=== PATIENT | male | born 1950 | race Caucasian/White ===

== ENCOUNTER 2019-10-07 02:40 | Observation (INO) | payer MEDICARE, SELFPAY ==
[2019-10-07] VITALS (122 sets, daily range): BP systolic 106–177; BP diastolic 66–114; PULSE 66–107; RESP 7–28; TEMP 36.6–37.3; O2SAT 87–99; BMI 25.0
--- NOTE | 2019-10-07 02:51 | PC.NURSE ---
EKG done at 0251 and shown to ER doctor
--- NOTE | 2019-10-07 02:52 | XR_ITS ---
WS: [id number] PORTABLE CHEST HISTORY: Chest pain COMPARISON: None available. Hyperinflated lungs with mild emphysema. No mass or pneumonia. Normal vasculature. No pleural effusio n or pneumothorax. Cardiac size: Normal. Mediastinum/Aorta: Mild atherosclerosis aorta. No osseous abnormality seen. XR/XR chest 1V portable [id number] IMPRESSION: No acute cardiopulmonary disease.
--- NOTE | 2019-10-07 02:52 | ECG_ITS ---
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 Measurements Intervals [place] Rate: 77 P: 41 NC: 210 QRS: 38 QRSD: 104 T: 17 QT: 384 QTc: 435 Interpretive Statements SINUS RHYTHM WITH FIRST DEGREE AV BLOCK WITH OCCASIONAL VENTRICULAR PREMATURE COMPLEXES NONSPECIFIC T-WAVE ABNORMALITY No previous ECG available for comparison Electronically Signed On 10-08-2019 0:14:07 CDT by Angel Wiley M.D. [id number]
[2019-10-07 03:09] LABS: Basophils # 0.1 10^3/uL (0.0-0.1); Basophils % 0.5 %; Eosinophils % 0.3 %; Hematocrit 49.5 % (42.0-52.0); Hemoglobin 16.7 g/dL (11.7-16.6); Lymphocytes # 2.2 10^3/uL (0.8-4.8); Lymphocytes % 17.2 %; Mean Corpuscular HGB Conc 33.7 g/dL (30.0-36.0); Mean Corpuscular Hemoglobin 30.8 pg (28.0-34.0); Mean Corpuscular Volume 91.2 fL (80-94); Mean Platelet Volume 11.4 fL (7.4-10.4); Monocytes # 0.7 10^3/uL (0.2-0.9); Monocytes % 5.3 %; Neutrophils # 9.88 10^3/uL (1.8-7.7); Neutrophils % 76.5 %; Nucleated Red Blood Cells % 0 %; Platelet Count 172 10^3/cmm (130-400); Red Blood Count 5.43 10^6/uL (4.1-5.3); Red Cell Distribution Width 13.2 % (12.1-15.1); White Blood Count 12.9 10^3/uL (4.0-10.0)
--- NOTE | 2019-10-07 03:14 | ED_ITS ---
HPI - Chest Pain General: Chief Complaint: Chest Pain Stated Complaint: chest pain Time Seen by Provider: 10/07/19 02:52 History of Present Illness: HPI narrative: 68-year-old male with a history of coronary disease. He has 1 stent to his RCA placed 6 years ago. He reports onset of chest pressure, discomfort, immediately after sexual intercourse this morning. It did not go away on its own, so he came to the emergency department. It is essentially resolved on my exam. He noted some mild shortness of breath. No cough, no fever. He had some nausea that is resolved as well. MD complaint: chest pain and chest discomfort Pertinent past history: coronary artery disease Onset (ago): hour(s) Timing of current episode: constant Prior episodes: No Onset: during exertion Pain location: substernal Pain radiation: none Severity: moderate Quality: tightness and heaviness Relieving factors: nothing Exacerbating factors: nothing Associated symptoms: Reports dyspnea and nausea; Deny abdominal pain, fever(s), palpitations or vomiting Review of Systems Const: Denies: fever(s) Eyes: Denies: change in vision or blurry vision ENMT: Denies: swelling of lips/tongue or sinus pain Card: Reports: chest pain and irregular heart rhythm; Denies: palpitations, edema or swelling of feet/ankles Resp: Reports: dyspnea GI: Reports: nausea; Denies: abdominal pain or vomiting : Denies: difficulty urinating, dysuria, urinary frequency, urinary urgency or hematuria Musc: Denies: neck pain or back pain Skin/Breast: Denies: rash or erythema Neuro: Denies: headache(s), dizziness or vertigo Psych: Denies: anxiety Physical Exam Const: GENERAL APPEARANCE: well developed ORIENTATION/CONSCIOUSNESS: Yes oriented to person, Yes oriented to place and Yes oriented to time HENMT: COMMON NORMALS: normocephalic, external ears normal and Normal external nose present HEAD & SCALP: normocephalic FACE & SINUS: normal facial exam NOSE: Normal external nose present and No nasal discharge present EXTERNAL EAR: Yes external ears normal MOUTH: tongue normal Eye: COMMON NORMALS: Equal, round and reactive pupils present, EOMs intact bilaterally and conjunctivae normal EYELID: eyelids normal CONJUNCTIVA: Yes conjunctivae normal PUPIL: Yes Equal, round and reactive pupils present Neck/C-Spine: GENERAL: No tracheal deviation Chest: COMMONS NORMALS: normal inspection of the chest CHEST: No tenderness Resp: COMMON NORMALS: clear to auscultation bilaterally EFFORT & INSPECTION: No tachypneic, No respiratory distress, No retractions, No uses accessory muscles and No tracheal deviation AUSCULTATION: clear to auscultation bilaterally, no rhonchi, no wheezes and lung sounds not diminished Cardio: COMMON NORMALS: regular rate RATE: regular rate RHYTHM: abnormal rhythm irregularly irregular HEART SOUNDS: no murmurs PERIPHERAL PULSES: radial pulses present GI: INSPECTION: No abdominal distension AUSCULTATION: No Hyperactive bowel sounds present and No Hypoactive bowel sounds present PALPATION: No Guarding due to palpation present (GI) and No Rigid due to palpation PERCUSSION: no dullness to percussion and no tympanic to percussion Neuro: SENSORIUM/ORIENTATION: Yes oriented to person, Yes oriented to place and Yes oriented to time Psych: COMMON NORMALS: mental status grossly normal Skin: COMMON NORMALS: no rashes or lesions noted GENERAL SKIN EXAM: no rashes or lesions noted Course Consultations: Consultation #1: brittaney Time: 04:14 Vital Signs: Vital signs: Vital Signs Temperature 97.8 F 10/07/19 02:47 Pulse Rate 87 10/07/19 03:25 Respiratory Rate 13 10/07/19 03:25 Blood Pressure 125/82 10/07/19 03:55 Pulse Oximetry 99 10/07/19 03:30 MDM - Chest Pain MDM Narrative: Medical decision making narrative: EKG reveals a sinus rhythm with frequent PVCs. He has some flattening of the T waves in inferior leads. Otherwise no acute ST changes. rates in the 60s. Hemoglobin 16.7. White count 12.9. His potassium is mildly low. His first troponin is 51, which is significantly elevated given a creatinine of only 1.1. With his history, slightly abnormal EKG, and elevated troponin, he will be observed. He is still pain-free. Lab Data: Labs: Lab Results 10/07/19 10/07/19 10/07/19 Range/Units 02:57 02:57 02:57 WBC 12.9 H (4.0-10.0) 10^3/ uL RBC 5.43 H (4.1-5.3) 10^6/u L Hgb 16.7 H (11.7-16.6) g/dL Hct 49.5 (42.0-52.0) % MCV 91.2 (80-94) fL MCH 30.8 (28.0-34.0) pg MCHC 33.7 (30.0-36.0) g/dL RDW 13.2 (12.1-15.1) % Plt Count 172 (130-400) 10^3/c mm MPV 11.4 H (7.4-10.4) fL Neut % (Auto) 76.5 % Lymph % (Auto) 17.2 % Montgomery % (Auto) 5.3 % Eos % (Auto) 0.3 % Baso % (Auto) 0.5 % Neut # (Auto) 9.88 H (1.8-7.7) 10^3/u L Lymph # (Auto) 2.2 (0.8-4.8) 10^3/u L Montgomery # (Auto) 0.7 (0.2-0.9) 10^3/u L Eos # (Auto) 0.0 (0.0-0.8) 10^3/u L Baso # (Auto) 0.1 (0.0-0.1) 10^3/u L Nucleated RBC % (a uto) 0 % Nucleated RBCs # 0.0 /100WBC Sodium 137 (136-145) mmol/L Potassium 3.3 L (3.5-5.1) mmol/L Chloride 103 (98-107) mmol/L Carbon Dioxide 22 (22-29) mmol/L Anion Gap 15.3 (5-19) BUN 13 (8-23) mg/dL Creatinine 1.1 (0.7-1.2) mg/dL GFR Calculation 66.4 L (90-130) mL/min Glucose 162 H (65-115) mg/dL Calculated Osmolal ity 284 L (285-295) mOsm/k g Calcium 10.0 (8.5-10.5) mg/dL Total Bilirubin 1.0 (0.15-1.2) mg/dL AST 22 (0-40) U/L ALT 20 (0-41) U/L Alkaline Phosphata se 131 H (40-130) IU/L Creatine Kinase 81 (39-308) U/L Troponin T Baselin e 51 H (0-15) ng/L NT-Pro-B Natriuret Pep 1136 H (0-125) pg/mL Total Protein 7.8 (6.6-8.7) g/dL Albumin 4.7 (3.5-5.2) g/dL Globulin 3.1 (1.3-4.6) g/dL Coding Level of Care Code ED Hooker Up for Chg Fwd Exam Comprehensive
[2019-10-07 03:30] LABS: Troponin(5th) Baseline 51 ng/L (0-15)
[2019-10-07 03:39] LABS: Alanine Aminotransferase 20 U/L (0-41); Albumin Level 4.7 g/dL (3.5-5.2); Alkaline Phosphatase 131 IU/L (40-130); Anion Gap 15.3 (5-19); Aspartate Amino Transferase 22 U/L (0-40); Blood Urea Nitrogen 13 mg/dL (8-23); Carbon Dioxide 22 mmol/L (22-29); Chloride 103 mmol/L (98-107); Creatine Phosphokinase 81 U/L (39-308); Globulin 3.1 g/dL (1.3-4.6); Glomerular Filtration Rate 66.4 mL/min (90-130); Glucose 162 mg/dL (65-115); NT Pro B Type Natriuretic Pept 1136 pg/mL (0-125); Osmolality Calculated 284 mOsm/kg (285-295); Potassium 3.3 mmol/L (3.5-5.1); Sodium 137 mmol/L (136-145); Total Protein 7.8 g/dL (6.6-8.7)
--- NOTE | 2019-10-07 04:07 | P.HP_ITS ---
Providers/Chief Complaint Primary Care Provider: Myriam Cabrera MD Chief Complaint: chest pain History of Present Illness Jean Carlos Chavez is a 68 year old male who carries history of established coronary disease with stent placement 6 years ago in [place], [place] came in with chief complaint of chest pain. Patient is stating that his chest pain started after sexual intercourse today, it lasted about an hour until he arrived in the ER and resolved spontaneously, he did not experience shortness of breath, orthopnea, PND, fever, diaphoresis, lightheadedness or radiation of pain towards his back. He is stating that this chest pain is not similar to the one when he had stent placed, he would describes this chest discomfort as achy without pressure sensation. He did not take any performance-enhancing medications, he did use marijuana this morning. Is very active for his age, does not take anything other than aspirin and metoprolol. He does not check his blood pressure at home. No recent fever, nausea, vomiting. Diagnosis in the ER revealed normal hemodynamics, blood pressure at the time of my evaluation was 160/94mmhg, he was chest pain-free, EKG showing multiple PVCs with flat T waves otherwise no ischemic or infarctive changes, troponin 50, polycythemia, leukocytosis, hypokalemia, BNP 1136, Review of Systems Const: Reports: chills, body aches and fatigue; Denies: fever(s) Eyes: Denies: change in vision ENMT: Denies: throat pain Card: Reports: chest pain; Denies: palpitations, irregular heart rhythm, swelling of feet/ankles, lightheadedness, syncope, pre-syncope, dyspnea on exertion or orthopnea Resp: Denies: dyspnea GI: Denies: abdominal pain, nausea, diarrhea or constipation : Denies: flank pain Musc: Denies: neck pain Skin/Breast: Denies: rash Neuro: Denies: headache(s) Psych: Denies: anxiety Endo: Denies: polyuria Damon/Lymph: Denies: easy bruising All/Imm: Denies: urticaria Medications/Allergies Allergies Allergy/AdvReac Type Severity Reaction Status Date / Time hydrocodone Allergy ADR-Confusi Verified 10/07/19 02:51 on PFSH Acute PFSH: Medical History (Updated 10/07/19 @ 04:32 by Sailaja Beasley MD) Coronary artery disease Marijuana abuse Unstable angina Surgical History (Updated 10/07/19 @ 04:28 by Sailaja Beasley MD) H/O right coronary artery stent placement Family History (Updated 10/07/19 @ 04:28 by Sailaja Beasley MD) Other CAD (coronary artery disease) Social History (Updated 10/07/19 @ 04:29 by Sailaja Beasley MD) Smoking and tobacco status: never smoked Alcohol intake: never Substance/Drug Use: current Substance/Drug use type: Marijuana Household members: spouse Housing: House Marital status: Current occupational status: retired Vitals/I&O/Wt Last Vital Signs Temp 97.8 F 10/07/19 02:47 Pulse 87 10/07/19 03:25 Resp 13 10/07/19 03:25 BP 125/82 10/07/19 03:55 Pulse Ox 99 10/07/19 03:30 Weight last 48 hrs Weight 86.183 kg Physical Exam Narrative: EXAM NARRATIVE: Very healthy elderly male Well-built male Chest pain-free S1, S2 no tachycardia or heart failure signs clinically Abdomen soft nontender bowel sounds present Lungs are clear to auscultation Appropriate mood and affect GCS 15 awake alert orientedx3 Lower extremity no edema gangrene or ulcer No active respiratory distress Data : 10/07/19 02:57 10/07/19 02:57 A&P Assessment and plan (1) Unstable angina: Status: Acute (2) PVCs (premature ventricular contractions): Status: Acute (3) Hypertensive urgency: Status: Acute Additional A&P Information Unstable angina Chest pain after sexual intercourse, substernal chest discomfort, troponin 51, EKG showing multiple PVCs with flat T waves I would monitor him overnight in CSU, serial troponins and EKG, Echo in the morning to rule out wall motion abnormality considering his established coronary disease Will obtain drug screen Currently chest pain-free, I would not initiate ACS protocol at this point, he will need cardiac stress test down the road to rule out coronary ischemia Hypertensive urgency I would add lisinopril 10 mg daily He has not been taking any antihypertensives at home Hypokalemia: 3.3, this most likely is the cause of premature ventricular contraction, he is not hypoxic, Normal intervals on EKG Potassium repleted Check mag level Check TSH Hypertension with hypokalemia will obtain renin, aldosterone level Marijuana abuse Patient did use marijuana this morning He is endorsing to using marijuana occasionally Full code DVT prophylaxis Lovenox Cardiac diet Attestations Medical Necessity Statement*: Anticipating discharge in less than 48 hours currently need overnight monitoring for PVCs, hypokalemia and unstable angina Time Spent in Patient Care: (>than 50% of time spent in counselling and/or direct pt care on unit) . 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
[2019-10-07] MEDS: potassium chloride ER 10 mEq Tablet 20 MEQ PO (04:24)
[2019-10-07] MEDS: aspirin 325 mg Tablet PO (04:25)
--- NOTE | 2019-10-07 04:52 | ECG_ITS ---
[facility] Test Date: 2019-10-07 Pat Name: Jean Carlos Chavez Department: Room: Gender: Male Document Design Specialist: : 1950 Requested By: Marcos Grewal Order Number: [id number] Suraj MD: Angel Wiley M.D. Measurements Intervals [place] Rate: 93 P: 49 DE: 221 QRS: 44 QRSD: 116 T: 35 QT: 362 QTc: 452 Interpretive Statements SINUS RHYTHM WITH FIRST DEGREE AV BLOCK WITH FREQUENT VENTRICULAR PREMATURE COMPLEXES POSSIBLE LEFT ATRIAL ENLARGEMENT [-0.1mV P WAVE IN V1/V2] MODERATE INTRAVENTRICULAR CONDUCTION DELAY [110+ ms QRS DURATION] NONSPECIFIC ST & T-WAVE ABNORMALITY No previous ECG available for comparison Electronically Signed On 10-08-2019 0:27:05 CDT by Angel Wiley M.D. [id number]
--- NOTE | 2019-10-07 05:52 | USCV_ITS ---
Jean Carlos Chavez Age: 68 Gender: M : 1950 Exam Date: 10/07/2019 09:14 Ordering Phys: Sailaja Beasley MD Technologist: Simón Guy [place] [facility] [place]: [place]AB ANG BP: 134 / 75 HR: 85 Rhythm: Sinus Technical Quality: Fair MEASUREMENTS (Male / Female) Normal Values 2D ECHO LV Diastolic Diameter PLAX 6.0 cm 4.2 - 5.9 / 3.9 - 5.3 cm LV Systolic Diameter PLAX 4.7 cm IVS Diastolic Thickness 1.4 cm 0.6 - 1.0 / 0.6 - 0.9 cm IVS Systolic Thickness 1.0 cm LVPW Diastolic Thickness 1.1 cm 0.6 - 1.0 / 0.6 - 0.9 cm LVPW Systolic Thickness 1.6 cm LVOT Diameter 2.3 cm LV Ejection Fraction 2D Teich 44.0 % LV Ejection Fraction MOD 2C 52.9 % LV Ejection Fraction 2C AL 54.3 % LA Diameter 3.8 cm LA Width 3.9 cm LA Height 5.6 cm RA Width 4.7 cm RA Height 4.9 cm Aorta at Sinotubular Diameter 0.9 cm M-MODE LV Diastolic Diameter MM 5.1 cm 4.2 - 5.9 / 3.9 - 5.3 cm LV Systolic Diameter MM 3.8 cm LV Ejection Fraction MM Teich 52.4 % IVS Diastolic Thickness MM 0.9 cm 0.6 - 1.0 / 0.6 - 0.9 cm IVS Systolic Thickness MM 1.3 cm LVPW Diastolic Thickness MM 1.0 cm 0.6 - 1.0 / 0.6 - 0.9 cm LVPW Systolic Thickness MM 1.6 cm RV Diastolic Diameter MM 1.9 cm Aortic Annulus Diameter 4.0 cm LA Ao Ratio MM 0.9 MV E Point Septal Separation 2.0 cm DOPPLER AV Peak Velocity 80.0 cm/s LVOT Peak Velocity 69.0 cm/s AV Area Cont Eq vti 3.5 cm squared AV Area Cont Eq pk 3.4 cm squared MV Area PHT 5.0 cm squared Mitral E to A Ratio 0.7 MV E' Velocity 10.0 cm/s Mitral E to MV E' Ratio 6.4 Mitral E to LV E' Lateral Ratio 5.4 Mitral E to LV E' Septal Ratio 7.9 TR Peak Velocity 110.0 cm/s TR Peak Gradient 4.9 mmHg Right Atrial Pressure 3.0 mmHg Pulmonary Artery Systolic Pressu 7.8 mmHg PV Peak Velocity 93.0 cm/s FINDINGS Left Ventricle Mildly dilated LV cavity. Severe hypokinesia of the basal and mid inferolateral wall segment. Mild hypokinesia of the basal and mid septal segments. LV ejection fraction around 50%.Grade I/IV diastolic dysfunction (abnormal relaxation filling pattern), normal to mildly elevated filling pressures. Right Ventricle The right ventricle is normal in size and function. Right Atrium The right atrium is normal in size. Left Atrium Mildly increased left atrial size. Mitral Valve Thickened mitral valve. Mild mitral valve regurgitation. Aortic Valve No gross abnormalities noted . Tricuspid Valve Trace to mild tricuspid valve regurgitation. Pulmonic Valve Pulmonic valve not well visualized. Pericardium Normal pericardium without effusion. Aorta Normal aortic annulus size. CONCLUSIONS Mildly dilated LV cavity. Severe hypokinesia of the basal and mid inferolateral wall segment. Mild hypokinesia of the basal and mid septal segments. LV ejection fraction around 50%. Grade I/IV diastolic dysfunction (abnormal relaxation filling pattern), normal to mildly elevated filling pressures. Thickened mitral valve. Mild mitral valve regurgitation. Mildly increased left atrial size. Trace to mild tricuspid valve regurgitation. Normal pulmonary artery pressures There is no pericardial effusion. There are no intracardiac masses. No previous study is available for comparison. Dr Angel Wiley MD [facility] (Electronically Signed) Final Date: 07 October 2019 10:27 S
[2019-10-07] MEDS: FUROsemide 20 mg Tablet PO (06:09)
[2019-10-07] MEDS: potassium chloride ER 10 mEq Tablet 40 MEQ PO (06:09)
[2019-10-07] MEDS: lisinopril 10 mg Tablet PO (06:10)
[2019-10-07 06:16] LABS: Troponin 5 2HR 166.3 ng/L (0-15); Troponin 5 2HR Delta 115.3 ABS# (0-10)
[2019-10-07 06:18] LABS: D Dimer 3.02 ug/mIFEU (0-0.59)
[2019-10-07 06:27] LABS: Thyroid Stimulating Hormone 2.66 uIU/mL (0.27-4.20)
[2019-10-07] MEDS: metoprolol tartrate 25 mg Tablet 12.5 MG PO ×2 (08:12→20:26)
[2019-10-07] MEDS: enoxaparin 40 mg/0.4 mL Syringe SUBCUT (08:13)
--- NOTE | 2019-10-07 08:30 | PM.PN ---
Subjective Subjective: Interval history: Patient denies being in pain this morning. Reports that his pain was dull achy radiating to his both upper extremities and rated at its maximum intensity 3 out of 10. Denies any associated nausea, shortness of breath or diaphoresis. His troponin elevation meets the criteria for non-ST elevation ID. Dr. Wiley was consulted to evaluate patient for coronary angiography. Vitals/I&O/Wt Last Vital Signs Temp 99.2 F 10/07/19 07:31 Pulse 81 10/07/19 07:31 Resp 22 H 10/07/19 07:31 BP 157/101 10/07/19 07:31 Pulse Ox 96 10/07/19 07:31 Weight last 48 hrs Weight 90.764 kg Weight 86.183 kg Physical Exam Const: COMMON NORMALS: no acute distress and patient oriented x3 Resp: COMMON NORMALS: normal respiratory effort and clear to auscultation bilaterally AUSCULTATION: clear to auscultation bilaterally Cardio: COMMON NORMALS: regular rate, regular rhythm and S2 normal heart sound present RATE: regular rate RHYTHM: regular rhythm HEART SOUNDS: S2 normal heart sound present OTHER: No lower extremity edema GI: COMMON NORMALS: Normal to inspection, nondistended, normoactive bowel sounds present, Soft to palpation and non-tender PALPATION: Yes Soft to palpation Neuro: COMMON NORMALS: patient oriented x3 and no focal motor deficits Data : 10/07/19 02:57 10/07/19 02:57 A&P Assessment and plan (1) PVCs (premature ventricular contractions): Status: Acute (2) Hypertensive urgency: Status: Acute (3) Non-ST elevation ID (NSTEMI): Type I. Status: Acute Additional A&P Information Unstable angina Chest pain after sexual intercourse, substernal chest discomfort, troponin 51, EKG showing multiple PVCs with flat T waves I would monitor him overnight in CSU, serial troponins and EKG, Echo in the morning to rule out wall motion abnormality considering his established coronary disease Will obtain drug screen Currently chest pain-free, I would not initiate ACS protocol at this point, he will need cardiac stress test down the road to rule out coronary ischemia Hypertensive urgency I would add lisinopril 10 mg daily He has not been taking any antihypertensives at home Hypokalemia: 3.3, this most likely is the cause of premature ventricular contraction, he is not hypoxic, Normal intervals on EKG Potassium repleted Check mag level Check TSH Hypertension with hypokalemia will obtain renin, aldosterone level Marijuana abuse Patient did use marijuana this morning He is endorsing to using marijuana occasionally Full code DVT prophylaxis Lovenox Cardiac diet PLAN: I had extensive discussion with patient to stop smoking marijuana which he does daily and he voiced understanding. Awaiting cardiology evaluation. Patient will need coronary angiography for further evaluation. Leukocytosis felt to be stress related. Will obtain UA to rule out UTI. Will start patient on heparin drip and nitroglycerin ointment 1 inch every 6 hours. Attestations Medical Necessity Statement*: Patient was non-ST elevation ID requires hospitalization for monitoring, treatment and evaluation. Time Spent in Patient Care: 16 - 35 minutes Coding Level of Care Code Acute Public Relations Player for Taylor Rocha Diagnoses PVCs (premature ventricular contractions) I49.3 Hypertensive urgency I16.0 Non-ST elevation ID (NSTEMI) I21.4
[2019-10-07 08:35] LABS: Amphetamines Screen Urine Negative (Negative); Barbiturates Screen Urine Negative (Negative); Benzodiazepines Screen Urine Negative (Negative); Cocaine Screen Urine Negative (Negative); Opiate Screen Urine Negative (Negative); PCP Screen Urine Negative (Negative); THC Screen Urine Positive (Negative)
[2019-10-07 08:38] LABS: Magnesium 1.8 mg/dL (1.7-2.3)
[2019-10-07] MEDS: atorvastatin 40 mg Tablet 20 MG PO (08:54)
[2019-10-07] MEDS: heparin drip 25,000 UNIT/500 ML PREMIX 25 UNIT IV (09:27)
[2019-10-07] MEDS: nitroglycerin 1 gm/inch oint Pkt 1 INCH TOPICAL ×3 (09:34→21:21)
--- NOTE | 2019-10-07 09:36 | PM.CONSULT ---
Providers/Reason For Consult Consulting Physican/Specialty*: SAKSHI Wiley MD/cardiology Reason for Consult*: Patient with a history of coronary artery disease, presenting with unstable angina Attending Physician: Dusty Manuel MD Primary Care Provider: Myriam Cabrera MD History of Present Illness History of Present Illness Jean Carlos Chavez is a 68 year old male, is admitted to hospital through the emergency room, where he presented with complaints of prolonged episode of chest pain. This patient has a history of coronary disease and had PCI of the right coronary artery? Approximately 6 years ago, in [place]. This patient was living in [place] at that time. He had 2 or 3 exercise stress test since then, the most recent one being 2 years ago. According to the patient, these tests were reportedly normal. Details are not available. Last night, he started having chest pain after having sex. The pain was mild to moderate intensity, radiating to both shoulders and also to both upper arms. He took a baby aspirin at home. Since there was no improvement of the pain, he decided to come to the hospital. By the time he reached the hospital, most of the symptoms were gone. The pain middle lasted for an hour or so. Currently at the time of my examination, patient is pain-free. He was placed on a nitro paste in the emergency room but because of the severe headache, it was discontinued. He denies any fever, chills or cough. No abdominal pain or dysuria. No unusual headache or blurring of vision. No other specific complaints. He has no known history for high blood pressure, diabetes or dyslipidemia. He has a history of? Arrhythmia. He was taking aspirin and beta-kyra. He is not on any statin . No significant family history for atherosclerotic heart disease. Review of Systems Narrative: CONSTITUTIONAL: No fever or chills. EYES: No blurring of vision or other visual disturbances lately. ENT: No hoarseness of voice, auditory disturbances or sore throat. CARDIOVASCULAR: As mentioned above. RESPIRATORY: No significant cough. GASTROINTESTINAL: No hematemesis or melena. GENITOURINARY: No dysuria or hematuria. INTEGUMENTARY: No skin rashes or history of skin cancer. NEURO: No transient ischemic attacks or amaurosis. PSYCHIATRIC: No history of psychosis or major depression. HEMATOLOGIC: No bleeding disorders or significant anemia. ENDOCRINE: No history of polyuria or polydipsia. MUSCULOSKELETAL: No recent joint pain or swelling. ALLERGY/IMMUNOLOGY: As mentioned above. Meds/Allergies Home Medications and Allergies Home Medications Medication Instructions Recorded Confirmed Last Taken Type aspirin [Aspirin Low Dose] 81 mg PO DAILY 10/07/19 10/07/19 10/06/19 08:00 History metoprolol tartrate 25 mg PO BID 10/07/19 10/07/19 10/06/19 08:00 History Allergies Allergy/AdvReac Type Severity Reaction Status Date / Time hydrocodone Allergy ADR-Confusi Verified 10/07/19 02:51 on Current Medications Current Medications Generic Name Dose Route Start Last Admin Trade Name Freq PRN Reason Stop Dose Admin Atorvastatin Calcium 20 mg 10/07/19 09:00 10/07/19 08:54 Lipitor PO 20 mg DAILY JOI Administration Heparin Sodium/Sodium Chloride 25,000 unit in 500 mls @ 21.783 mls/hr 10/07/19 08:45 10/07/19 09:27 Heparin Drip IV 13.77 unit/kg/hr .[id number] JOI 25 mls/hr Administration 12 UNIT/KG/HR Lisinopril 10 mg 10/07/19 05:52 10/07/19 09:18 Prinivil PO Not Given DAILY JOI Metoprolol Tartrate 12.5 mg 10/07/19 09:00 10/07/19 08:12 Lopressor PO 12.5 mg BID JOI Administration Nitroglycerin 1 inch 10/07/19 08:45 10/07/19 09:34 Nitro-Bid TOPICAL 1 inch Q6H JOI Administration PFSH Acute PFSH: Medical History (Updated 10/07/19 @ 12:50 by Angel Wiley MD) Atherosclerotic heart disease of [place] coronary artery with unstable angina pectoris Coronary artery disease Marijuana abuse Unstable angina Surgical History H/O right coronary artery stent placement Family History Other CAD (coronary artery disease) Social History Smoking and tobacco status: never smoked Alcohol intake: never Substance/Drug Use: current Substance/Drug use type: Marijuana Household members: spouse Housing: House Marital status: Current occupational status: retired Vitals/I&O/Wt Last Vital Signs Temp 99.2 F 10/07/19 07:31 Pulse 81 10/07/19 07:31 Resp 22 H 10/07/19 07:31 BP 157/101 10/07/19 07:31 Pulse Ox 96 10/07/19 07:31 Weight last 48 hrs Weight 200 lb 1.6 oz Weight 190 lb Physical Exam Narrative: EXAM NARRATIVE: GENERAL: The patient is alert and oriented times three. Not in any acute distress. HEENT: No significant pallor, icterus or lymphadenopathy.Oral cavity: There are no mucous membrane lesions. NECK: Trachea appears to be central. No masses noted. No JVD or thyromegaly appreciated. RESPIRATORY: Chest is symmetrical. No intercostals muscle retraction or any accessory muscle activation. There is no chest wall tenderness. Breath sounds are heard bilaterally. No rales or rhonchi heard. No evidence of any consolidation. BREASTS: Deferred. HEART: The heart sounds are normal. No S3 or S4. No significant murmurs. No pericardial rub ABDOMEN: No vessel pulsations or distention. No tenderness. No organomegaly appreciated. Bowel sounds are normally heard. : Deferred. RECTAL: Deferred. LYMPHATIC: No lymphadenopathy noted in the neck or groin. EXTREMITIES: No edema or cyanosis. No clubbing. The dorsalis pedis pulses are palpable and good volume and amplitude. Posterior pulses somewhat weak MUSCULOSKELETAL: No acute joint deformities or swelling SKIN: There are no significant rashes or ecchymosis NEUROPSYCHIATRIC: The patient is alert and oriented x3. Appears to be in a good mood. No tremors or rigidity noted. Data Labs: Other Labs: Laboratory Last Values WBC 12.9 10^3/uL (4.0 -10.0) H 10/07/19 02:57 RBC 5.43 10^6/uL (4.1 -5.3) H 10/07/19 02:57 Hgb 16.7 g/dL (11.7-1 6.6) H 10/07/19 02:57 Hct 49.5 % (42.0-52.0 ) 10/07/19 02:57 MCV 91.2 fL (80-94) 10/07/19 02:57 MCH 30.8 pg (28.0-34. 0) 10/07/19 02:57 MCHC 33.7 g/dL (30.0-3 6.0) 10/07/19 02:57 RDW 13.2 % (12.1-15.1 ) 10/07/19 02:57 Plt Count 172 10^3/cmm (130 -400) 10/07/19 02:57 MPV 11.4 fL (7.4-10.4 ) H 10/07/19 02:57 Neut % (Auto) 76.5 % 10/07/19 02:57 Lymph % (Auto) 17.2 % 10/07/19 02:57 [place] % (Auto) 5.3 % 10/07/19 02:57 Eos % (Auto) 0.3 % 10/07/19 02:57 Baso % (Auto) 0.5 % 10/07/19 02:57 Neut # (Auto) 9.88 10^3/uL (1.8 -7.7) H 10/07/19 02:57 Lymph # (Auto) 2.2 10^3/uL (0.8- 4.8) 10/07/19 02:57 [place] # (Auto) 0.7 10^3/uL (0.2- 0.9) 10/07/19 02:57 Eos # (Auto) 0.0 10^3/uL (0.0- 0.8) 10/07/19 02:57 Baso # (Auto) 0.1 10^3/uL (0.0- 0.1) 10/07/19 02:57 Nucleated RBC % (a uto) 0 % 10/07/19 02:57 Nucleated RBCs # 0.0 /100WBC 10/07/19 02:57 D-Dimer 3.02 ug/mIFEU (0- 0.59) H 10/07/19 02:57 Sodium 137 mmol/L (136-1 45) 10/07/19 02:57 Potassium 3.3 mmol/L (3.5-5 .1) L 10/07/19 02:57 Chloride 103 mmol/L (98-10 7) 10/07/19 02:57 Carbon Dioxide 22 mmol/L (22-29) 10/07/19 02:57 Anion Gap 15.3 (5-19) 10/07/19 02:57 BUN 13 mg/dL (8-23) 10/07/19 02:57 Creatinine 1.1 mg/dL (0.7-1. 2) 10/07/19 02:57 GFR Calculation 66.4 mL/min (90-1 30) L 10/07/19 02:57 Glucose 162 mg/dL (65-115 ) H 10/07/19 02:57 Calculated Osmolal ity 284 mOsm/kg (285- 295) L 10/07/19 02:57 Calcium 10.0 mg/dL (8.5-1 0.5) 10/07/19 02:57 Magnesium 1.8 mg/dL (1.7-2. 3) 10/07/19 05:42 Total Bilirubin 1.0 mg/dL (0.15-1 .2) 10/07/19 02:57 AST 22 U/L (0-40) 10/07/19 02:57 ALT 20 U/L (0-41) 10/07/19 02:57 Alkaline Phosphata se 131 IU/L (40-130) H 10/07/19 02:57 Creatine Kinase 81 U/L (39-308) 10/07/19 02:57 Troponin T Baselin e 51 ng/L (0-15) H 10/07/19 02:57 Troponin T 120 Min [place] 166.3 ng/L (0-15) H 10/07/19 05:42 Delta Troponin T 115.3 ABS# (0-10) H* 10/07/19 05:42 NT-Pro-B Natriuret Pep 1136 pg/mL (0-125 ) H 10/07/19 02:57 Total Protein 7.8 g/dL (6.6-8.7 ) 10/07/19 02:57 Albumin 4.7 g/dL (3.5-5.2 ) 10/07/19 02:57 Globulin 3.1 g/dL (1.3-4.6 ) 10/07/19 02:57 TSH 2.66 uIU/mL (0.27 -4.20) 10/07/19 05:42 Urine Opiates Scre en Negative ng/mL (N egative) 10/07/19 07:30 Ur Barbiturates Sc reen Negative ng/mL (N egative) 10/07/19 07:30 Ur Phencyclidine S crn Negative ng/mL (N egative) 10/07/19 07:30 Ur Amphetamines Sc reen Negative ng/mL (N egative) 10/07/19 07:30 U Benzodiazepines Scrn Negative ng/mL (N egative) 10/07/19 07:30 Urine Cocaine Scre en Negative ng/mL (N egative) 10/07/19 07:30 U Marijuana (THC) Screen Positive ng/mL (N egative) H 10/07/19 07:30 Imaging^: CXR: My impression: Normal cardiac silhouette with no lung infiltrates. No acute pathology noted. Echo: My impression: Severe hypokinesia of the basal and mid inferolateral wall segment. Mild hypokinesia of the basal and mid septal segments. LV ejection fraction around 50%. Grade I/IV diastolic dysfunction (abnormal relaxation filling pattern), normal to mildly elevated filling pressures. Thickened mitral valve. Mild mitral valve regurgitation. Mildly increased left atrial size. Trace to mild tricuspid valve regurgitation. Normal pulmonary artery pressures There is no pericardial effusion. There are no intracardiac masses. No previous study is available for comparison. EKG^: EKG 1: My Interpretation: The EKG revealed normal sinus rhythm with some nonspecific T wave changes. First-degree AV block. Possible left atrial enlargement. Frequent PVCs. A&P Assessment and plan (1) Atherosclerotic heart disease of [place] coronary artery with unstable angina pectoris: Patient is clinical features are consistent with unstable angina. Possibility of restenosis of the intervened lesion of the right coronary arteries/progression of disease in the other vessels are considerations. Hemodynamically seems to be stable. He will be started on subcu Lovenox, beta-kyra, aspirin, statin and Plavix. Based on his clinical progress, further mild decisions will be made. Status: Acute Qualifiers: [place] vs. transplanted heart: [place] heart Qualified Code(s): I25.110 - Atherosclerotic heart disease of [place] coronary artery with unstable angina pectoris (2) Non-ST elevation [place] (NSTEMI): In view of the patient's multiple wall motion normalities by echocardiogram, he may benefit from an early cardiac catheterization to further evaluate his coronary status and decide on further management. Status: Acute (3) PVCs (premature ventricular contractions): Patient may be treated with a low-dose of beta-kyra. The dose may be gradually increased. Status: Acute (4) Hypokalemia: The needs to be supplemented. Status: Acute (5) Neutrophilic leukocytosis: This could be an acute phase reaction. Status: Acute Additional A&P Information I may start the patient on Plavix 300 mg p.o. now followed by 75 mg p.o. daily. Metoprolol 25 mg p.o. twice daily. Continue on the other current medications. Repeat the BMP, CBC and a thyroid profile. After reviewing the above and also based on the patient clinical progress, further recommendations will be made. Thank you for the opportunity to evaluate this patient and make these recommendations Addendum Repeat troponin T was found to be around 700. Discussed with the patient about further management options. For further evaluation of his cardiac status, a cardiac catheterization would be appropriate. The risk of bleeding, hematoma, vascular injury, myocardial infarction, CVA, renal failure and other concomitant complications were explained in detail. Patient understood this well and consented to proceed. Patient also was told that we do not have a surgical backup at this time and that he if he prefers, can do the angiogram tomorrow. Patient understands the implication and is wanting to go ahead with the procedure. Currently he is pain-free with a stable hemodynamics. Coding Level of Care Code Acute Bottom Stop Attacher for Taylor Fwkeenan History Comprehensive Exam Comprehensive Medical Decision Making High Complexity Diagnoses Atherosclerotic heart disease of [place] coronary artery with unstable angina pectoris I25.110 [place] vs. transplanted heart: [place] heart Non-ST elevation [place] (NSTEMI) I21.4 PVCs (premature ventricular contractions) I49.3 Hypokalemia E87.6 Neutrophilic leukocytosis D72.9 Time Spent (min) 65
--- NOTE | 2019-10-07 12:47 | ECG_ITS ---
[facility] Test Date: 2019-10-07 Pat Name: Jean Carlos Chavez Department: Room: 103 Gender: Male Batch Attendant: : 1950 Requested By: Angel Wiley Order Number: [id number] Suraj MD: Angel Wiley M.D. Measurements Intervals Wiley Rate: 78 P: 45 IN: 204 QRS: 23 QRSD: 98 T: -19 QT: 403 QTc: 461 Interpretive Statements SINUS RHYTHM WITH OCCASIONAL VENTRICULAR PREMATURE COMPLEXES POSSIBLE INFERIOR MYOCARDIAL INFARCTION [30 ms Q WAVE IN II/aVF], OF INDETERMINATE AGE Compared to ECG 10/07/2019 04:48:26 Myocardial infarct finding now present First degree AV block no longer present T-wave abnormality no longer present Electronically Signed On 10-08-2019 0:18:34 CDT by Angel Wiley M.D. [email or web address]
[2019-10-07] MEDS: clopidogrel 300 mg Tablet PO (13:10)
[2019-10-07 13:56] LABS: Basophils % 0.1 %; Eosinophils % 0.1 %; Hematocrit 49.3 % (42.0-52.0); Hemoglobin 16.2 g/dL (11.7-16.6); Lymphocytes # 2.1 10^3/uL (0.8-4.8); Mean Corpuscular HGB Conc 32.9 g/dL (30.0-36.0); Mean Corpuscular Hemoglobin 30.8 pg (28.0-34.0); Mean Corpuscular Volume 93.7 fL (80-94); Mean Platelet Volume 11.6 fL (7.4-10.4); Monocytes # 0.8 10^3/uL (0.2-0.9); Monocytes % 5.4 %; Neutrophils # 12.24 10^3/uL (1.8-7.7); Neutrophils % 80.1 %; Nucleated Red Blood Cells % 0 %; Platelet Count 182 10^3/cmm (130-400); Red Blood Count 5.26 10^6/uL (4.1-5.3); Red Cell Distribution Width 13.2 % (12.1-15.1); White Blood Count 15.3 10^3/uL (4.0-10.0)
[2019-10-07] MEDS: diphenhydrAMINE 50 mg Capsule PO (14:24)
[2019-10-07] MEDS: sodium chloride 0.9% 1,000 ML 30 ML IV (14:25)
[2019-10-07 14:29] LABS: Anion Gap 15.5 (5-19); Blood Urea Nitrogen 11 mg/dL (8-23); Calcium 9.7 mg/dL (8.5-10.5); Carbon Dioxide 22 mmol/L (22-29); Chloride 103 mmol/L (98-107); Chol HDL Ratio 4.58 mg/dL (1.0-5.00); Cholesterol 165 mg/dL (0-200); Glomerular Filtration Rate 66.4 mL/min (90-130); Glucose 127 mg/dL (65-115); HDL Cholesterol 36 mg/dL (60-100); LDL Cholesterol Calculated 112 mg/dL (50-129); LDL HDL Ratio 3.11 RATIO (0.00-3.22); Osmolality Calculated 282 mOsm/kg (285-295); Potassium 3.5 mmol/L (3.5-5.1); Sodium 137 mmol/L (136-145); Triglycerides 83 mg/dL (0-150)
[2019-10-07 14:40] LABS: Troponin T (5th) Once 788 ng/L (0-15)
--- NOTE | 2019-10-07 15:44 | XACV_ITS ---
Exam Room: [facility] Ht: 185 cm Wt: 91 kg BSA: 2.17 m2 Gender: Male : 1950 Any Known Allergies: Hydrocodone Exam Priority: Routine Procedure(s): Procedure Description: Diagnostic procedure Procedure Description: PCI procedure Procedure Description: Left ventriculography Procedure Description: Drug Eluting Coronary Stent Procedure Description: PTCA Procedure Description: Coronary Angiography Diagnostic Cath Status: Urgent Diagnostic Findings Distal Right Coronary Artery: Severe 100% stenosis, DONNY: 0 flow. Coronary angiography shows right dominance. The left main is a medium caliber vessel with an ostial narrowing from 20%. The left anterior descending artery is a medium caliber vessel which appears to wrap around the LV apex. The proximal artery was found to have mild diffuse intimal regularities. Right after the first septal audio visual manager, there was significant narrowing of around 40%. The distal artery was found to have no significant stenotic lesions. The first diagonal branch was found to have 40 to 50% diffuse narrowing in the proximal segment. The artery gives of multiple branches proximally. The left circumflex artery is a medium caliber vessel which was found to have around 50% tubular narrowing in the midsegment. The proximal segment of the artery was found to have mild diffuse intimal irregularities. The right coronary artery is medium caliber dominant vessel which was found to have mild diffuse intimal regularities proximally with some tortuosity. The distal segment of the artery was found to be stented, just before the bifurcation. Soon after the stented segment, there is subtotal occlusion of the artery at the bifurcation. The PLV and PDA branches were found to have mild diffuse intimal irregularities. PCI Status: Urgent PCI Indication: NSTE - ACS Interventional Findings Distal Right Coronary Artery: 100% stenosis treated with AB MINI TREK 2.00X20 RX BALLOON and MDT R JUSTIN 2.5X12 FOX. 0% residual stenosis, DONNY: 3 flow. Successful PCI to distal RCA into PLV. 2 wires were used [address] the other in PDA distal lesion was dilated with AB trek 2.0 x 12 mm balloon followed by deployment of JUSTIN INTEGRITY 2.5 x 12 mm stent posted at high LJ to ensure proper approximation. Excellent angiographic result with DONNY-3 flow was achieved. . Conclusions There is severe coronary artery disease with one vessel disease. Mild left ventricular systolic dysfunction. Ejection fraction of 45%. 68-year-old white male with history of coronary disease, status post PCI of the right coronary artery, presented with symptoms of unstable angina and non-ST elevation myocardial infarction. His echocardiogram revealed multiple wall motion normalities with an ejection fraction around 50%. His troponin T was in the 700 range. In view of his clinical presentation and the abnormal EGD findings, in order to further evaluate his coronary status, a cardiac catheterization was recommended. Patient underwent left heart catheterization with a left and right coronary angiogram and LV angiogram today. The findings are as follows. Subtotal occlusion of the distal right coronary artery, at this bifurcation, beyond the stented segment. Mild to moderate diffuse disease in the other vessels. LVEDP of 9 mmHg. LV ejection fraction around 45-50%. Based on the angiographic findings, it was thought to be appropriate to consider PCI of the distal RCA lesion. I discussed and reviewed the cardiac catheterization data with Dr. Carrera who concurred with this plan. Dr. Carrera took over further management of this patient at this point. Distal Right Coronary Artery was treated with Balloon and Drug Eluting Stent. Recommendations 1-Return to inpatient for close monitoring and routine cath care 2-Risk factor modification for secondary prevention 3-Statin and aspirin 81 mg life--long, if tolerated 4-Patient was pre-loaded with 300 mg of Plavix, continue Plavix 75mg p.o. daily for at least one year. We will assess at the end of one year again to continue if further or not 5-Continue optimal medical management 6-Follow up with Dr. Wiley in four weeks and your primary care in 10 days . Diagnostic RX Recommendation: PCI w/o planned CABG Ejection Fraction: 45.0 % LV EDP: 9 mmHg Left Ventriculography Findings: The LV gram was performed in the PIMENTEL projection. The LV cavity was found to be mildly dilated. There was moderate hypokinesia of the basal and mid inferior wall segment. Mild hypokinesia of the anteroapical region also was noted. the LV gram was of suboptimal quality. The ejection fraction was around 45-50%. There was no filling defect. No significant mitral valve prolapse or mitral regurgitation. Pressures Phase:Rest AO : 156 mmHg / 87 mmHg ( 97 mmHg ) @ 11:06:00 AM 128 mmHg / 71 mmHg ( 95 mmHg ) @ 11:15:00 AM 134 mmHg / 75 mmHg ( 99 mmHg ) @ 11:15:00 AM LV : 121 mmHg / -18 mmHg / @ 11:14:00 AM 136 mmHg / -17 mmHg / @ 11:15:00 AM 131 mmHg / -15 mmHg / @ 11:15:00 AM Valves Phase:DefaultPhase AV : 3.0 mmHg @ 5:04:47 PM AV Mean Gradient: 19.0 mmHg @ 5:04:47 PM Clinical Evaluation EBL: 5mL-10mL Procedural Details Procedure Consent Obtained. Pre-Procedure Time Out. Identified patient by full name and date of as verbalized by the patient/guarantor. Does the consent match the physician's order: Yes. Accurate & Complete Informed Consent: Yes. Inpatient/Outpatient History & Physical on Chart: Yes. If H&P is completed, is and addenduem needed: No; If yes, is the addendum complete: N/A. Visualize and Verify Site with Patient/Guarantor: N/A. Relevant Radiology Images available: Yes. Pre-op teaching completed and patient verbalized understanding. The risks, benefits, and alternatives of sedation and/or procedure were discussed by physician. The patient agrees to continue. Procedure started. Correct patient, site and procedure confirmed by cath team. Current diagnosis: Chest Pain. PERRLA. Strong, equal hand certified shorthand reporter bilaterally. Lungs clear x 5 lobes. IV Site on Arrival: 20 gauge in the left anticubital. IV Fluids: 0.9% NaCl at KVO. 0 mL infused prior to medical laboratory technologist. Pre Procedural Pulses: bilateral dorsalis pedis was 2+. Pre Procedural Pulses: bilateral posterior tibial was 2+. Pre Procedural Pulses: bilateral radial was 3+. Oxygen started at 2liters/min via nasal canula. bilateral groins was prepped with chloroprep then draped in the usual sterile fashion. right radial was prepped with chloroprep then draped in the usual sterile fashion. Physician notified. Baseline sample Acquired. HR: 76 BPM. Equipment: 6F - Femoral. Cardiac Cath Pack. ACIST Manifold Kit Model BT 2000. Heparinized Saline (2 units/mL), 1000 mL bag. Kit, Micropuncture. Physician arrived. Physician scrubbed in. Immediate Pre-Procedure Time Out. Correct Patient: Yes; Correct Procedure: Yes; Correct Site: Yes; Correct Patient Position: Yes; Correct Supplies: Yes; Dried Flammable Prep: Yes; Blood Products Available: No;. Lidocaine 1% infiltrated to the right groin. Arterial access obtained with micropuncture set. A 5 tamazight JL4 catheter in over wire. ACT drawn. Results 124 seconds. Therapeutic limits - pre-heparin administration 90-150 seconds and monitoring heparin during a vascular procedure >250 seconds. Multiple views taken of left coronary artery. Catheter out. A 5 tamazight JR4 catheter in over wire. Multiple views taken of right coronary artery. A 5 tamazight Angled Pig catheter in over wire. EDP Sample taken: LV 121/-19,7; HR: 82 BPM; SpO2: 95%. LV gram performed in PIMENTEL @ 10 mL/second for a total of 30 mL. EDP Sample taken: LV 136/-18,10; HR: 79 BPM; SpO2: 95%. Pullback taken: LV 131/-16,8; AO 128/71(95); Mean: 19mmHg, Peak to Peak: 3mmHg, SEP: 7sec/min; HR: 80 BPM; SpO2: 96%. Dr. Carrera notified. Sheath flushed peridoically to maintain patency. Dr. Carrera and Dr. Nolan reviewed films. Dr. Carrera scrubbed in to perform intervention. 5FR sheath exchanged for a 6FR sheath. 6 tamazight AL 0.75 guide catheter was inserted over the wire. [place] guidewire was advanced through the guide catheter to lesion in the distal RCA. 2nd cougar wire inserted to the RCA. Inflation number : 1 A AB MINI TREK 2.00X20 RX BALLOON was prepped and advanced across the Dist RCA , then inflated to 12 LJ for 0:09 seconds. Inflation number: 2 The AB MINI TREK 2.00X20 RX BALLOON was reinflated across the Dist RCA, to 12 LJ for 0:13 seconds. Inflation number: 3 The AB MINI TREK 2.00X20 RX BALLOON was reinflated across the Dist RCA, to 14 LJ for 0:11 seconds. Balloon out. 2.5x12mm stent inserted but removed intact. Inflation number: 4 The AB MINI TREK 2.00X20 RX BALLOON was reinflated across the Dist RCA, to 14 LJ for 0:07 seconds. Inflation Number : 5 A COLLIN R JUSTIN 2.5X12 FOX -Lot Number#[id number] was prepped and advanced across the Dist RCA. The stent was deployed at 16 LJ for 0:15 seconds. Stent expiration date: 12/30/2019. Stent balloon and wire out. 1st cougar wire out. Results checked. 2nd cougar wire out. Guide catheter out. ACT drawn. Results 238 seconds. Therapeutic limits - pre-heparin administration 90-150 seconds and monitoring heparin during a vascular procedure >250 seconds. Sheath(s) sutured into position with 2-0 silk and sterile 4x4's and Op-site applied over the site. No oozing or signs and symptoms of hematoma noted. Arterial sheath flushed and connected to tranducer and pressure bag with heparinized saline. A Suture was successful obtaining hemostatsis at the Right Femoral artery insertion site. Post Procedure: Pulses reassessed and unchanged. PERRLA. Strong, equal hand certified shorthand reporter bilaterally. No VTE prophylaxis required. Contrast type used: Omnipaque 300 mgI/mL, 500 mL bottle. PCI Indication: NSTE. Post-op diagnosis: CAD. Complications: None. Estimated blood loss: 5mL-10mL. Patient transferred by bed to 1st floor. Medication's Wasted: Lidocaine 1% = 6 mL. Medication's Wasted: Heparin = 1500 units. Total IV fluids: 215 mL. Vital chart was stopped. Site: Right Femoral artery Sheath Size: 5 Fr Hemostasis Method: Suture Hemostasis Success: Successful Procedure Medications Start: 3:58 PM Stop: 3:58 PM Medication: Versed Amount: 1 mg Route: I.V. Start: 3:58 PM Stop: 3:58 PM Medication: Fentanyl Amount: 50 mcg Route: I.V. Start: 4:08 PM Stop: 4:08 PM Medication: Heparin Amount: 1500 units Route: I.V. Start: 4:14 PM Stop: 4:14 PM Medication: 0.9% Saline Amount: 200 ml Route: I.V. bolus Start: 4:26 PM Stop: 4:26 PM Medication: Versed Amount: 1 mg Route: I.V. Start: 4:26 PM Stop: 4:26 PM Medication: Fentanyl Amount: 50 mcg Route: I.V. Start: 4:28 PM Stop: 4:28 PM Medication: Heparin Amount: 6000 units Route: I.V. Start: 4:34 PM Stop: 4:34 PM Medication: Versed Amount: 2 mg Route: I.V. Start: 4:38 PM Stop: 4:38 PM Medication: Fentanyl Amount: 50 mcg Route: I.V. Start: 4:42 PM Stop: 4:42 PM Medication: Fentanyl Amount: 50 mcg Route: I.V. Start: 4:43 PM Stop: 4:43 PM Medication: Nitrogylcerin Amount: 200 mcg Route: I.C. I, the attending physician, have reviewed and verified all procedure medications. Yes, all medications given per verbal order History/Risk Factors Hypertension: No Dyslipidemia: No Peripheral Arterial Disease (PAD): No Myocardial Infarction (OR): Yes Obesity: No Renal Disease: No Prior Interventions PCI: Yes CABG: No Valve Surgery: No Report Signatures Interventional Workflow - Finalized by: Sailaja Carrera MD on 10/20/2019 2:03:45 PM Diagnostic Workflow - Finalized by:Dr Angel Wiley MD [facility] on 10/07/2019 6:00:17 PM
--- NOTE | 2019-10-07 15:47 | P.HPUD_ITS ---
Surgery/Procedure H&P Update DATE OF PROCEDURE: October 07, 2019 DATE H&P PERFORMED: 10/07/19 PREOP DIAGNOSIS: Non-ST relation myocardial infarction/unstable angina PLANNED PROCEDURE: Left heart catheterization with a left and rt coronary a ngiogram and possible PCI PATIENT REASSESSED PRIOR TO SEDATION, WITH NO CHANGE NOTED: Yes PHYSICAL EXAM: alert, oriented x 3, clear to auscultation bilaterally and regular rate & rhythm AIRWAY EVAL/ANESTHESIA PLAN: normal airway, ASA III, Monitored Anesthesia, Local Anesthesia, Risks, benefits & alternatives of sedation and/or procedure discussed and Patient agrees to continue as planned
--- NOTE | 2019-10-07 16:00 | PC.NURSE ---
Patient transferred to geophysical laboratory director.
[2019-10-07 19:47] LABS: Partial Thromboplastin Time > 250.0 SECONDS (23.9-36.7)
[2019-10-07] MEDS: ondansetron 2 mg/ML SDV 2 mL 4 MG IVP (20:14)
--- NOTE | 2019-10-07 20:22 | PC.NURSE ---
Spoke with Dr. Wiley. Ordered to keep fluids running at 75 ml/hr.
[2019-10-07] MEDS: sodium chloride 0.9% 1,000 ML 75 ML IV (20:28)
--- NOTE | 2019-10-07 21:31 | PC.NURSE ---
BJ, ICU nurse states that patient's Heparin drip was shut off before patient went to field laboratory operator.
[2019-10-07 22:49] LABS: Partial Thromboplastin Time 40.7 SECONDS (23.9-36.7)
[2019-10-07] MEDS: fentaNYL 50 mcg/mL INJ 2mL IVP (23:03)
--- NOTE | 2019-10-07 23:35 | PC.NURSE ---
Sheath removed from right groin at 2312. Manual pressure held for 20 minutes. Patient tolerated well. No bleeding or hematoma noted. VSS. Dressing placed. Will monitor.
[2019-10-08] VITALS (43 sets, daily range): BP systolic 106–137; BP diastolic 69–99; PULSE 58–93; RESP 5–20; TEMP 36.6–37.2; O2SAT 89–99
--- NOTE | 2019-10-08 00:54 | PC.NURSE ---
2213 dressing removed and sheath pulled after femoral pulse found and palpated. Pressure applied for 20 minutes with hemostasis obtained site soft and warm with pulses palpable and present. Patient voicing no pain and no bruising or complications noted at this time'
[2019-10-08] MEDS: ALPRAZolam 0.25 mg Tablet PO (02:30)
[2019-10-08] MEDS: nitroglycerin 1 gm/inch oint Pkt 1 INCH TOPICAL (03:01)
[2019-10-08] MEDS: temazepam 15 mg Capsule PO (03:02)
[2019-10-08 04:22] LABS: Basophils % 0.3 %; Eosinophils % 0.1 %; Hematocrit 45.4 % (42.0-52.0); Hemoglobin 15.2 g/dL (11.7-16.6); Lymphocytes # 2.4 10^3/uL (0.8-4.8); Lymphocytes % 18.8 %; Mean Corpuscular HGB Conc 33.5 g/dL (30.0-36.0); Mean Corpuscular Hemoglobin 30.6 pg (28.0-34.0); Mean Corpuscular Volume 91.3 fL (80-94); Mean Platelet Volume 11.7 fL (7.4-10.4); Monocytes % 7.6 %; Neutrophils # 9.35 10^3/uL (1.8-7.7); Nucleated Red Blood Cells % 0 %; Platelet Count 166 10^3/cmm (130-400); Red Blood Count 4.97 10^6/uL (4.1-5.3); Red Cell Distribution Width 13.6 % (12.1-15.1); White Blood Count 12.8 10^3/uL (4.0-10.0)
[2019-10-08 04:41] LABS: Alanine Aminotransferase 33 U/L (0-41); Albumin Level 3.8 g/dL (3.5-5.2); Alkaline Phosphatase 112 IU/L (40-130); Anion Gap 14.6 (5-19); Aspartate Amino Transferase 153 U/L (0-40); Blood Urea Nitrogen 9 mg/dL (8-23); Calcium 8.8 mg/dL (8.5-10.5); Carbon Dioxide 20 mmol/L (22-29); Chloride 107 mmol/L (98-107); Globulin 2.7 g/dL (1.3-4.6); Glomerular Filtration Rate 83.7 mL/min (90-130); Glucose 124 mg/dL (65-115); Osmolality Calculated 283 mOsm/kg (285-295); Potassium 3.6 mmol/L (3.5-5.1); Sodium 138 mmol/L (136-145); Total Protein 6.5 g/dL (6.6-8.7)
[2019-10-08] MEDS: aspirin 81 mg EC Tablet PO (09:06)
[2019-10-08] MEDS: clopidogrel 75 mg Tablet PO (09:06)
[2019-10-08] MEDS: atorvastatin 40 mg Tablet 20 MG PO (09:06)
[2019-10-08] MEDS: metoprolol tartrate 25 mg Tablet 12.5 MG PO (09:06)
[2019-10-08] MEDS: lisinopril 10 mg Tablet PO (09:06)
--- NOTE | 2019-10-08 09:26 | PC.NURSE ---
patient continues to unplug monitor after education on telemetry monitoring patient has been reconnected several times this shift by staff.
--- NOTE | 2019-10-08 09:43 | PM.PN ---
Subjective Subjective: Interval history: Patient is feeling okay. No chest pain or shortness of breath. Vitals are stable. No fever. No other specific complaints. Medications: Reviewed: Yes Medication Review Details: Current Medications Acetaminophen (Tylenol) 650 mg PO Q6H PRN PRN Reason: MILD PAIN Al Hydrox/Mg Hydrox/Simethicone (Maalox) 30 ml PO Q15M PRN PRN Reason: INDIGESTION Alprazolam (Xanax) 0.25 mg PO TID PRN PRN Reason: ANXIETY Last Admin: 10/08/19 02:30 Dose: 0.25 mg Documented by: Aspirin (Aspirin Ec) 81 mg PO DAILY [facility] Last Admin: 10/08/19 09:06 Dose: 81 mg Documented by: Atorvastatin Calcium (Lipitor) 20 mg PO DAILY [facility] Last Admin: 10/08/19 09:06 Dose: 20 mg Documented by: Atropine Sulfate (Atropine) 0.5 mg IVP PRN PRN PRN Reason: Symptomatic bradycardia Clopidogrel Bisulfate (Plavix) 75 mg PO DAILY [facility] Last Admin: 10/08/19 09:06 Dose: 75 mg Documented by: Fentanyl (Sublimaze) 50 mcg IVP PRN PRN PRN Reason: PAIN Last Admin: 10/07/19 23:03 Dose: 50 mcg Documented by: Heparin Sodium/Sodium Chloride (Heparin Drip) 25,000 unit in 500 mls @ 21.783 mls/hr IV .[id number] [facility] Last Infusion: 10/07/19 19:14 Dose: 0 unit/kg/hr, 0 mls/hr Documented by: Sodium Chloride (Sodium Chloride 0.9%) 1,000 mls @ 50 mls/hr IV .Q20H ONE Stop: 10/08/19 11:48 Last Admin: 10/07/19 17:28 Dose: Not Given Documented by: Sodium Chloride (Sodium Chloride 0.9%) 1,000 mls @ 75 mls/hr IV .[id number] [facility] Last Admin: 10/07/19 20:28 Dose: 75 mls/hr Documented by: Lisinopril (Prinivil) 10 mg PO DAILY [facility] Last Admin: 10/08/19 09:06 Dose: 10 mg Documented by: Magnesium Hydroxide (Milk Of Magnesia) 30 ml PO DAILY PRN PRN Reason: CONSTIPATION Metoprolol Tartrate (Lopressor) 12.5 mg PO BID [facility] Last Admin: 10/08/19 09:06 Dose: 12.5 mg Documented by: Naloxone HCl (Narcan) 0.1 mg IVP Q2M PRN PRN Reason: RESPIRATORY RATE < 8/MIN Nitroglycerin (Nitrostat) 0.4 mg SUBLINGUAL Q5M PRN PRN Reason: CHEST PAIN Nitroglycerin (Nitro-Bid) 1 inch TOPICAL Q6H JOI Last Admin: 10/08/19 09:07 Dose: Not Given Documented by: Ondansetron HCl (Zofran) 4 mg IVP Q6H PRN PRN Reason: NAUSEA AND VOMITING Last Admin: 10/07/19 20:14 Dose: 4 mg Documented by: Temazepam (Restoril) 15 mg PO BEDTIME PRN PRN Reason: INSOMNIA Last Admin: 10/08/19 03:02 Dose: 15 mg Documented by: Vitals/I&O/Wt Last Vital Signs Temp 99 F 10/08/19 07:37 Pulse 64 10/08/19 07:37 Resp 20 H 10/08/19 07:37 BP 122/83 10/08/19 07:37 Pulse Ox 94 10/08/19 07:37 10/07/19 10/08/19 10/08/19 22:59 06:59 14:59 Intake Total 724.583 / 724.583 200 / 924.583 Output Total 725 / 1275 450 / 1725 Balance -0.417 / -550.417 -250 / -800.417 Weight last 48 hrs Weight 200 lb 1.6 oz Weight 190 lb Physical Exam Narrative: EXAM NARRATIVE: GENERAL: The patient is alert and oriented times three. Not in any acute distress. HEENT: No significant pallor, icterus or lymphadenopathy.Oral cavity: There are no mucous membrane lesions. NECK: Trachea appears to be central. No masses noted. No JVD or thyromegaly appreciated. RESPIRATORY: Chest is symmetrical. No intercostals muscle retraction or any accessory muscle activation. There is no chest wall tenderness. Breath sounds are heard bilaterally. No rales or rhonchi heard. No evidence of any consolidation. BREASTS: Deferred. HEART: The heart sounds are normal. No S3 or S4. No significant murmurs. No pericardial rub ABDOMEN: No vessel pulsations or distention. No tenderness. No organomegaly appreciated. Bowel sounds are normally heard. : Deferred. RECTAL: Deferred. LYMPHATIC: No lymphadenopathy noted in the neck or groin. EXTREMITIES: The right groin has no hematoma or bleeding. Good distal pulses. MUSCULOSKELETAL: No acute joint deformities or swelling SKIN: There are no significant rashes or ecchymosis NEUROPSYCHIATRIC: The patient is alert and oriented x3. Appears to be in a good mood. No tremors or rigidity noted. Const: COMMON NORMALS: alert Resp: COMMON NORMALS: clear to auscultation bilaterally AUSCULTATION: clear to auscultation bilaterally Neuro: SENSORIUM/ORIENTATION: Yes alert Data : 10/08/19 03:28 10/08/19 03:28 A&P Assessment and plan (1) Atherosclerotic heart disease of [place] coronary artery with unstable angina pectoris: Patient status post PCI of the distal RCA/high OM branch. Currently seems to be stable. No recurrence of chest pain. Status: Acute Qualifiers: [place] vs. transplanted heart: [place] heart Qualified Code(s): I25.110 - Atherosclerotic heart disease of [place] coronary artery with unstable angina pectoris (2) Non-ST elevation DC (NSTEMI): As mentioned above. The Lovenox is discontinued. Continue the Plavix, aspirin, statin and other current medications. Status: Acute (3) PVCs (premature ventricular contractions): Patient apparently has a history of ventricular arrhythmia. Currently seems to have isolated PVCs on the monitor. May continue on the current medications. Status: Acute (4) Hypokalemia: The needs to be supplemented. The repeat potassium this morning is within normal limits. Status: Acute (5) Neutrophilic leukocytosis: Etiology? Status: Acute Additional A&P Information The patient seems to be doing okay at this time. If he continues to remain stable, may be discharged home from a cardiac standpoint. Please make an appointment to be seen at [facility] by the nurse practitioner on of this week. Appointment with me in the office in 1 month He may be kept on the current dose of Plavix, aspirin and beta-kyra. I would increase the dose of the Lipitor to 40 mg p.o. daily Attestations Medical Necessity Statement*: Possible discharge home today Coding Level of Care Code Acute Heel Lining Paster for Taylor Rocha Diagnoses Atherosclerotic heart disease of [place] coronary artery with unstable angina pectoris I25.110 [place] vs. transplanted heart: [place] heart Non-ST elevation DC (NSTEMI) I21.4 PVCs (premature ventricular contractions) I49.3 Hypokalemia E87.6 Neutrophilic leukocytosis D72.9
--- NOTE | 2019-10-08 11:04 | PC.RESP ---
PATIENT DOES NOT HAVE A QUALIFYING HX OF LUNG DISEASE AND DOES NOT QUALIFY FOR PULMONARY REHAB AT THIS TIME.
--- NOTE | 2019-10-08 11:26 | PM.DCS ---
Discharge Providers Date of Admission: 10/07/19 04:33 Date of Discharge: October 08, 2019 Attending Provider at Admission: Sailaja Beasley MD Attending Provider at Discharge: Duane Garcia MD Consults: Cardiology: Dr. Wiley Primary Care Provider: Myriam Cabrera MD Diagnoses at Discharge Discharge Diagnosis (1) Atherosclerotic heart disease of [place] coronary artery with unstable angina pectoris: Status: Acute Qualifiers: [place] vs. transplanted heart: [place] heart Qualified Code(s): I25.110 - Atherosclerotic heart disease of [place] coronary artery with unstable angina pectoris (2) Non-ST elevation LA (NSTEMI): Status: Acute (3) PVCs (premature ventricular contractions): Status: Acute (4) Hypokalemia: Status: Acute (5) Neutrophilic leukocytosis: Status: Acute Reason for Visit Reason for Visit: chest pain Hospital Course Discharge Summary: Jean Carlos Chavez is a 68 year old male who carries history of established coronary disease with stent placement 6 years ago in [place], [place] came in with chief complaint of chest pain. Patient is stating that his chest pain started after sexual intercourse today, it lasted about an hour until he arrived in the ER and resolved spontaneously, he did not experience shortness of breath, orthopnea, PND, fever, diaphoresis, lightheadedness or radiation of pain towards his back. He is stating that this chest pain is not similar to the one when he had stent placed, he would describes this chest discomfort as achy without pressure sensation. He did not take any performance-enhancing medications, he did use marijuana this morning. Diagnosis in the ER revealed normal hemodynamics, blood pressure at the time of my evaluation was 160/94mmhg, he was chest pain-free, EKG showing multiple PVCs with flat T waves otherwise no ischemic or infarctive changes, troponin 50, polycythemia, leukocytosis, hypokalemia, BNP 1136. Patient was seen by cardiology and he underwent cardiac angiogram and PCI of distal RCA/high OM branch on October 07, 2019. He tolerated the procedure well and his hospitalization was unremarkable. Patient remained chest pain-free. He is been discharged on aspirin, Plavix, statin, low-dose beta-kyra and lisinopril with advised to follow-up with cardiology in 4 to 7 days with blood pressure chart for further optimization of medications. Physical Exam Narrative: EXAM NARRATIVE: Very healthy elderly male Well-built male Chest pain-free S1, S2 no tachycardia or heart failure signs clinically Abdomen soft nontender bowel sounds present Lungs are clear to auscultation Appropriate mood and affect GCS 15 awake alert orientedx3 Lower extremity no edema gangrene or ulcer No active respiratory distress Discharge Data Data Completed and Pending: Completed Studies During Hospitalization Category Date Time Status XR chest 1V russ ble [id number] Stat Exams 10/07/19 02:52 Completed CV echo complete* [id number] Routine Ultrasound 10/07/19 05:52 Completed Pending at discharge Category Date Time Status 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 Routin e Exams 10/07/19 15:44 Taken Aldosterone Routi ne Lab 10/07/19 05:42 Received RENIN [Plasma Antonio in Activity LC/MS/ MS] Routine Lab 10/07/19 05:42 Received Labs from last 24 hours 10/08/19 10/08/19 10/07/19 03:28 03:28 22:26 WBC 12.8 H RBC 4.97 Hgb 15.2 Hct 45.4 MCV 91.3 MCH 30.6 MCHC 33.5 RDW 13.6 Plt Count 166 MPV 11.7 H Neut % (Auto) 73.0 Lymph % (Auto) 18.8 [place] % (Auto) 7.6 Eos % (Auto) 0.1 Baso % (Auto) 0.3 Neut # (Auto) 9.35 H Lymph # (Auto) 2.4 [place] # (Auto) 1.0 H Eos # (Auto) 0.0 Baso # (Auto) 0.0 Nucleated RBC % (a uto) 0 Nucleated RBCs # 0.0 APTT 40.7 H Sodium 138 Potassium 3.6 Chloride 107 Carbon Dioxide 20 L Anion Gap 14.6 BUN 9 Creatinine 0.9 GFR Calculation 83.7 L Glucose 124 H Calculated Osmolal ity 283 L Calcium 8.8 Total Bilirubin 2.0 H AST 153 H ALT 33 Alkaline Phosphata se 112 Troponin T Gen 5 n g/L Troponin T Hi Sens 6Hr Troponin T Hi Sens 6Hr Delta Total Protein 6.5 L Albumin 3.8 Globulin 2.7 Triglycerides Cholesterol LDL Cholesterol, C alc HDL Cholesterol LDL/HDL Ratio Cholesterol/HDL Ra giovanni 10/07/19 10/07/19 10/07/19 21:03 18:53 17:35 WBC RBC Hgb Hct MCV MCH MCHC RDW Plt Count MPV Neut % (Auto) Lymph % (Auto) [place] % (Auto) Eos % (Auto) Baso % (Auto) Neut # (Auto) Lymph # (Auto) [place] # (Auto) Eos # (Auto) Baso # (Auto) Nucleated RBC % (a uto) Nucleated RBCs # APTT 61.0 H D 200.0 H* > 250.0 H* Sodium Potassium Chloride Carbon Dioxide Anion Gap BUN Creatinine GFR Calculation Glucose Calculated Osmolal ity Calcium Total Bilirubin AST ALT Alkaline Phosphata se Troponin T Gen 5 n g/L Troponin T Hi Sens 6Hr Troponin T Hi Sens 6Hr Delta Total Protein Albumin Globulin Triglycerides Cholesterol LDL Cholesterol, C alc HDL Cholesterol LDL/HDL Ratio Cholesterol/HDL Ra giovanni 10/07/19 10/07/19 10/07/19 14:39 13:35 13:35 WBC RBC Hgb Hct MCV MCH MCHC RDW Plt Count MPV Neut % (Auto) Lymph % (Auto) [place] % (Auto) Eos % (Auto) Baso % (Auto) Neut # (Auto) Lymph # (Auto) [place] # (Auto) Eos # (Auto) Baso # (Auto) Nucleated RBC % (a uto) Nucleated RBCs # APTT Sodium 137 Potassium 3.5 Chloride 103 Carbon Dioxide 22 Anion Gap 15.5 BUN 11 Creatinine 1.1 GFR Calculation 66.4 L Glucose 127 H Calculated Osmolal ity 282 L Calcium 9.7 Total Bilirubin AST ALT Alkaline Phosphata se Troponin T Gen 5 n g/L 788 H* Troponin T Hi Sens 6Hr Cancelled Troponin T Hi Sens 6Hr Delta Cancelled Total Protein Albumin Globulin Triglycerides 83 Cholesterol 165 LDL Cholesterol, C alc 112 HDL Cholesterol 36 L LDL/HDL Ratio 3.11 Cholesterol/HDL Ra giovanni 4.58 10/07/19 13:35 WBC 15.3 H RBC 5.26 Hgb 16.2 Hct 49.3 MCV 93.7 MCH 30.8 MCHC 32.9 RDW 13.2 Plt Count 182 MPV 11.6 H Neut % (Auto) 80.1 Lymph % (Auto) 14.0 [place] % (Auto) 5.4 Eos % (Auto) 0.1 Baso % (Auto) 0.1 Neut # (Auto) 12.24 H Lymph # (Auto) 2.1 [place] # (Auto) 0.8 Eos # (Auto) 0.0 Baso # (Auto) 0.0 Nucleated RBC % (a uto) 0 Nucleated RBCs # 0.0 APTT Sodium Potassium Chloride Carbon Dioxide Anion Gap BUN Creatinine GFR Calculation Glucose Calculated Osmolal ity Calcium Total Bilirubin AST ALT Alkaline Phosphata se Troponin T Gen 5 n g/L Troponin T Hi Sens 6Hr Troponin T Hi Sens 6Hr Delta Total Protein Albumin Globulin Triglycerides Cholesterol LDL Cholesterol, C alc HDL Cholesterol LDL/HDL Ratio Cholesterol/HDL Ra giovanni Vitals: Last Vital Signs Temp 99 F 10/08/19 07:37 Pulse 64 10/08/19 07:37 Resp 20 H 10/08/19 07:37 BP 122/83 10/08/19 07:37 Pulse Ox 94 10/08/19 07:37 Discharge Plan Discharge Patient Disposition: Home Condition: Stable Prescriptions: New atorvastatin 40 mg Tablet 40 mg PO DAILY Qty: 30 RF: 0 clopidogrel 75 mg Tablet 75 mg PO DAILY Qty: 30 RF: 0 lisinopril 10 mg Tablet 10 mg PO DAILY Qty: 30 RF: 0 nitroglycerin 0.4 mg Tablet, Sublingual 0.4 mg sublingual Q5M PRN (Reason: Chest Pain) Qty: 30 RF: 0 Continued metoprolol tartrate 50 mg Tablet 25 mg PO BID RF: 0 Aspirin Low Dose 81 mg Tablet,Delayed Release (Dr/Ec) 81 mg PO DAILY RF: 0 Discharge Orders: Discharge Order (Routine); Ordered 10/08/19 Ordered By: Duane Garcia Referrals: Angel Wiley MD [Physician] - 1 month (You have a cardiology follow up with Dr. Wiley at [facility] on November 14 at 9:45am ) Yandy Renner DO [Physician] - 4-7 days (You have an Appointment with Dr. Zarate at [facility] on October 11 at 1:45pm.) Ligia Dodd FNP [Nurse Practitioner] - 4-7 days (You have a post procedure followup ) Discharge Diet: Cardiac Discharge Activity: Resume usual activity Patient Instructions: Lisinopril (By mouth), Nitroglycerin, Rapid Release (By mouth), Atorvastatin (By mouth), Clopidogrel (By mouth), Angina (DC), Left Heart Catheterization (DC), Chest Pain Stoplight, Post Angiogram Home Care Instructions Activity Restrictions/Additional Instructions: Please check your blood pressure every day and maintain a blood pressure diary which you can follow-up with cardiology follow-up for further adjustment of your medications. Please follow-up with your primary care provider and cardiology on the set appointments. Discharge Date/Time: 10/08/19 12:45 Discharge Attestations Time Spent in Discharge Care*: greater than 30 min Specific Discharge Activities: Specific discharge activities: educating patient, educating and/or supporting family/caregiver, discussing with pcp/other providers, discussing with case management specialist/social workers/dc planners, documenting/other paperwork and evaluating patient/reviewing data Status at Discharge: Cognitive status at discharge: cognitively intact, Behavioral status at discharge: cooperative, Functional status at discharge: independent ambulation Overall status at discharge: patient is back to baseline Quality Metrics Clinical Quality Measures During this hospital stay, did patient experience: AMI Clinical Trial Participant: No Contraindication to aspirin (AMI): Aspirin given Contraindication to statin: Statin prescribed Contraindication to PCI: PCI performed Contraindication to Fibrinolytics: Fibrinolytics given Coding Level of Care Code Acute Making Line Worker for Taylor Fwd Diagnoses Atherosclerotic heart disease of [place] coronary artery with unstable angina pectoris I25.110 [place] vs. transplanted heart: [place] heart Non-ST elevation LA (NSTEMI) I21.4 PVCs (premature ventricular contractions) I49.3 Hypokalemia E87.6 Neutrophilic leukocytosis D72.9
[2019-10-11 14:16] LABS: Plasma Renin Activity LC/MS/MS 2.32 ng/mL/h (0.25-5.82)
== END 2019-10-08 12:45 | disposition home or self-care (01) ==
LOC: ER 04:34 → CSU 05:41
PROVIDERS: Internal Medicine; Internal Medicine Cardiovascular Disease; Admitting Provider Internal Medicine; Emergency Provider Emergency Medicine; PCP Hospitalist; Visit Provider Student in an Organized Health Care Education/Training Program
DX: I21.4 Non-ST elevation (NSTEMI) myocardial infarction (principal); I25.110 Atherosclerotic heart disease of native coronary artery with unstable angina pectoris; I49.3 Ventricular premature depolarization; I16.0 Hypertensive urgency; E87.6 Hypokalemia; D72.9 Disorder of white blood cells, unspecified; F12.10 Cannabis abuse, uncomplicated; Z79.82 Long term (current) use of aspirin; Z88.5 Allergy status to narcotic agent; Z95.5 Presence of coronary angioplasty implant and graft
CPT/HCPCS: 12345; 36415; 71045; 80048; 80053; 80061; 80306; 82088; 82550; 83735; 83880; 84244; 84443; 84484; 85025; 85347; 85378; 85730; 93005; 93306; 93452; 96365; 96366; 96372; 96375; 99284; 99285; C1725; C1769; C1874; C1887; C1894; C9600; G0378; J1644; J1650; J2250; J2405; J3010; J3490; J7030; Q0163; Q9967

== ENCOUNTER → 2019-11-01 10:41 | Outpatient (BNVA) | payer MEDICARE, SELFPAY | PROVIDERS: PCP Hospitalist; Visit Provider Internal Medicine Cardiovascular Disease | DX: Z79.01 Long term (current) use of anticoagulants (principal); E87.6 Hypokalemia; R06.02 Shortness of breath; E78.5 Hyperlipidemia, unspecified | CPT/HCPCS: 80048; 85025 ==

== ENCOUNTER → 2020-04-30 14:06 | Outpatient (BNVA) | payer MEDICARE, SELFPAY | PROVIDERS: PCP Hospitalist; Visit Provider Specialist | DX: K11.8 Other diseases of salivary glands (principal) | CPT/HCPCS: 99202; 99203 ==

== ENCOUNTER → 2020-07-23 16:15 | Outpatient (BNVA) | payer MEDICARE, SELFPAY | PROVIDERS: PCP Hospitalist; Visit Provider Internal Medicine | DX: E78.5 Hyperlipidemia, unspecified (principal); I25.110 Atherosclerotic heart disease of native coronary artery with unstable angina pectoris | CPT/HCPCS: 80061 ==

== ENCOUNTER → 2021-07-29 13:40 | Outpatient (BNVA) | payer MEDICARE, SELFPAY | PROVIDERS: PCP Hospitalist; Visit Provider Internal Medicine | DX: I25.110 Atherosclerotic heart disease of native coronary artery with unstable angina pectoris (principal); I49.3 Ventricular premature depolarization; I10 Essential (primary) hypertension; E78.5 Hyperlipidemia, unspecified; Z87.891 Personal history of nicotine dependence | CPT/HCPCS: 99214 ==

== ENCOUNTER → 2022-02-11 13:33 | Outpatient (BNVA) | payer MEDICARE, SELFPAY | PROVIDERS: PCP Hospitalist; Visit Provider Internal Medicine Cardiovascular Disease | DX: I25.110 Atherosclerotic heart disease of native coronary artery with unstable angina pectoris (principal); E78.5 Hyperlipidemia, unspecified; I10 Essential (primary) hypertension; I25.2 Old myocardial infarction; Z87.891 Personal history of nicotine dependence | CPT/HCPCS: 99213 ==

== ENCOUNTER → 2022-03-16 12:00 | Outpatient (BNVA) | payer MEDICARE, SELFPAY | PROVIDERS: PCP Family Medicine Adult Medicine; Visit Provider Family Medicine Adult Medicine | DX: I10 Essential (primary) hypertension (principal); E78.5 Hyperlipidemia, unspecified; I25.110 Atherosclerotic heart disease of native coronary artery with unstable angina pectoris | CPT/HCPCS: 80053; 80061; 83036; 84443; 85025 ==

== ENCOUNTER → 2022-04-26 15:12 | Outpatient (BNVA) | payer MEDICARE, SELFPAY | PROVIDERS: PCP Family Medicine Adult Medicine; Visit Provider Nurse Practitioner Family | DX: I25.10 Atherosclerotic heart disease of native coronary artery without angina pectoris (principal); I10 Essential (primary) hypertension; I49.3 Ventricular premature depolarization; Z87.891 Personal history of nicotine dependence; Z79.82 Long term (current) use of aspirin | CPT/HCPCS: 93005; 99214 ==

== ENCOUNTER → 2022-07-02 10:38 | Outpatient (BNVA) | payer MEDICARE, SELFPAY | PROVIDERS: PCP Family Medicine Adult Medicine; Visit Provider Internal Medicine | DX: I25.110 Atherosclerotic heart disease of native coronary artery with unstable angina pectoris (principal); I49.3 Ventricular premature depolarization; I10 Essential (primary) hypertension; E78.5 Hyperlipidemia, unspecified; I47.29 Other ventricular tachycardia; Z87.891 Personal history of nicotine dependence | CPT/HCPCS: 99214 ==

== ENCOUNTER 2022-07-22 08:06 | Outpatient (CLI) | payer MEDICARE, SELFPAY ==
--- NOTE | 2022-07-22 | ECG_ITS ---
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 Interpretive Statements NAME OF STUDY: EXERCISE SESTAMIBI STRESS TEST INDICATION: [New onset SVT, ] EXERCISE DATA: The patient was exercised by Jean Carlos protocol. Baseline heart rate was 97 beats per minute. Baseline blood pressure was 146/98 millimeters of mercury. Target heart rate was 126 beats per minute. Maximum heart rate achieved was 134, which was 106% of the target heart rate. Maximum blood pressure was 180/95 millimeters of mercury. Total exercise time was 6 minutes. Maximum METs achieved was 7. The reason for ending the test was maximal effort achieved. The patient complained of shortness of breath during the stress test, which then resolved at the end of the test. ELECTROCARDIOGRAM: BASELINE: Showed sinus rhythm, normal axis, no significant ST-T changes at the baseline noted. [] EXERCISE: At the peak exercise level, [] No significant ST-T changes suggestive of ischemia noted. [] RECOVERY: During the recovery period, heart rate dropped appropriately. No significant ST-T changes in the recovery suggestive of ischemia noted. [] CONCLUSION: 1. Exercise capacity is fair. 2. Heart rate response was appropriate 3. Blood pressure response was appropriate 4. Symptoms not suggestive of ischemia. 5. Electrocardiogram portion of the stress test was not suggestive of ischemia. 6. Nuclear scan will be documented separately. Electronically Signed On 07-30-2022 15:49:18 CDT by Galileo Son M.D. [email or web address]
[2022-07-22 08:12] VITALS: BMI 22.5
--- NOTE | 2022-07-22 08:26 | NMCV_ITS ---
NM tequila perf SPECT r/s* [id number] Jean Carlos Chavez Age: 71 Gender: M : 1950 Exam Date: 07/22/2022 08:26 Ordering Phys: Galileo Son M.D ([email or web address]) Technologist: BARB Golden Exam Location: [facility] Indications: ATHEROSCLEROTIC HEART DISEASE STRESS TEST Please see separate stress test report in [facility] for full findings IMAGE PROTOCOL Rest/Stress 1 Exercise Day Radiopharmaceutical Dose (mCi) Administration Site Administered by Rest: Tc-99m 10.2 IV BARB Louie Sestamibi Stress:Tc-99m 32.8 IV BARB Louie Sestamibi Rest: 22-Jul-2022 60 Discovery 630 Stress: 22-Jul-2022 30 Discovery 630 0.4mg Lexiscan. Images obtained in supine and prone position. SPECT RESULTS Technical Quality: Excellent Raw Data Analysis: Normal Image Corrections: No attenuation or motion correction applied Summed Stress Score: 21 Summed Rest Score: 15 Summed Difference Score: 6 PERFUSION FINDINGS Large in size, mostly fixed perfusion defect is noted in apical, apical inferior, inferior and inferolateral snyder. This is consistent with large sized areas of infarct in the RCA and left circumflex artery territory with minimal tom-infarct ischemia. Small in size, mostly reversible perfusion defect in the apical wall. This is consistent with small area of ischemia in LAD territory. FUNCTIONAL RESULTS (calculated via Gated SPECT) Stress Image LV EF (%): 42 Stress EDV (mL):228 TID: 0.98 Stress ESV (mL):132 FUNCTIONAL FINDINGS: LV systolic function is mild to moderately reduced with EF of 42%. Mild to moderate global hypokinesis seen. IMPRESSIONS 1. Abnormal myocardial perfusion imaging with large areas of prior infarct seen in RCA and left circumflex artery territories with minimal tom-infarct ischemia. 2. Small sized area of ischemia in LAD territory. 3. LV systolic function is mild to moderately reduced with EF of 42%. Galileo Son MD (Electronically Signed) Final Date: 22 July 2022 13:04 S
[2022-07-22 10:04] VITALS: BP 149/96; PULSE 92
== END 2022-07-22 08:07 | disposition home or self-care (01) ==
PROVIDERS: PCP Family Medicine Adult Medicine; Visit Provider Internal Medicine
DX: I47.1 Supraventricular tachycardia (principal); I25.10 Atherosclerotic heart disease of native coronary artery without angina pectoris; I99.8 Other disorder of circulatory system
CPT/HCPCS: 36415; 78452; 93017; A9500

== ENCOUNTER → 2022-07-26 14:03 | Outpatient (BNVA) | payer MEDICARE, SELFPAY | PROVIDERS: PCP Family Medicine Adult Medicine; Visit Provider Nurse Practitioner Family | DX: I25.10 Atherosclerotic heart disease of native coronary artery without angina pectoris (principal); I10 Essential (primary) hypertension; I47.29 Other ventricular tachycardia; Z87.891 Personal history of nicotine dependence | CPT/HCPCS: 99214 ==

== ENCOUNTER 2022-08-05 13:45 | Outpatient (CLI) | payer MEDICARE, SELFPAY ==
[2022-08-05 14:54] LABS: Basophils % 0.4 %; Eosinophils # 0.1 10^3/uL (0.0-0.8); Eosinophils % 0.8 %; Hematocrit 43.3 % (42.0-52.0); Hemoglobin 14.4 g/dL (11.7-16.6); Lymphocytes # 2.5 10^3/uL (0.8-4.8); Lymphocytes % 29.4 %; Mean Corpuscular HGB Conc 33.3 g/dL (30.0-36.0); Mean Corpuscular Hemoglobin 31.2 pg (28.0-34.0); Mean Corpuscular Volume 93.9 fl (80-94); Mean Platelet Volume 11.4 fL (7.4-10.4); Monocytes # 0.6 10^3/uL (0.2-0.9); Monocytes % 6.8 %; Neutrophils # 5.25 10^3/uL (1.8-7.7); Neutrophils % 62.4 %; Nucleated Red Blood Cells % 0 %; Platelet Count 156 10^3/cmm (130-400); Red Blood Count 4.61 10^6/uL (4.1-5.3); White Blood Count 8.4 10^3/uL (4.0-10.0)
[2022-08-05 15:12] LABS: INR 1.08 (0.83-1.21); Prothrombin Time (Patient) 14.4 Seconds (12.0-15.1)
[2022-08-05 15:18] LABS: Anion Gap 13.6 (5-19); Blood Urea Nitrogen 18 mg/dL (8-23); Carbon Dioxide 24 mmol/L (22-29); Chloride 105 mmol/L (98-107); Glucose 107 mg/dL (65-115); Osmolality Calculated 288 mOsm/kg (285-295); Potassium 4.6 mmol/L (3.5-5.1); Sodium 138 mmol/L (136-145)
== END 2022-08-05 13:46 | disposition home or self-care (01) ==
PROVIDERS: PCP Family Medicine Adult Medicine; Visit Provider Nurse Practitioner Family
DX: I25.10 Atherosclerotic heart disease of native coronary artery without angina pectoris (principal)
CPT/HCPCS: 36415; 80048; 85025; 85610

== ENCOUNTER 2022-08-09 05:52 | Outpatient (CLI) | payer MEDICARE, SELFPAY ==
[2022-08-06 08:19] VITALS: BMI 22.5
[2022-08-09] VITALS (14 sets, daily range): BP systolic 128–149; BP diastolic 80–99; PULSE 60–104; RESP 13–16; TEMP 36.6–36.9; O2SAT 93–99
--- NOTE | 2022-08-09 06:00 | XACV_ITS ---
Exam Room: 2 Ht: 185 cm Wt: 78 kg BSA: 2.00 m2 Gender: Male : 1950 Any Known Allergies: Other Exam Priority: Routine Procedure(s): Procedure Description: Diagnostic procedure Procedure Description: PCI procedure Procedure Description: Left Heart Catheterization Procedure Description: Drug Eluting Coronary Stent Procedure Description: PTCA Procedure Description: Miscellaneous Procedure Description: ACT Procedure Description: Coronary Angiography Procedure Description: Pressure Wire Diagnostic Cath Status: Elective Diagnostic Findings * INDICATION: Dyspnea on exertion/abnormal stress test. * Circumflex has mild luminal irregularities. * Right Coronary Artery has distal vessel prior stent with 20 to 30% in-stent restenosis.. * Left Main has no disease. * Proximal Left Anterior Descending: obstructive 60% stenosis, DONNY: 3 flow. * Coronary angiography shows right dominance. PCI Status: Elective PCI Indication: Other Interventional Findings * Procedure detail: We engaged left main artery with XB 3.5 guide catheter. IV heparin was administered to maintain anticoagulation. Normalization, IFR wire was advanced into distal vessel. iFR value of 0.8 was obtained. iFR pullback was performed that showed significant gradient across proximal LAD stent. We decided to perform PCI of proximal LAD given significant ischemic value of IFR. Run-through wire was used to cross the stenosis. We predilated the stenosis with 3.0 x 15 mm semicompliant balloon. This was followed by placement of 3.5 x 18 mm resolute [place] drug-eluting stent. At this time final angiogram was performed that showed excellent stent expansion, no residual stenosis and DONNY-3 flow. Guidewire and guide catheter were removed.. * Proximal Left Anterior Descendin% stenosis treated with a AB TREK 3.00X15 RX BALLOON, and MDT R JUSTIN 3.5X18 FOX. 0% residual stenosis, DONNY: 3 flow. Conclusions 1. Severe proximal LAD stenosis (confirmed with iFR value of 0.80) s/p successful revascularization with 1 stent. 2. Proximal Left Anterior Descending was treated with a Balloon, and Drug Eluting Stent. Recommendations * Dual antiplatelet therapy with aspirin and plavix for atleast 1 year. * High intensity statin therapy. * Outpatient cardiology follow up in 2-4 weeks. Interventional RX Recommendation: PCI w/o planned CABG Diagnostic RX Recommendation: PCI w/o planned CABG Anticoagulation: Heparin Pressures Phase:Rest AO : 134 / 55 ( 87 ) @ 8:56:00 AM 129 / 58 ( 89 ) @ 9:10:00 AM Clinical Evaluation EBL: 5mL-10mL Procedural Details Procedure Consent Obtained. Admit Source: Out Patient. Pre-Procedure Time Out. Identified patient by full name and date of as verbalized by the patient/guarantor. Does the consent match the physician's order: Yes. Accurate & Complete Informed Consent: Yes. Inpatient/Outpatient History & Physical on Chart: Yes. If H&P is completed, is and addenduem needed: No; If yes, is the addendum complete: N/A. Visualize and Verify Site with Patient/Guarantor: N/A. Relevant Radiology Images available: Yes. The risks, benefits, and alternatives of sedation and/or procedure were discussed by physician. The patient agrees to continue. Procedure started. [facility] Clinical Fraility Score: 3: Managing Well. Environmental Protection Specialist Indications: Worsening Angina. Chest Pain Symptom Assessment: Atypical. Correct patient, site and procedure confirmed by cath team. Current diagnosis: Chest Pain, Dyspnea on Exertion, Abnormal stress test. PERRLA. Strong, equal hand security operations center analyst bilaterally. Lungs clear x 5 lobes. IV Site on Arrival: 20 gauge in the left anticubital. IV Fluids: 0.9% NaCl at 75ml/hr. 0 mL infused prior to prestressed concrete laborer. Pre Procedural Pulses: bilateral posterior tibial was 1+. Pre Procedural Pulses: bilateral dorsalis pedis was 2+. Pre Procedural Pulses: bilateral radial was 3+. Oxygen started at 2liters/min via nasal canula. right radial was prepped with chloroprep then draped in the usual sterile fashion. right groin was prepped with chloroprep then draped in the usual sterile fashion. Physician notified. Baseline sample Acquired. HR: 90 BPM. Physician arrived. Physician scrubbed in. Immediate Pre-Procedure Time Out. Correct Patient: Yes; Correct Procedure: Yes; Correct Site: Yes; Correct Patient Position: Yes; Correct Supplies: Yes; Dried Flammable Prep: Yes; Blood Products Available: No;. Lidocaine 1% infiltrated to the right radial. Arterial access obtained. A 5 lebanese TIG catheter in over wire. Wire out. Hand injection through catheter. Glidewire advanced through catheter. Wire out. Hand injection through catheter. Glidewire in through catheter. Wire out. Multiple views taken of right coronary artery. Catheter redirected to the LCA. Multiple views taken of left coronary artery. Catheter removed over the exchange wire. 6 lebanese CLS 3.5 guide catheter was inserted over the wire. iFR pressure guidewire advanced through guide catheter to lesion in proximal LAD. iFR wire advanced across lesion, seated in distal LAD. iFR proximal LAD 0.80 mmHg. iFR pullback result of proximal LAD 0.84 mmHg. Runthrough guidewire was advanced through the guide catheter to lesion in the prox LAD. Guidewire advanced across lesion. iFR guidewire out. Balloon inserted to lesion in the prox LAD. Inflation number : 1 A AB TREK 3.00X15 RX BALLOON was prepped and advanced across the Prox LAD , then inflated to 12 LJ for 0:14 seconds. Balloon out. Results checked. Stent inserted to lesion in the prox LAD. Inflation Number : 2 A COLLIN [place] JUSTIN 3.5X18 FOX -Lot Number# [id number] EXP 12-05-2023 was prepped and advanced across the Prox LAD. The stent was deployed at 12 LJ for 0:21 seconds. Stent balloon out over wire. Results checked. Wire out. ACT drawn. Results out of range-high results seconds. Therapeutic limits - pre-heparin administration 90-150 seconds and monitoring heparin during a vascular procedure >250 seconds. Results checked. Guide catheter out over exchange wire. A TR Band was successful obtaining hemostatsis at the Right Radial artery insertion site. Post Procedure: Pulses reassessed and unchanged. PERRLA. Strong, equal hand security operations center analyst bilaterally. No VTE prophylaxis required. Medication's Wasted: Lidocaine 1% = 1 mL. Medication's Wasted: Nitro = 49.8 mg. Medication's Wasted: Other = Versed 1 mg. Medication's Wasted: Other = Fentanyl 25 mcg. Medication's Wasted: Heparin = 4000 unit. Total IV fluids: 50 mL. Post-op diagnosis: Severe proximal LAD stenosis. S/p PCI placement of 1 stent. Complications: None. Estimated blood loss: 5mL-10mL. Responsiveness - Normal response to verbal stimuli; alert and oriented, PERRLA. Airway - Unaffected, no intervention required; spontaneous ventilation. Circulation: W/N/L, pulses unchanged. Nausea/Vomiting: N/A. Procedure completed. Patient transferred by wheelchair to CPRU. Vital chart was stopped. Access Site Site: Right Radial artery Sheath Size: 6 Fr Hemostasis Method: TR Band Hemostasis Success: Successful Procedure Medications Start: 7:46 AM Stop: 7:46 AM Medication: Versed Amount: 1 mg Route: I.V. Start: 7:46 AM Stop: 7:46 AM Medication: Fentanyl Amount: 50 mcg Route: I.V. Start: 7:50 AM Stop: 7:50 AM Medication: Nitrogylcerin Amount: 200 mcg Route: I.A. Start: 7:51 AM Stop: 7:51 AM Medication: Versed Amount: 1 mg Route: I.V. Start: 7:55 AM Stop: 7:55 AM Medication: Heparin Amount: 5000 units Route: I.V. Start: 8:02 AM Stop: 8:02 AM Medication: Heparin Amount: 1000 units Route: I.V. Start: 8:05 AM Stop: 8:05 AM Medication: Versed Amount: 1 mg Route: I.V. Start: 8:05 AM Stop: 8:05 AM Medication: Fentanyl Amount: 25 mcg Route: I.V. Start: 8:13 AM Stop: 8:13 AM Medication: Heparin Amount: 1000 units Route: I.V. Start: 8:22 AM Stop: 8:22 AM Medication: Plavix Amount: 600 mg Route: P.O. I, the attending physician, have reviewed and verified all procedure medications. Yes, all medications given per verbal order History/Risk Factors Hypertension: Yes Dyslipidemia: Yes Peripheral Arterial Disease (PAD): No Myocardial Infarction (NM): Yes Obesity: No Renal Disease: No Tobacco Use: Former Prior Interventions PCI: Yes CABG: No Valve Surgery: No Date of PCI: 10/07/2019 Report Signatures Finalized by Galileo Son MD on 08/13/2022 02:51 PM
[2022-08-09] MEDS: diphenhydrAMINE 50 mg Capsule PO (06:37)
[2022-08-09] MEDS: aspirin 325 mg Tablet PO (06:37)
--- NOTE | 2022-08-09 07:46 | P.HPUD_ITS ---
Surgery/Procedure H&P Update DATE OF PROCEDURE: August 09, 2022 DATE H&P PERFORMED: 07/26/22 H&P UPDATE INFORMATION: I have reviewed H&P completed within last 30 days, I have examined patient prior to procedure and No changes to prior documentation PREOP DIAGNOSIS: Dyspnea on exertion/abnormal stress test PRIMARY INDICATION FOR PROCEDURE: Dyspnea on exertion/abnormal stress test PLANNED PROCEDURE: Operation Date: 08/09/22 07:00 Proposed Procedures p [facility] [address], I47.29, I25.10, U21.4(Left) - Galileo Son M.D Possible percataneous coronary intervention PATIENT REASSESSED PRIOR TO SEDATION, WITH NO CHANGE NOTED: Yes PHYSICAL EXAM: alert, oriented x 3, clear to auscultation bilaterally and regular rate & rhythm AIRWAY EVAL/ANESTHESIA PLAN: normal airway, ASA III, Local Anesthesia, Risks, benefits & alternatives of sedation and/or procedure discussed and Patient agrees to continue as planned ADDITIONAL INFORMATION: Moderate sedation
--- NOTE | 2022-08-09 08:40 | SUR.PHASEI ---
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 Status post cardiac catheterization via the right radial approach. TR band in place; site is hemostatic. Vitals are stable. Assessments per flowsheet. Call light in reach. Informed to call for needs.
[2022-08-09] MEDS: sodium chloride 0.9% 1,000 ML 100 ML IV (12:08)
[2022-08-09] MEDS: pneumococcal (23 valent) SDV 0.5 mL IM (16:04)
--- NOTE | 2022-08-09 16:47 | PC.NURSE ---
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 2ml's of air is removed at 1028. 2ml's of air is removed at 1100. 2ml's of air is removed at 1130. 2ml's of air is removed at 1200. 2ml's of air is removed at 1241. 2ml's of air is removed at 1300. 2ml's of air is removed at 1330. TR-band is removed at 1428. A 2x2 and tegaderm dressing is applied.
[2022-08-09] MEDS: metoprolol tartrate 50 mg Tablet 25 MG PO (17:47)
[2022-08-10] VITALS: BP 140/86; PULSE 73; RESP 17; TEMP 37.2; O2SAT 98
[2022-08-10 03:50] VITALS: BP 133/82; PULSE 66; RESP 22; TEMP 36.8; O2SAT 95
[2022-08-10 06:00] VITALS: PULSE 78
[2022-08-10 06:18] LABS: Basophils % 0.5 %; Eosinophils # 0.1 10^3/uL (0.0-0.8); Eosinophils % 1.6 %; Hematocrit 45.5 % (42.0-52.0); Hemoglobin 15.1 g/dL (11.7-16.6); Lymphocytes # 1.8 10^3/uL (0.8-4.8); Lymphocytes % 20.3 %; Mean Corpuscular HGB Conc 33.2 g/dL (30.0-36.0); Mean Corpuscular Hemoglobin 30.5 pg (28.0-34.0); Mean Corpuscular Volume 91.9 fl (80-94); Monocytes # 0.6 10^3/uL (0.2-0.9); Monocytes % 7.3 %; Neutrophils # 6.03 10^3/uL (1.8-7.7); Neutrophils % 70.1 %; Nucleated Red Blood Cells % 0 %; Platelet Count 148 10^3/cmm (130-400); Red Blood Count 4.95 10^6/uL (4.1-5.3); White Blood Count 8.6 10^3/uL (4.0-10.0)
[2022-08-10 06:39] LABS: Anion Gap 13.1 (5-19); Blood Urea Nitrogen 16 mg/dL (8-23); Calcium 9.2 mg/dL (8.5-10.5); Carbon Dioxide 24 mmol/L (22-29); Chloride 105 mmol/L (98-107); Glucose 104 mg/dL (65-115); Osmolality Calculated 287 mOsm/kg (285-295); Potassium 4.1 mmol/L (3.5-5.1); Sodium 138 mmol/L (136-145)
[2022-08-10 07:39] VITALS: BP 150/77; PULSE 74; RESP 18; TEMP 37.2; O2SAT 98
[2022-08-10] MEDS: aspirin 81 mg EC Tablet PO (08:08)
[2022-08-10] MEDS: clopidogrel 75 mg Tablet PO (08:09)
[2022-08-10] MEDS: metoprolol tartrate 50 mg Tablet 25 MG PO (08:09)
--- NOTE | 2022-08-10 09:09 | P.DS_ITS ---
Discharge Providers Date of Admission: 08/09/2022 Date of Discharge: August 10, 2022 Attending Provider at Admission: Galileo Son MD Attending Provider at Discharge: Galileo Son M.D Primary Care Provider: Nabeel Zarate MD Reason for Visit Reason for Visit: I47.29, I25.10, U21.4 Brief History: 71 Year old man who has been having worsening dyspnea on exertion, frequent P VC/NSVT episodes and had abnormal stress test here for coronary angiogram. Hospital Course Hospital Course He had severe proximal LAD stenosis confirmed with iFR value of 0.8. He underwent successful revascularization with 1 stent. He was observed overnight and did not have any symptoms. He was discharged home in a stable condition. Physical Exam Narrative: GENERAL: Patient i s alert, awake and oriented x3. [] N CATE: No jugular ve in distension. [] HEENT: No cyanosis . No icterus. No p allor. [] HEART: R egular S1 and S2. No murmur, rub or gallop. [] LUNGS: Clear to auscultat e bilaterally. [] CENTRAL NERVOUS SY STEM: Grossly nonf ocal. [] EXTREMITI ES: Lower extremit ies with no edema bilaterally Discharge Data Studies Completed and Pending Pending at discharge Category Date Time Status DOCUMENT IMAGING MANAGER request for service Routine Exams 08/09/22 06:00 Taken Laboratory Results WBC 8.6 10^3/uL (4.0-10.0) 08/10/22 06:04 RBC 4.95 10^6/uL (4.1-5.3) 08/10/22 06:04 Hgb 15.1 g/dL (11.7-16.6) 08/10/22 06:04 Hct 45.5 % (42.0-52.0) 08/10/22 06:04 MCV 91.9 fl (80-94) 08/10/22 06:04 MCH 30.5 pg (28.0-34.0) 08/10/22 06:04 MCHC 33.2 g/dL (30.0-36.0) 08/10/22 06:04 RDW 13.0 % (12.1-15.1) 08/10/22 06:04 Plt Count 148 10^3/cmm (130-400) 08/10/22 06:04 MPV 11.0 fL (7.4-10.4) H 08/10/22 06:04 Neut % (Auto) 70.1 % 08/10/22 06:04 Lymph % (Auto) 20.3 % 08/10/22 06:04 [place] % (Auto) 7.3 % 08/10/22 06:04 Eos % (Auto) 1.6 % 08/10/22 06:04 Baso % (Auto) 0.5 % 08/10/22 06:04 Neut # (Auto) 6.03 10^3/uL (1.8-7.7) 08/10/22 06:04 Lymph # (Auto) 1.8 10^3/uL (0.8-4.8) 08/10/22 06:04 [place] # (Auto) 0.6 10^3/uL (0.2-0.9) 08/10/22 06:04 Eos # (Auto) 0.1 10^3/uL (0.0-0.8) 08/10/22 06:04 Baso # (Auto) 0.0 10^3/uL (0.0-0.1) 08/10/22 06:04 Nucleated RBC % (auto) 0 % 08/10/22 06:04 Nucleated RBCs # 0.0 /100WBC 08/10/22 06:04 Sodium 138 mmol/L (136-145) 08/10/22 06:04 Potassium 4.1 mmol/L (3.5-5.1) 08/10/22 06:04 Chloride 105 mmol/L (98-107) 08/10/22 06:04 Carbon Dioxide 24 mmol/L (22-29) 08/10/22 06:04 Anion Gap 13.1 (5-19) 08/10/22 06:04 BUN 16 mg/dL (8-23) 08/10/22 06:04 Creatinine 1.1 mg/dL (0.7-1.2) 08/10/22 06:04 GFR Calculation Not Reportable 08/10/22 06:04 Glucose 104 mg/dL (65-115) 08/10/22 06:04 Calculated Osmolality 287 mOsm/kg (285-295) 08/10/22 06:04 Calcium 9.2 mg/dL (8.5-10.5) 08/10/22 06:04 Vitals Last Vital Signs Temp 98.9 F 08/10/22 07:39 Pulse 74 08/10/22 07:39 Resp 18 08/10/22 07:39 BP 150/77 08/10/22 07:39 Pulse Ox 98 08/10/22 07:39 O2 Del Method Room Air 08/10/22 07:39 Discharge Plan Discharge Patient Disposition: Home Prescriptions: New clopidogrel 75 mg Tablet 75 mg PO DAILY Qty: 90 3RF Continued docusate sodium 250 mg capsule 250 mg PO BID Qty: 60 3RF lisinopril 10 mg tablet See Rx Instructions .ROUTE .COMPLEX Qty: 90 3RF Dose Instruction: TAKE 1 TABLET BY MOUTH EVERY DAY Rx Instructions: TAKE 1 TABLET BY MOUTH EVERY DAY nitroglycerin 0.4 mg tablet, sublingual 0.4 mg sublingual Q5M PRN (Reason: Chest Pain) Qty: 30 0RF magnesium oxide 400 mg (241.3 mg magnesium) tablet 400 mg PO BID PRN (Reason: constipation) Qty: 60 5RF metoprolol tartrate 50 mg tablet 25 mg PO BID Qty: 90 3RF aspirin [Karli Low Dose Aspirin] 81 mg Tablet,Delayed Release (Dr/Ec) 81 mg PO DAILY Discharge Orders: Discharge Order (Routine); Ordered 08/10/22 Ordered By: Galileo Son Referrals: Ligia Dodd FNP [Nurse Practitioner] - 08/19/22 1:30 pm (Please follow-up with Ligia Dodd on August 19 at 1:30P.M. If you have any questions or need to reschedule. Please call ) Diet: Cardiac Activity: Increase activity as tolerated Patient Instructions: Clopidogrel (By mouth) (Plavix), Coronary Angioplasty (DC), DASH Eating Plan (DC), Post Angiogram Home Care Instructions, Post Heart Attack Stoplight Discharge Date/Time: 08/10/22 10:39 Discharge Attestations Time Spent in Discharge Care*: less than 30 min Status at Discharge: Cognitive status at discharge: cognitively intact , Behavioral status at discharge: cooperative , Quality Metrics Clinical Quality Measures [ No reported AMI, CVA or VTE this stay] Coding Level of Care Code Acute Code for Chg Fwd Diagnoses
[2022-08-10 10:30] VITALS: BP 150/77; PULSE 74; RESP 18; TEMP 37.2; O2SAT 98
--- NOTE | 2022-08-10 10:41 | PC.NURSE ---
Patient is discharged, all questions were answered, and new medications were sent to pharmacy. He is wheeled out in a wheelchair and his drove him home.
== END 2022-08-10 10:39 | disposition home or self-care (01) ==
LOC: CCL 06:02 → CSU 09:47
PROVIDERS: PCP Family Medicine Adult Medicine; Visit Provider Internal Medicine
DX: R94.39 Abnormal result of other cardiovascular function study (principal); I25.10 Atherosclerotic heart disease of native coronary artery without angina pectoris; R06.00 Dyspnea, unspecified; I47.29 Other ventricular tachycardia; Z79.82 Long term (current) use of aspirin; I10 Essential (primary) hypertension; E78.5 Hyperlipidemia, unspecified; Z87.891 Personal history of nicotine dependence; Z23 Encounter for immunization
CPT/HCPCS: 36415; 80048; 85025; 85347; 90471; 90732; 93454; 93571; 96361; 96365; 96376; 99152; 99153; C1725; C1769; C1874; C1887; C1894; C9600; J1644; J2250; J3010; J3490; J7030; Q0163; Q9967

== ENCOUNTER → 2022-08-24 13:57 | Outpatient (BNVA) | payer MEDICARE, SELFPAY | PROVIDERS: PCP Family Medicine Adult Medicine; Visit Provider Nurse Practitioner Family | DX: I25.10 Atherosclerotic heart disease of native coronary artery without angina pectoris (principal); Z87.891 Personal history of nicotine dependence; I10 Essential (primary) hypertension; Z79.82 Long term (current) use of aspirin | CPT/HCPCS: 36415; 80048; 99214 ==

== ENCOUNTER → 2022-09-28 12:41 | Outpatient (BNVA) | payer MEDICARE, SELFPAY | PROVIDERS: PCP Family Medicine Adult Medicine; Referring Provider Family Medicine Adult Medicine; Visit Provider Dermatology | DX: L57.0 Actinic keratosis (principal); L82.0 Inflamed seborrheic keratosis; L72.0 Epidermal cyst; L81.4 Other melanin hyperpigmentation; L98.8 Other specified disorders of the skin and subcutaneous tissue; L82.1 Other seborrheic keratosis | CPT/HCPCS: 17000; 17003; 17110; 99203 ==

== ENCOUNTER → 2022-10-01 10:55 | Outpatient (BNVA) | payer MEDICARE, SELFPAY | PROVIDERS: PCP Family Medicine Adult Medicine; Visit Provider Internal Medicine | DX: I25.110 Atherosclerotic heart disease of native coronary artery with unstable angina pectoris (principal); I47.29 Other ventricular tachycardia; I49.3 Ventricular premature depolarization; I10 Essential (primary) hypertension; E78.5 Hyperlipidemia, unspecified; Z87.891 Personal history of nicotine dependence | CPT/HCPCS: 99214 ==

== ENCOUNTER 2022-10-15 14:23 | Outpatient (CLI) | payer MEDICARE, SELFPAY ==
--- NOTE | 2022-10-15 14:30 | USCV_ITS ---
Jean Carlos Chavez Age: 71 Gender: M : 1950 Exam Date: 10/15/2022 14:56 Ordering Phys: Galileo Son M.D ([email or web address]) Technologist: Marybeth Onofre Exam Location: [facility] [place] Indication: SOB. CARDIAC HISTORY OF [place] BP: 120 / 60 HR: 85 Rhythm: Other Technical Quality: Adequate MEASUREMENTS (Male / Female) Normal Values 2D ECHO LV Diastolic Diameter PLAX 5.4 cm 4.2 - 5.9 / 3.9 - 5.3 cm LV Systolic Diameter PLAX 5.1 cm LV Chamber Size 4.8 cm IVS Diastolic Thickness 1.3 cm 0.6 - 1.0 / 0.6 - 0.9 cm IVS Systolic Thickness 1.3 cm LVPW Diastolic Thickness 1.3 cm 0.6 - 1.0 / 0.6 - 0.9 cm LVPW Systolic Thickness 1.6 cm RV Chamber Size 4.4 cm LVOT Diameter 2.0 cm LV Ejection Fraction 2D Teich 19.3 % LV Ejection Fraction MOD 2C 18.1 % LV Ejection Fraction 2C AL 20.9 % LA Diameter 4.6 cm LA Width 3.8 cm LA Height 4.8 cm RA Width 4.3 cm RA Height 4.5 cm Aorta at Sinotubular Diameter 3.2 cm IVC Diameter 1.8 cm M-MODE Aortic Annulus Diameter 4.3 cm LA Ao Ratio MM 1.1 MV E Point Septal Separation 1.6 cm DOPPLER AV Peak Velocity 112.0 cm/s LVOT Peak Velocity 89.0 cm/s AV Area Cont Eq vti 2.1 cm squared AV Area Cont Eq pk 2.6 cm squared MV Area PHT 3.1 cm squared Mitral E to A Ratio 0.8 MV E' Velocity 44.5 cm/s Mitral E to MV E' Ratio 9.7 Mitral E to LV E' Lateral Ratio 11.4 Mitral E to LV E' Septal Ratio 8.4 TR Peak Velocity 168.5 cm/s TR Peak Gradient 11.4 mmHg TR Mean Velocity 59.1 cm/s TR Mean Gradient 1.6 mmHg TR Velocity Time Integral 22.2 cm TV Peak E Velocity 59.0 cm/s FINDINGS Left Ventricle Left ventricle is dilated. LV systolic function is severely reduced with EF of 30-35%. Moderate global hypokinesis. Severe hypokinesis of inferior and inferolateral snyder. Right Ventricle Normal in size and function Right Atrium Normal in size Left Atrium Dilated Mitral Valve Structurally normal mitral valve. Moderate mitral regurgitation Aortic Valve Structurally normal aortic valve.No significant stenosis or regurgitation. Tricuspid Valve Trace tricuspid regurgitation. Insufficient TR jet to calculate RVSP. Pulmonic Valve Not well visualized Pericardium Normal Aorta Normal in size IVC Appears to be normal CONCLUSIONS LV systolic function severely reduced with EF of 30 to 35%. Above-mentioned regional wall motion normalities Left atrial dilation Moderate mitral regurgitation Trace tricuspid regurgitation Compared to prior echocardiogram from 2019, LV systolic function has decreased Galileo Son MD (Electronically Signed) Final Date: 29 October 2022 15:41 S
== END 2022-10-15 14:24 | disposition home or self-care (01) ==
PROVIDERS: PCP Family Medicine Adult Medicine; Visit Provider Internal Medicine
DX: R06.02 Shortness of breath (principal); I25.2 Old myocardial infarction; I34.0 Nonrheumatic mitral (valve) insufficiency
CPT/HCPCS: 93306

== ENCOUNTER → 2022-11-17 15:03 | Outpatient (BNVA) | payer MEDICARE, SELFPAY | PROVIDERS: PCP Family Medicine Adult Medicine; Visit Provider Dermatology | DX: L72.0 Epidermal cyst (principal); L21.8 Other seborrheic dermatitis | CPT/HCPCS: 99214 ==

== ENCOUNTER → 2022-12-01 08:51 | Outpatient (BNVA) | payer MEDICARE, SELFPAY | PROVIDERS: PCP Family Medicine Adult Medicine; Visit Provider Dermatology | DX: D48.5 Neoplasm of uncertain behavior of skin (principal) | CPT/HCPCS: 11404; 12032 ==

== ENCOUNTER 2023-03-11 17:02 | Emergency (ER) | payer MEDICARE, SELFPAY ==
[2023-03-11 17:06] VITALS: BP 163/95; PULSE 95; RESP 16; O2SAT 100
--- NOTE | 2023-03-11 17:16 | ECG_ITS ---
[facility] Test Date: 2023-03-11 Pat Name: Jean Carlos Chavez Department: Room: Gender: Male Verification Manager: : 1950 Requested By: Carson Hawkins Order Number: [id number] Suraj MD: Galileo Son M.D. Measurements Intervals [place] Rate: 110 P: 50 [place]: 160 QRS: 51 QRSD: 92 T: 92 QT: 319 QTc: 432 Interpretive Statements SINUS TACHYCARDIA WITH FREQUENT VENTRICULAR PREMATURE COMPLEXES WITH OCCASIONAL SUPRAVENTRICULAR PREMATURE COMPLEXES NONSPECIFIC ST & T-WAVE ABNORMALITY Compared to ECG 10/07/2019 13:14:14 T-wave abnormality now present Sinus rhythm no longer present Myocardial infarct finding no longer present Electronically Signed On 03-12-2023 23:13:40 HEALTH CLAIMS EXAMINER by Galileo Son M.D. [id number] f
--- NOTE | 2023-03-11 17:28 | XRR_ITS ---
PROCEDURE INFORMATION: Exam: XR Chest Exam date and time: 03/11/2023 5:36 PM Age: 72 years old Clinical indication: Other: Palpitations TECHNIQUE: Imaging protocol: Radiologic exam of the chest. Views: 1 view. COMPARISON: CR XR chest 1V portable [id number] 10/07/2019 3:24 AM FINDINGS: Lungs: No focal consolidation. Pleural spaces: No evidence of pneumothorax. No evidence of pleural effusion. Heart/Mediastinum: Cardiomediastinal silhouette is within normal limits. Bones/joints: No evidence of acute osseous abnormality. XR/XR chest 1V portable [id number] IMPRESSION: 1. No acute cardiopulmonary abnormality.
[2023-03-11 17:56] LABS: Basophils % 0.4 %; Eosinophils # 0.1 10^3/uL (0.0-0.8); Eosinophils % 0.5 %; Hematocrit 42.3 % (37-53); Lymphocytes # 1.8 10^3/uL (0.8-4.8); Lymphocytes % 18.1 %; Mean Corpuscular HGB Conc 34.5 g/dL (30-55); Mean Corpuscular Hemoglobin 31.9 pg (27-33); Mean Corpuscular Volume 92.4 fl (82-101); Mean Platelet Volume 11.1 fL (7.4-10.4); Monocytes # 0.8 10^3/uL (0.2-0.9); Monocytes % 8.3 %; Neutrophils # 7.33 10^3/uL (1.8-7.7); Neutrophils % 72.4 %; Nucleated Red Blood Cells % 0 %; Platelet Count 146 10^3/cmm (157-399); Red Blood Count 4.58 10^6/uL (3.85-5.65); Red Cell Distribution Width 13.2 % (12.1-15.1); White Blood Count 10.12 10^3/uL (3.29-11.43)
[2023-03-11 18:08] VITALS: BP 145/87; PULSE 106; RESP 18; O2SAT 98
--- NOTE | 2023-03-11 18:09 | ED_ITS ---
HPI - Arrhythmia/Palpitations 2 General: Chief Complaint: Arrhythmia/Palpitations Stated Complaint: elevated heart rate Time Seen by Provider: 03/11/23 17:27 History of Present Illness: Patient presents to the ER today with palpitations and shortness of breath. Patient said he was out shoveling when he noticed his heart was racing and he started getting short of breath. Patient sat down and then this went away but it came back a couple more times. Then patient presents to the ER for further workup. Patient does have a cardiac history as he has had heart attacks in the past and has [address] Webster and Ligia Dodd, patient states he had an echo and a cardiac stress test within the last year. Echo showed EF of 30 to 35% with severely reduced left ventricular systolic function. Patient had Holter monitor on April 2022 that showed no for A-fib but multiple episodes of nonsustained V. tach. Maximum heart rate was 138 beats a minute. Review of Systems 2 General: Reports: 10 or more systems reviewed and unremarkable except in HPI and below PFSH ED 2 PFSH: Medical History Atherosclerosis of coronary artery Chronic constipation Dyslipidemia Benign essential HTN Hypokalemia Atherosclerotic heart disease of [place] coronary artery with unstable angina pectoris Marijuana abuse Coronary artery disease Surgical History H/O right coronary artery stent placement Family History Father CAD (coronary artery disease) Other Adopted Denies family history of Diabetes Clotting disorder Dementia Suicide Anesthesia complication Bleeding disorder Lung disease Stroke Social History Smoking and tobacco/nicotine status: former use of tobacco/nicotine Alcohol intake: current Alcohol intake frequency: holidays/special occasions only Alcohol type: beer Substance/Drug Use: former Household members: spouse Housing: House Marital status: Current occupational status: retired Physical Exam 2 Const: COMMON NORMALS: no acute distress, average body habitus, patient oriented x3, no limitations, healthy appearing, alert and well nourished HENMT: COMMON NORMALS: normocephalic, atraumatic, hearing grossly normal bilaterally, external ears normal, Normal external nose present, moist oral mucous membranes and oropharynx normal HEAD & SCALP: normocephalic and atraumatic NOSE: Normal external nose present EXTERNAL EAR: Yes external ears normal Neck/C-Spine: COMMON NORMALS: no JVD Chest: COMMONS NORMALS: normal inspection of the chest and normal palpation of entire chest wall Resp: COMMON NORMALS: normal respiratory effort, No retractions, No use of accessory muscles and clear to auscultation bilaterally AUSCULTATION: clear to auscultation bilaterally Cardio: COMMON NORMALS: no JVD, regular rate, regular rhythm, S1 normal heart sound present, S2 normal heart sound present, No gallops present (Cardio), No clicks present (Cardio), No murmurs present (Cardio) and No rub (Cardio) R ATE: regular rate RHYTHM: regular rhythm HEART SOUNDS: S1 normal heart sound present and S2 normal heart sound present GI: COMMON NORMALS: Normal to inspection, nondistended, normoactive bowel sounds present, Soft to palpation, non-tender, No hepatosplenomegaly present and no masses PALPATION: Yes Soft to palpation and Yes No hepatosplenomegaly present Neuro: COMMON NORMALS: patient oriented x3 SENSORIUM/ORIENTATION: Yes alert Course 2 Vital Signs: Vital signs: Vital Signs Pulse Rate 94 03/11/23 21:19 Respiratory Rate 19 H 03/11/23 21:19 Blood Pressure 145/87 03/11/23 18:08 Pulse Oximetry 95 03/11/23 21:19 Oxygen Delivery Me thod Room Air 03/11/23 18:08 MDM - Arrhythmia/Palpitations Medical Decision Making Patient had physical exam as well as lab work included CBC CMP serial troponins TSH urinalysis and chest x-ray. All of which were essentially benign. Appears to be his patient is having palpitations patient is already seeing Dr. Webster cardiology suggest patient follow back up with PCP and/or prior authorization technician for further testing as needed. Differential Diagnosis Likely palpitations; Unlikely anxiety, sinus tachycardia, artial fibrillation, artial flutter, ventricular premature beats, supraventricular tachycardia, ventricular tachycardia or WPW Medical Records I reviewed the patient's medical records. Lab Data I reviewed the patient's lab results. 03/11/23 17:33 03/11/23 17:33 Radiology Impressions Chest X-Ray 03/11/23 17:28 IMPRESSION: 1. No acute cardiopulmonary abnormality. Laboratory Results WBC 10.12 10^3/uL (3.29-11.43) 03/11/23 17:33 RBC 4.58 10^6/uL (3.85-5.65) 03/11/23 17:33 Hgb 14.60 g/dL (11.27-16.99) 03/11/23 17:33 Hct 42.3 % (37-53) 03/11/23 17:33 MCV 92.4 fl (82-101) 03/11/23 17:33 MCH 31.9 pg (27-33) 03/11/23 17:33 MCHC 34.5 g/dL (30-55) 03/11/23 17:33 RDW 13.2 % (12.1-15.1) 03/11/23 17:33 Plt Count 146 10^3/cmm (157-399) L 03/11/23 17:33 MPV 11.1 fL (7.4-10.4) H 03/11/23 17:33 Neut % (Auto) 72.4 % 03/11/23 17:33 Lymph % (Auto) 18.1 % 03/11/23 17:33 [place] % (Auto) 8.3 % 03/11/23 17:33 Eos % (Auto) 0.5 % 03/11/23 17:33 Baso % (Auto) 0.4 % 03/11/23 17:33 Neut # (Auto) 7.33 10^3/uL (1.8-7.7) 03/11/23 17:33 Lymph # (Auto) 1.8 10^3/uL (0.8-4.8) 03/11/23 17:33 [place] # (Auto) 0.8 10^3/uL (0.2-0.9) 03/11/23 17:33 Eos # (Auto) 0.1 10^3/uL (0.0-0.8) 03/11/23 17:33 Baso # (Auto) 0.0 10^3/uL (0.0-0.1) 03/11/23 17:33 Nucleated RBC % (auto) 0 % 03/11/23 17:33 Nucleated RBCs # 0.0 /100WBC 03/11/23 17:33 PT 14.10 SECONDS (12.1-14.9) 03/11/23 17:33 INR 1.06 (0.8-1.2) 03/11/23 17:33 Sodium 138 mmol/L (136-145) 03/11/23 17:33 Potassium 3.9 mmol/L (3.5-5.1) 03/11/23 17:33 Chloride 103 mmol/L (98-107) 03/11/23 17:33 Carbon Dioxide 21 mmol/L (22-29) L 03/11/23 17:33 Anion Gap 17.9 (5-19) 03/11/23 17:33 BUN 23 mg/dL (8-23) 03/11/23 17:33 Creatinine 1.4 mg/dL (0.7-1.2) H 03/11/23 17:33 GFR Calculation Not Reportable 03/11/23 17:33 Glucose 111 mg/dL (65-115) 03/11/23 17:33 Calculated Osmolality 290 mOsm/kg (285-295) 03/11/23 17:33 Calcium 9.4 mg/dL (8.5-10.5) 03/11/23 17:33 Magnesium 1.9 mg/dL (1.7-2.3) 03/11/23 17:33 Total Bilirubin 1.1 mg/dL (0.15-1.2) 03/11/23 17:33 AST 16 U/L (0-40) 03/11/23 17:33 ALT 10 U/L (0-41) 03/11/23 17:33 Alkaline Phosphatase 138 U/L (40-130) H 03/11/23 17:33 Troponin T Baseline 33 ng/L (0-15) H 03/11/23 17:33 Troponin T 120 Minute 40.69 ng/L (0-15) H 03/11/23 19:46 Delta Troponin T 7.69 ABS# (0-10) 03/11/23 19:46 Total Protein 6.7 g/dL (6.6-8.7) 03/11/23 17:33 Albumin 4.2 g/dL (3.5-5.2) 03/11/23 17:33 Globulin 2.5 g/dL (1.3-4.6) 03/11/23 17:33 Urine Color Yellow (Yellow) 03/11/23 17:35 Urine Appearance Clear (CLEAR) 03/11/23 17:35 Urine pH 5 (5-7) 03/11/23 17:35 Ur Specific [place] 1.010 (1.005-1.030) 03/11/23 17:35 Urine Protein Neg (Negative) 03/11/23 17:35 Urine Glucose (UA) Norm (Normal) 03/11/23 17:35 Urine Ketones Negative (Negative) 03/11/23 17:35 Urine Blood 3+ (Negative) H 03/11/23 17:35 Urine Nitrate Negative (Negative) 03/11/23 17:35 Urine Bilirubin Neg (Negative) 03/11/23 17:35 Urine Urobilinogen Norm mg/dL (Negative) 03/11/23 17:35 Ur Leukocyte Esterase Negative (Negative) 03/11/23 17:35 Urine RBC 15-25 /hpf (0-2) H 03/11/23 17:35 Urine WBC 0-4 /hpf (0-5) H 03/11/23 17:35 Ur Squamous Epith Cells 0-4 /hpf (0-5) H 03/11/23 17:35 Amorphous Sediment Trace /hpf 03/11/23 17:35 Urine Bacteria Trace /hpf (NONE) 03/11/23 17:35 Urine Yeast 1+ /hpf H 03/11/23 17:35 All radiology interpretation(s) finalized by discharge EKG Data EKG 1: I personally reviewed and interpreted this EKG as follows: EKG interpretation date: 03/11/23 EKG interpretation time: 17:16 Prior EKG tracings: not available for review Interpretation: EKG showed ventricular rate 110 beats minute, [place] interval 160, QRS duration 82, QTc 384, sinus tachycardia with occasional PVCs, nonspecific ST-T wave abnormalities Other EKG comments: Chest X-Ray 03/11/23 17:28 IMPRESSION: 1. No acute cardiopulmonary abnormality. EKG 2: I personally reviewed and interpreted this EKG as follows: EKG interpretation date: 03/11/23 EKG interpretation time: 21:05 Prior EKG tracings: available for review Interpretation: Ventricular rate 75 beats minute, [place] interval 200, QRS duration 86, QTc 395, sinus rhythm with occasional PVC, nonspecific ST abnormality Other EKG comments: Chest X-Ray 03/11/23 17:28 IMPRESSION: 1. No acute cardiopulmonary abnormality. Discharge Plan Discharge Patient Disposition: Home Clinical Impression: Palpitations Condition: Stable Prescriptions: No Action nitroglycerin 0.4 mg tablet, sublingual 0.4 mg sublingual Q5M PRN (Reason: Chest Pain) Qty: 30 0RF magnesium oxide 400 mg (241.3 mg magnesium) tablet 400 mg PO BID PRN (Reason: constipation) Qty: 60 5RF metoprolol tartrate 50 mg tablet 25 mg PO BID Qty: 90 3RF clopidogrel 75 mg tablet 75 mg PO DAILY Qty: 90 3RF docusate sodium 250 mg capsule 250 mg PO BID Qty: 60 3RF lisinopril 10 mg tablet See Rx Instructions .ROUTE .COMPLEX Qty: 90 3RF Dose Instruction: TAKE 1 TABLET BY MOUTH EVERY DAY Rx Instructions: TAKE 1 TABLET BY MOUTH EVERY DAY aspirin [Karli Low Dose Aspirin] 81 mg Tablet,Delayed Release (Dr/Ec) 81 mg PO DAILY Discharge Orders: Discharge ED (Routine); Ordered 03/11/23 Ordered By: Carson Hawkins Referrals: Nabeel Zarate MD [Primary Care Provider] - 1 week Patient Instructions: Heart Palpitations Activity Restrictions/Additional Instructions: Evaluation in ER did not reveal any acute causes of your palpitations. These may require further evaluation and treatment. Please follow-up with your primary care physician or your prior authorization technician for further workup. If these worsen please return to the ER. Coding Level of Care Code ED Customer Care Voice Consultant for Taylor Rocha
[2023-03-11 18:14] LABS: INR 1.06 (0.8-1.2)
[2023-03-11 18:20] LABS: Troponin(5th) Baseline 33 ng/L (0-15)
[2023-03-11 18:21] LABS: Alanine Aminotransferase 10 U/L (0-41); Albumin Level 4.2 g/dL (3.5-5.2); Alkaline Phosphatase 138 U/L (40-130); Anion Gap 17.9 (5-19); Aspartate Amino Transferase 16 U/L (0-40); Blood Urea Nitrogen 23 mg/dL (8-23); Calcium 9.4 mg/dL (8.5-10.5); Carbon Dioxide 21 mmol/L (22-29); Chloride 103 mmol/L (98-107); Globulin 2.5 g/dL (1.3-4.6); Glucose 111 mg/dL (65-115); Magnesium 1.9 mg/dL (1.7-2.3); Osmolality Calculated 290 mOsm/kg (285-295); Potassium 3.9 mmol/L (3.5-5.1); Sodium 138 mmol/L (136-145); Total Bilirubin 1.1 mg/dL (0.15-1.2); Total Protein 6.7 g/dL (6.6-8.7)
[2023-03-11 18:22] LABS: Add Urine Microscopic? YES; Bilirubin Urine Neg (Negative); Blood Urine 3+ (Negative); Glucose Urine UA Norm (Normal); Ketones Urine Negative (Negative); Leukocyte Esterase Urine Negative (Negative); Nitrate Urine Negative (Negative); Protein Urine Neg (Negative); Urine Appearance Clear (CLEAR); Urine Color Yellow (Yellow); Urobilinogen Urine Norm (Negative); pH Urine 5 (5-7)
[2023-03-11 18:23] LABS: Add Urine Culture? Yes; Amorphous Sediment Urine TRACE /hpf; Bacteria Urine TRACE /hpf; RBC Urine 15-25 /hpf (0-2); Squamous Epithelial Cell Urine 0-4 /hpf (0-5); WBC Urine 0-4 /hpf (0-5)
[2023-03-11 20:22] LABS: Troponin 5 2HR 40.69 ng/L (0-15); Troponin 5 2HR Delta 7.69 ABS# (0-10)
[2023-03-11 21:19] VITALS: PULSE 94; RESP 19; O2SAT 95
--- NOTE | 2023-03-11 23:28 | ECG_ITS ---
[facility] Test Date: 2023-03-11 Pat Name: Jean Carlos Chavez Department: Room: Gender: Male Social Media Intern: : 1950 Requested By: Carson Hawkins Order Number: [id number] Ruelas MD: Galileo Son M.D. Measurements Intervals [place] Rate: 75 P: 42 [place]: 200 QRS: 49 QRSD: 86 T: 46 QT: 366 QTc: 411 Interpretive Statements SINUS RHYTHM WITH OCCASIONAL VENTRICULAR PREMATURE COMPLEXES POSSIBLE LEFT ATRIAL ENLARGEMENT [-0.1mV P-WAVE IN V1/V2] NONSPECIFIC T-WAVE ABNORMALITY Compared to ECG 03/11/2023 17:16:28 Sinus tachycardia no longer present T-wave abnormality still present Electronically Signed On 03-12-2023 23:23:14 PHOTO LAB MANAGER by Galileo Son M.D. [id number]
== END 2023-03-11 21:16 | disposition home or self-care (01) ==
PROVIDERS: Emergency Provider Emergency Medicine; PCP Family Medicine Adult Medicine
DX: R00.2 Palpitations (principal); Z79.02 Long term (current) use of antithrombotics/antiplatelets; Z79.82 Long term (current) use of aspirin; Z87.891 Personal history of nicotine dependence; E78.5 Hyperlipidemia, unspecified; I10 Essential (primary) hypertension; I25.10 Atherosclerotic heart disease of native coronary artery without angina pectoris
CPT/HCPCS: 71045; 80053; 81001; 83735; 84484; 85025; 85610; 87086; 93005; 99285

== ENCOUNTER → 2023-03-22 13:09 | Outpatient (BNVA) | payer MEDICARE, SELFPAY | PROVIDERS: PCP Family Medicine Adult Medicine; Visit Provider Internal Medicine | DX: I25.110 Atherosclerotic heart disease of native coronary artery with unstable angina pectoris (principal); I49.3 Ventricular premature depolarization; I10 Essential (primary) hypertension; E78.5 Hyperlipidemia, unspecified; I47.29 Other ventricular tachycardia; Z87.891 Personal history of nicotine dependence | CPT/HCPCS: 99214 ==

== ENCOUNTER 2023-03-31 13:22 | Outpatient (CLI) | payer MEDICARE, SELFPAY ==
--- NOTE | 2023-03-31 13:45 | USCV_ITS ---
Jean Carlos Chavez Age: 72 Gender: M : 1950 Exam Date: 03/31/2023 13:42 Ordering Phys: Galileo Son M.D ([email or web address]) Technologist: Marybeth Onofre Exam Location: [facility] [place] Indication: recheck ef BP: / HR: 80 Rhythm: Sinus Technical Quality: Adequate MEASUREMENTS (Male / Female) Normal Values 2D ECHO LV Diastolic Diameter PLAX 6.0 cm 4.2 - 5.9 / 3.9 - 5.3 cm IVS Diastolic Thickness 1.7 cm 0.6 - 1.0 / 0.6 - 0.9 cm IVS Systolic Thickness 1.7 cm LVPW Diastolic Thickness 1.2 cm 0.6 - 1.0 / 0.6 - 0.9 cm LVPW Systolic Thickness 1.3 cm LVOT Diameter 2.0 cm LV Ejection Fraction 2D Teich 35.8 % LV Ejection Fraction MOD 2C 8.5 % LV Ejection Fraction 2C AL 0.0 % LA Diameter 4.3 cm FINDINGS Left Ventricle Right Ventricle Right Atrium Left Atrium Mitral Valve Aortic Valve Tricuspid Valve Pulmonic Valve Pericardium Aorta IVC CONCLUSIONS Limited echocardiogram performed to assess LV systolic function. LV systolic function is moderately reduced with EF of 35 to 40%. Moderate global hypokinesis seen. Compared to prior echocardiogram from 10/2022, LV systolic has improved slightly Galileo Son MD (Electronically Signed) Final Date: 02 April 2023 13:36 S
== END 2023-03-31 13:23 | disposition home or self-care (01) ==
LOC: RAD 13:23
PROVIDERS: PCP Family Medicine Adult Medicine; Visit Provider Internal Medicine
DX: R07.9 Chest pain, unspecified (principal); R06.02 Shortness of breath
CPT/HCPCS: 93308

== ENCOUNTER 2023-04-19 09:56 | Outpatient (CLI) | payer MEDICARE, SELFPAY ==
--- NOTE | 2023-04-19 10:23 | NMCV_ITS ---
NM card bld pool r or s*[id number] Jean Carlos Chavez Age: 72 Gender: M : 1950 Exam Date: 04/19/2023 10:23 Ordering Phys: Galileo Son M.D ([email or web address]) Technologist: BARB Golden Exam Location: [facility] Indications: LEFT VENTRICULAR FAILURE Camera Used: PacerPro Imaging Protocol: three view gated blood pool study Technical Image Quality: Good Dose: Admin Site: Administered By: [email or web address] Tagged RBCs: 24.6 IV - Right BARB Golden Antecubital PYP: EJECTION FRACTION: Automatic LV EF: 31 Rest RV EF: Manual LV EF: FINDINGS LV systolic function is severely reduced with EF of 31% CONCLUSIONS LV systolic function is severely reduced with EF of 31%. Galileo Son MD (Electronically Signed) Final Date: 19 April 2023 11:42 S
== END 2023-04-19 09:57 | disposition home or self-care (01) ==
LOC: RAD 09:57
PROVIDERS: PCP Family Medicine Adult Medicine; Visit Provider Internal Medicine
DX: I50.20 Unspecified systolic (congestive) heart failure (principal)
CPT/HCPCS: 78472; A9560

== ENCOUNTER → 2023-05-09 10:18 | Outpatient (BNVA) | payer MEDICARE, SELFPAY | PROVIDERS: PCP Family Medicine Adult Medicine; Visit Provider Thoracic Surgery (Cardiothoracic Vascular Surgery) | DX: I11.0 Hypertensive heart disease with heart failure (principal); I50.20 Unspecified systolic (congestive) heart failure; Z87.891 Personal history of nicotine dependence | CPT/HCPCS: 99203 ==

== ENCOUNTER 2023-05-13 13:29 | Outpatient (CLI) | payer MEDICARE, SELFPAY ==
--- NOTE | 2023-05-13 13:45 | USCV_ITS ---
ChavezJean Carlos hall Age: 72 Gender: M : 1950 Exam Date: 05/13/2023 13:56 Ordering Phys: Luiz Melchor MD (Andy) ([email or web address] [place]) Technologist: Haim Haney [place] [facility] [place]ication: sob BP: 116 / 70 HR: 56 Rhythm: Other Technical Quality: Adequate MEASUREMENTS (Male / Female) Normal Values 2D ECHO LVOT Diameter 2.4 cm LV Ejection Fraction MOD 2C 40.9 % LV Ejection Fraction 2C AL 41.1 % LA Diameter 5.1 cm RA Systolic Volume 4C AL 56.9 ml RA Systolic Volume 4C MOD 57.7 ml Aorta at Sinotubular Diameter 3.0 cm M-MODE LA Ao Ratio MM 1.2 AV Cusp Separation MM 2.4 cm DOPPLER AV Peak Velocity 93.7 cm/s LVOT Peak Velocity 65.0 cm/s AV Area Cont Eq vti 3.5 cm squared AV Area Cont Eq pk 3.1 cm squared MV Peak Velocity 74.0 cm/s MV Area PHT 3.1 cm squared Mitral E to A Ratio 0.8 TV Peak Velocity 205.5 cm/s TR Peak Velocity 231.0 cm/s TR Peak Gradient 21.3 mmHg TR Mean Velocity 193.0 cm/s TR Mean Gradient 15.7 mmHg TR Velocity Time Integral 73.9 cm PV Peak Velocity 67.0 cm/s RV Ejection Time 0.3 s FINDINGS Left Ventricle Left ventricle is dilated. LV systolic function is severely reduced with EF of 30%. Severe global hypokinesis seen. Grade 1 diastolic dysfunction. Right Ventricle Normal in size and function Right Atrium Normal in size Left Atrium Dilated Mitral Valve Structurally normal mitral valve. Moderate mitral regurgitation. Aortic Valve Structurally normal aortic valve. No significant stenosis or regurgitation. Tricuspid Valve Trace tricuspid regurgitation. Insufficient TR jet to evaluate RVSP. Pulmonic Valve Mild pulmonic regurgitation. Pericardium Normal Aorta Normal in size IVC Not well visualized CONCLUSIONS Left ventricle is dilated. LV systolic function severely reduced with EF of 30%. Grade 1 diastolic dysfunction. Left atrial dilation Moderate mitral regurgitation. Trace tricuspid regurgitation Mild pulmonic regurgitation Compared to prior echocardiogram from 03/2023, LV systolic function is reduced and EF is 30% now. Galileo Son MD (Electronically Signed) Final Date: 21 May 2023 20:51 S
== END 2023-05-13 13:30 | disposition home or self-care (01) ==
LOC: RAD 13:29
PROVIDERS: PCP Family Medicine Adult Medicine; Visit Provider Thoracic Surgery (Cardiothoracic Vascular Surgery)
DX: I34.0 Nonrheumatic mitral (valve) insufficiency (principal); I37.1 Nonrheumatic pulmonary valve insufficiency
CPT/HCPCS: 93306

== ENCOUNTER → 2023-05-23 11:59 | Outpatient (BNVA) | payer MEDICARE, SELFPAY | PROVIDERS: PCP Family Medicine Adult Medicine; Visit Provider Internal Medicine | DX: I25.110 Atherosclerotic heart disease of native coronary artery with unstable angina pectoris (principal); I49.3 Ventricular premature depolarization; I10 Essential (primary) hypertension; E78.5 Hyperlipidemia, unspecified; I47.29 Other ventricular tachycardia; Z87.891 Personal history of nicotine dependence | CPT/HCPCS: 99214 ==

== ENCOUNTER 2023-06-23 14:36 | Emergency (ER) | payer MEDICARE, SELFPAY ==
[2023-06-23] VITALS (10 sets, daily range): BP systolic 97–130; BP diastolic 58–87; PULSE 67–96; RESP 12–20; TEMP 36.7; O2SAT 96–100
--- NOTE | 2023-06-23 14:47 | ECG_ITS ---
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 Measurements Intervals [place] Rate: 98 P: 64 NM: 194 QRS: 55 QRSD: 82 T: -19 QT: 330 QTc: 421 Interpretive Statements SINUS RHYTHM WITH FREQUENT VENTRICULAR PREMATURE COMPLEXES NONSPECIFIC T-WAVE ABNORMALITY Compared to ECG 03/11/2023 21:05:09 No significant changes Electronically Signed On 06-24-2023 0:07:13 CDT by Angel Wiley M.D. [email or web address]
--- NOTE | 2023-06-23 14:47 | XR_ITS ---
WS: [id number] Portable AP upright chest, 06/23/2023 Clinical Data: shortness of breath Comparison: Portable chest, 03/11/2023 Findings: No nodules, masses or effusions are seen. The heart is normal. The pulmonary vascularity is not increased. No pneumonia or pneumothorax is seen. The aortic arch shows mild tortuosity. There ar e monitor leads on the chest wall. There is osteoarthritis of the right shoulder joint. XR/XR chest 1V [id number] Impression: Atherosclerosis.
--- NOTE | 2023-06-23 15:06 | PC.NURSE ---
Pt on bedside campus monitor
[2023-06-23 15:14] LABS: Basophils % 0.3 %; Eosinophils % 0.2 %; Lymphocytes # 0.9 10^3/uL (0.8-4.8); Lymphocytes % 14.1 %; Mean Corpuscular HGB Conc 34.2 g/dL (30-55); Mean Corpuscular Hemoglobin 31.7 pg (27-33); Mean Corpuscular Volume 92.6 fl (82-101); Monocytes # 0.7 10^3/uL (0.2-0.9); Monocytes % 11.2 %; Neutrophils # 4.81 10^3/uL (1.8-7.7); Neutrophils % 73.9 %; Nucleated Red Blood Cells % 0 %; Platelet Count 146 10^3/cmm (157-399); Red Blood Count 4.86 10^6/uL (3.85-5.65); Red Cell Distribution Width 13.6 % (12.1-15.1); White Blood Count 6.51 10^3/uL (3.29-11.43)
--- NOTE | 2023-06-23 15:29 | ED_ITS ---
HPI - SOB/Dyspnea 2 General: Chief Complaint: Shortness of Breath/Dyspnea Stated Complaint: sob,vomiting Time Seen by Provider: 06/23/23 14:57 History of Present Illness: HPI Narrative: 72-year-old man with a history of hypert ension, coronary artery disease status post stents and congestive heart failure with an EF of 31 and planned defibrillator placement in the near future, hypertension, who presents the emergency room with shortness of breath. He said all night last night when he was laying in bed he could not lay flat or he would lose his breath. He does not have any swelling in his legs at this time. No abdominal swelling. He said he had some nausea he thought from motion sickness from the car ride and had 1 episode of vomiting and felt better. No abdominal pain. No chest pain. No altered mental status. No focal motor deficits. No fevers. No cough. Review of Systems 2 Narrative: Constitutional symptoms: Negative except as documented in HPI. Skin symptoms: Negative except as documented in HPI. Eye symptoms: Negative except as documented in HPI. ENMT symptoms: Negative except as documented in HPI. Respiratory symptoms: Negative except as documented in HPI. Cardiovascular symptoms: Negative except as documented in HPI. Gastrointestinal symptoms: Negative except as documented in HPI. Genitourinary symptoms: Negative except as documented in HPI. Musculoskeletal symptoms: Negative except as documented in HPI. Neurologic symptoms: Negative except as documented in HPI. Psychiatric symptoms: Negative except as documented in HPI. Endocrine symptoms: Negative except as documented in HPI. PFSH ED 2 PFSH: Medical History Marijuana use Atherosclerosis of coronary artery Chronic constipation Dyslipidemia Benign essential HTN Hypokalemia Atherosclerotic heart disease of [place] coronary artery with unstable angina pectoris Coronary artery disease Surgical History H/O right coronary artery stent placement Family History Father CAD (coronary artery disease) Other Adopted Denies family history of Diabetes Clotting disorder Dementia Suicide Anesthesia complication Bleeding disorder Lung disease Stroke Social History Smoking and tobacco/nicotine status: former use of tobacco/nicotine Alcohol intake: current Alcohol intake frequency: holidays/special occasions only Alcohol type: beer Substance/Drug Use: current Household members: spouse Housing: House Marital status: Current occupational status: retired Physical Exam 2 Narrative: EXAM NARRATIVE: General: Alert, no acute distress. Skin: Warm, dry. Head: Normocephalic, atraumatic. Neck: Supple, trachea midline. Eye: Extraocular movements are intact. Ears, nose, mouth and throat: mucosa moist. Cardiovascular: Regular, Normal peripheral perfusion. Respiratory: Lungs are clear to auscultation, respirations are non-labored, breath sounds are equal, Symmetrical chest wall expansion. Gastrointestinal: Soft, Nontender, Non distended, Normal bowel sounds. Musculoskeletal: Normal ROM, no deformity. Neurological: Alert and oriented, No focal neurological deficit observed. Psychiatric: Cooperative, appropriate mood & affect. Course 2 Vital Signs: Vital signs: Vital Signs Temperature 98.1 F 06/23/23 14:43 Pulse Rate 96 06/23/23 18:08 Respiratory Rate 20 H 06/23/23 18:08 Blood Pressure 122/78 06/23/23 18:08 Pulse Oximetry 98 06/23/23 18:08 Oxygen Delivery Me thod Room Air 06/23/23 18:08 MDM - SOB/Dyspnea Medical Decision Making Differential diagnosis for patient with shortness of breath includes but is not limited to and based on the above HPI, review of systems and physical exam: Pneumonia. Bronchitis. Asthma or COPD with acute exacerbation. Acute coronary syndrome / OH. Pulmonary embolism. Anxiety. Congestive heart failure. Viral infections including influenza and Covid-19. Atrial fibrillation. Anxiety. Pleural effusion. Pneumothorax. Workup: Lab work, chest X-ray and EKG ordered to evaluate, rule in and rule out above pathologies Chest x-ray: No acute process. No infiltrate. No pneumothorax. No cardiomegaly. This was reviewed and interpreted by myself the ER physician. EKG: Time 1439 rate 98. Normal sinus rhythm, nonspecific T wave abnormality, no ectopy, normal [place] & QRS intervals, This was reviewed and interpreted by myself the ER physician at 1445. No change compared to previous EKG. Repeat EKG: Time 1650 rate 75. PVCs. Normal sinus rhythm, No ST-T changes, normal [place] & QRS intervals, This was reviewed and interpreted by myself the ER physician at 1655 Lab Review: Laboratory results were reviewed and interpreted by myself the emergency room physician. Lab work is notable for proBNP of 5800 which is up from 3 years ago but he has had coronary disease since then. His renal function is actually up but I think he is dry rather than fluid overloaded. On exam he does not have any swelling. No swelling on his abdomen. No cardiomegaly or pulmonary edema on his chest x- ray. I reviewed the patient's medical record. Reexamination: Patient remained stable. He is not having any oxygen requirements. No chest pain. No altered mental status. No increased work of breathing. Assessment and plan: Dyspnea - Discharged home - Discussed findings and plan with patient. Answered any questions. - All laboratory values were reviewed and interpreted personally by myself, the ER physician - All imaging was reviewed and interpreted personally by myself, the ER physician. - Evaluation and treatment of this problem were appropriate in the emergency setting Lab Data 06/23/23 15:03 06/23/23 15:03 Labs/Radiology: Radiology Impressions Chest X-Ray 06/23/23 14:47 Impression: Atherosclerosis. Laboratory Results WBC 6.51 10^3/uL (3.29-11.43) 06/23/23 15:03 RBC 4.86 10^6/uL (3.85-5.65) 06/23/23 15:03 Hgb 15.40 g/dL (11.27-16.99) 06/23/23 15:03 Hct 45.0 % (37-53) 06/23/23 15:03 MCV 92.6 fl (82-101) 06/23/23 15:03 MCH 31.7 pg (27-33) 06/23/23 15:03 MCHC 34.2 g/dL (30-55) 06/23/23 15:03 RDW 13.6 % (12.1-15.1) 06/23/23 15:03 Plt Count 146 10^3/cmm (157-399) L 06/23/23 15:03 MPV 11.0 fL (7.4-10.4) H 06/23/23 15:03 Neut % (Auto) 73.9 % 06/23/23 15:03 Lymph % (Auto) 14.1 % 06/23/23 15:03 Kem[place] % (Auto) 11.2 % 06/23/23 15:03 Eos % (Auto) 0.2 % 06/23/23 15:03 Baso % (Auto) 0.3 % 06/23/23 15:03 Neut # (Auto) 4.81 10^3/uL (1.8-7.7) 06/23/23 15:03 Lymph # (Auto) 0.9 10^3/uL (0.8-4.8) 06/23/23 15:03 Kemper # (Auto) 0.7 10^3/uL (0.2-0.9) 06/23/23 15:03 Eos # (Auto) 0.0 10^3/uL (0.0-0.8) 06/23/23 15:03 Baso # (Auto) 0.0 10^3/uL (0.0-0.1) 06/23/23 15:03 Nucleated RBC % (auto) 0 % 06/23/23 15:03 Nucleated RBCs # 0.0 /100WBC 06/23/23 15:03 Sodium 135 mmol/L (136-145) L 06/23/23 15:03 Potassium 4.7 mmol/L (3.5-5.1) 06/23/23 15:03 Chloride 104 mmol/L (98-107) 06/23/23 15:03 Carbon Dioxide 17 mmol/L (22-29) L 06/23/23 15:03 Anion Gap 18.7 (5-19) 06/23/23 15:03 BUN 24 mg/dL (8-23) H 06/23/23 15:03 Creatinine 1.6 mg/dL (0.7-1.2) H 06/23/23 15:03 GFR Calculation Not Reportable 06/23/23 15:03 Glucose 126 mg/dL (65-115) H 06/23/23 15:03 Calculated Osmolality 286 mOsm/kg (285-295) 06/23/23 15:03 Calcium 9.1 mg/dL (8.5-10.5) 06/23/23 15:03 Total Bilirubin 1.0 mg/dL (0.15-1.2) 06/23/23 15:03 AST 19 U/L (0-40) 06/23/23 15:03 ALT 13 U/L (0-41) 06/23/23 15:03 Alkaline Phosphatase 146 U/L (40-130) H 06/23/23 15:03 Troponin T Baseline 37 ng/L (0-15) H 06/23/23 15:03 Troponin T 120 Minute 36.14 ng/L (0-15) H 06/23/23 17:15 Delta Troponin T -0.86 ABS# (0-10) L 06/23/23 17:15 C-Reactive Protein 3.0 mg/L (0.0-4.9) 06/23/23 15:03 NT-Pro-B Natriuret Pep 5158 pg/mL (0-125) H 06/23/23 15:03 Total Protein 7.3 g/dL (6.6-8.7) 06/23/23 15:03 Albumin 4.1 g/dL (3.5-5.2) 06/23/23 15:03 Globulin 3.2 g/dL (1.3-4.6) 06/23/23 15:03 Adenovirus (PCR) Not detected (NOT DETECT) 06/23/23 15:10 C. pneumoniae DNA (PCR) Not detected (NOT DETECT) 06/23/23 15:10 Coronavirus 229E (PCR) Not detected (NOT DETECT) 06/23/23 15:10 Human Metapneumovir PCR Not detected (NOT DETECT) 06/23/23 15:10 Influenza A (H1) PCR Not detected (NOT DETECT) 06/23/23 15:10 Influ A (H1/09) PCR Not detected (NOT DETECT) 06/23/23 15:10 Influenza A (H3) PCR Not detected (NOT DETECT) 06/23/23 15:10 Influenza Type A (PCR) Not detected (NOT DETECT) 06/23/23 15:10 Influenza Type B (PCR) Not detected (NOT DETECT) 06/23/23 15:10 M. pneumoniae (PCR) Not detected (NOT DETECT) 06/23/23 15:10 Parainfluenza 1 (PCR) Not detected (NOT DETECT) 06/23/23 15:10 Parainfluenza 2 (PCR) Not detected (NOT DETECT) 06/23/23 15:10 Parainfluenza 3 (PCR) Not detected (NOT DETECT) 06/23/23 15:10 Parainfluenza 4 (PCR) Not detected (NOT DETECT) 06/23/23 15:10 RSV Type A (PCR) Not detected (NOT DETECT) 06/23/23 15:10 RSV Type B (PCR) Not detected (NOT DETECT) 06/23/23 15:10 Entero/Rhino (PCR) Not detected (NOT DETECT) 06/23/23 15:10 SARS-CoV-2 (PCR) Not detected (NOT DETECT) 06/23/23 15:10 All radiology interpretation(s) finalized by discharge Discharge Plan Discharge Patient Disposition: Home Clinical Impression: SOB (shortness of breath) Condition: Stable Prescriptions: No Action nitroglycerin 0.4 mg tablet, sublingual 0.4 mg sublingual Q5M PRN (Reason: Chest Pain) Qty: 30 0RF metoprolol tartrate 50 mg tablet 50 mg PO BID aspirin [Karli Low Dose Aspirin] 81 mg Tablet,Delayed Release (Dr/Ec) 81 mg PO QPM ketoconazole 2 % shampoo See Rx Instructions .ROUTE .COMPLEX Rx Instructions: Lather onto SCALP and brown two TO three times weekly. allow TO sit FIVE minutes before rinsing. clopidogrel 75 mg tablet 75 mg PO QPM magnesium oxide 400 mg (241.3 mg magnesium) tablet 400 mg PO BID lisinopril 10 mg tablet 10 mg PO QPM docusate sodium 250 mg capsule 250 mg PO QPM Discharge Orders: Discharge ED (Routine); Ordered 06/23/23 Ordered By: Piper Fowler Referrals: Nabeel Zarate MD [Primary Care Provider] - 4-7 days Discharge Diet: Usual diet Discharge Activity: Increase activity as tolerated Patient Instructions: Shortness of Breath (ED) Activity Restrictions/Additional Instructions: Thank you for choosing [facility] for your healthcare needs today. Please realize this is an emergency room and that we are providing you with a medical screening exam and this may not be complete and all inclusive of all the testing and or work up that you may need to determine your ailment or severity of your illness. You have been screened and evaluated and felt safe for discharge. Health conditions do change or evolve sometimes and as such it is important that you follow up with your Primary Doctor to be re checked, 3-5 days is a general good time frame for follow up. You are always welcome to return to the ED for re assessment if your symptoms are worsening or you have new concerns Coding Level of Care Code ED Bread Dumper for Taylor Rocha
[2023-06-23 15:30] LABS: Troponin(5th) Baseline 37 ng/L (0-15)
--- NOTE | 2023-06-23 15:36 | PC.PHAR ---
SPOUSE STATES PT UNABLE TO TOLERATE ANYTHING ON HIS STOMACH SO HAS NOT HAD ANY MEDICATIONS TODAY. 06/23/23
[2023-06-23 15:54] LABS: Alanine Aminotransferase 13 U/L (0-41); Albumin Level 4.1 g/dL (3.5-5.2); Alkaline Phosphatase 146 U/L (40-130); Aspartate Amino Transferase 19 U/L (0-40); Blood Urea Nitrogen 24 mg/dL (8-23); Calcium 9.1 mg/dL (8.5-10.5); Carbon Dioxide 17 mmol/L (22-29); Chloride 104 mmol/L (98-107); Globulin 3.2 g/dL (1.3-4.6); Glucose 126 mg/dL (65-115); NT Pro B Type Natriuretic Pept 5158 pg/mL (0-125); Osmolality Calculated 286 mOsm/kg (285-295); Sodium 135 mmol/L (136-145); Total Protein 7.3 g/dL (6.6-8.7)
[2023-06-23 15:55] LABS: Anion Gap 18.7 (5-19); Potassium 4.7 mmol/L (3.5-5.1)
--- NOTE | 2023-06-23 16:47 | ECG_ITS ---
[facility] Test Date: 2023-06-23 Pat Name: Jean Carlos Chavez Department: Room: Gender: Male Web Content Specialist: : 1950 Requested By: Piper Steward Order Number: [id number] Suraj MD: Angel Wiley M.D. Measurements Intervals [place] Rate: 75 P: 46 MO: 196 QRS: 41 QRSD: 82 T: -2 QT: 364 QTc: 409 Interpretive Statements SINUS RHYTHM WITH FREQUENT VENTRICULAR PREMATURE COMPLEXES NONSPECIFIC T-WAVE ABNORMALITY ABNORMAL RHYTHM ECG Compared to ECG 06/23/2023 14:39:13 No significant changes Electronically Signed On 06-24-2023 0:35:22 CDT by Angel Wiley M.D. [email or web address]
[2023-06-23 16:58] LABS: Adenovirus Not Detected (NOT DETECT); Chlamydia Pneumoniae Not Detected (NOT DETECT); Coronavirus 229E,HKU1,NL63,OC4 Not Detected (NOT DETECT); Human Metapneumovirus Not Detected (NOT DETECT); Human Rhinovirus/Enterovirus Not Detected (NOT DETECT); Influenza A Not Detected (NOT DETECT); Influenza A H1 Not Detected (NOT DETECT); Influenza A H1-2009 Not Detected (NOT DETECT); Influenza A H3 Not Detected (NOT DETECT); Influenza B Not Detected (NOT DETECT); Mycoplasma Pneumoniae Not Detected (NOT DETECT); Parainfluenza Virus Type 1 Not Detected (NOT DETECT); Parainfluenza Virus Type 2 Not Detected (NOT DETECT); Parainfluenza Virus Type 3 Not Detected (NOT DETECT); Parainfluenza Virus Type 4 Not Detected (NOT DETECT); Respiratory Syncytial Virus A Not Detected (NOT DETECT); Respiratory Syncytial Virus B Not Detected (NOT DETECT); SARS-COV-2 Not Detected (NOT DETECT)
[2023-06-23 17:42] LABS: Troponin 5 2HR 36.14 ng/L (0-15)
[2023-06-23 17:44] LABS: Troponin 5 2HR Delta -0.86 ABS# (0-10)
== END 2023-06-23 18:14 | disposition home or self-care (01) ==
PROVIDERS: Emergency Provider Emergency Medicine; PCP Family Medicine Adult Medicine
DX: R06.02 Shortness of breath (principal); Z20.822 Contact with and (suspected) exposure to COVID-19; I10 Essential (primary) hypertension; Z79.899 Other long term (current) drug therapy
CPT/HCPCS: 36415; 71045; 80053; 83880; 84484; 85025; 86140; 87486; 87581; 87633; 93005; 99285

== ENCOUNTER 2023-10-04 07:00 | Outpatient (CLI) | payer MEDICARE, SELFPAY | END 2023-10-04 07:01 | disposition home or self-care (01) | LOC: LAB 10-08 07:03 | PROVIDERS: PCP Family Medicine Adult Medicine; Visit Provider Clinical Nurse Specialist | DX: Z01.89 Encounter for other specified special examinations (principal) | CPT/HCPCS: 36415; 80048 ==

== ENCOUNTER 2023-10-18 14:01 | Outpatient (CLI) | payer MEDICARE, SELFPAY ==
[2023-10-18 15:28] LABS: Blood Urea Nitrogen 33 mg/dL (8-23); Calcium 8.9 mg/dL (8.5-10.5); Carbon Dioxide 20 mmol/L (22-29); Chloride 108 mmol/L (98-107); Glucose 108 mg/dL (65-115); Osmolality Calculated 294 mOsm/kg (285-295); Sodium 138 mmol/L (136-145)
== END 2023-10-18 14:02 | disposition home or self-care (01) ==
LOC: LAB 14:04
PROVIDERS: PCP Family Medicine Adult Medicine; Visit Provider Clinical Nurse Specialist
DX: I50.20 Unspecified systolic (congestive) heart failure (principal)
CPT/HCPCS: 80048

== ENCOUNTER 2023-11-29 15:02 | Outpatient (CLI) | payer MEDICARE, SELFPAY ==
[2023-11-29 15:37] LABS: Chol HDL Ratio 5.65 mg/dL (1.0-5.00); Cholesterol 147 mg/dL (0-200); HDL Cholesterol 26 mg/dL (60-100); LDL Cholesterol Calculated 70 mg/dL (50-129); LDL HDL Ratio 2.69 RATIO (0.00-3.22); Triglycerides 253 mg/dL (0-150)
== END 2023-11-29 15:03 | disposition home or self-care (01) ==
LOC: LAB 15:05
PROVIDERS: PCP Family Medicine Adult Medicine; Visit Provider Clinical Nurse Specialist
DX: I50.20 Unspecified systolic (congestive) heart failure (principal)
CPT/HCPCS: 36415; 80061

== ENCOUNTER 2024-01-03 14:26 | Outpatient (CLI) | payer MEDICARE, SELFPAY ==
[2024-01-03 15:17] LABS: Anion Gap 13.8 (5-19); Blood Urea Nitrogen 21 mg/dL (8-23); Calcium 9.6 mg/dL (8.5-10.5); Carbon Dioxide 23 mmol/L (22-29); Chloride 107 mmol/L (98-107); Glucose 103 mg/dL (65-115); Osmolality Calculated 291 mOsm/kg (285-295); Potassium 4.8 mmol/L (3.5-5.1); Sodium 139 mmol/L (136-145)
== END 2024-01-03 14:27 | disposition home or self-care (01) ==
LOC: LAB 14:30
PROVIDERS: PCP Family Medicine Adult Medicine; Visit Provider Clinical Nurse Specialist
DX: I50.20 Unspecified systolic (congestive) heart failure (principal)
CPT/HCPCS: 36415; 80048

== ENCOUNTER → 2024-01-17 15:01 | Outpatient (BNVA) | payer MEDICARE, SELFPAY | PROVIDERS: PCP Family Medicine Adult Medicine; Referring Provider Clinical Nurse Specialist; Visit Provider Internal Medicine Cardiovascular Disease | DX: R00.1 Bradycardia, unspecified (principal) | CPT/HCPCS: 93005 ==

== ENCOUNTER 2024-01-25 15:45 | Emergency (ER) | payer MEDICARE, SELFPAY ==
--- NOTE | 2024-01-25 15:50 | ECG_ITS ---
[facility] Test Date: 2024-01-25 Pat Name: Jean Carlos Chavez Department: Room: Gender: Male Correctional Classification Counselor: : 1950 Requested By: Matthew Allen Order Number: [id number] Ruelas MD: Angel Wiley M.D. Measurements Intervals [place] Rate: 100 P: 57 SC: 200 QRS: 46 QRSD: 87 T: 60 QT: 328 QTc: 425 Interpretive Statements SINUS TACHYCARDIA WITH FREQUENT VENTRICULAR PREMATURE COMPLEXES NONSPECIFIC T-WAVE ABNORMALITY ABNORMAL RHYTHM ECG Compared to ECG 01/17/2024 15:06:36 T-wave abnormality now present Sinus rhythm no longer present Electronically Signed On 01-25-2024 21:22:22 IP ARCHITECT by Angel Wiley M.D. [email or web address]
[2024-01-25 16:02] VITALS: BP 110/62; PULSE 68; RESP 16; TEMP 36.7; O2SAT 98; BMI 23.7
[2024-01-25 16:09] LABS: Glucose Point of Care 127 mg/dL (70-110)
[2024-01-25 18:17] LABS: Basophils # 0.1 10^3/uL (0.0-0.1); Basophils % 0.5 %; Eosinophils # 0.1 10^3/uL (0.0-0.8); Eosinophils % 0.6 %; Hematocrit 48.9 % (37-53); Lymphocytes # 1.9 10^3/uL (0.8-4.8); Lymphocytes % 19.1 %; Mean Corpuscular HGB Conc 33.5 g/dL (30-55); Mean Corpuscular Hemoglobin 31.5 pg (27-33); Mean Corpuscular Volume 93.9 fl (82-101); Monocytes # 0.6 10^3/uL (0.2-0.9); Monocytes % 5.8 %; Neutrophils # 7.35 10^3/uL (1.8-7.7); Neutrophils % 73.7 %; Nucleated Red Blood Cells % 0 %; Platelet Count 164 10^3/cmm (157-399); Red Blood Count 5.21 10^6/uL (3.85-5.65); White Blood Count 9.98 10^3/uL (3.29-11.43)
--- NOTE | 2024-01-25 18:19 | XRR_ITS ---
PROCEDURE INFORMATION: Exam: XR Chest Exam date and time: 01/25/2024 6:38 PM Age: 73 years old Clinical indication: Wheezing and other: Syncope; Prior surgery; Surgery date: 6+ months; Surgery type: Heart monitor TECHNIQUE: Imaging protocol: Radiologic exam of the chest. Views: 1 view. COMPARISON: CR XR chest 1V [id number] 06/23/2023 3:07 PM FINDINGS: Lungs: Unremarkable. No consolidation. Pleural spaces: Unremarkable. No pleural effusion. No pneumothorax. Heart/Mediastinum: Heart monitor projects over the left chest wall. Bones/joints: Unremarkable. XR/XR chest 1V portable [id number] IMPRESSION: No acute findings.
[2024-01-25] MEDS: meclizine 25 mg tablet 50 MG PO (18:44)
[2024-01-25 18:46] LABS: Alanine Aminotransferase 18 U/L (0-41); Albumin Level 4.8 g/dL (3.5-5.2); Alkaline Phosphatase 119 U/L (40-130); Aspartate Amino Transferase 17 U/L (0-40); Blood Urea Nitrogen 23 mg/dL (8-23); Calcium 10.2 mg/dL (8.5-10.5); Carbon Dioxide 20 mmol/L (22-29); Chloride 105 mmol/L (98-107); Creatinine Clr Calc Pharmacy 61.5685; Globulin 3.2 g/dL (1.3-4.6); Glucose 111 mg/dL (65-115); Osmolality Calculated 286 mOsm/kg (285-295); Sodium 136 mmol/L (136-145); Total Bilirubin 1.2 mg/dL (0.15-1.2)
--- NOTE | 2024-01-25 18:48 | CTR_ITS ---
PROCEDURE INFORMATION: Exam: CT Head Without Contrast Exam date and time: 01/25/2024 6:56 PM Age: 73 years old Clinical indication: Syncope and collapse; Additional info: Near syncope TECHNIQUE: Imaging protocol: Computed tomography of the head without contrast. Radiation optimization: All CT scans at this facility use at least one of these dose optimization techniques: automated exposure control; mA and/or kV adjustment per patient size (includes targeted exams where dose is matched to clinical indication); or iterative reconstruction. COMPARISON: No relevant prior studies available. RADIATION DOSE METRICS: Total DLP (mGy-cm): 1054.88 FINDINGS: Brain: No hemorrhage. No edema. Moderate diffuse cerebral atrophy. No significant white matter disease. No mass effect. Cerebral ventricles: No ventriculomegaly. Paranasal sinuses: Visualized sinuses are unremarkable. No fluid levels. Mastoid air cells: Visualized mastoid air cells are well aerated. Bones: Unremarkable. No acute fracture. Soft tissues: Unremarkable. CT/CT head wo con* [id number] IMPRESSION: No acute intracranial abnormality.
--- NOTE | 2024-01-25 18:49 | ED_ITS ---
HPI - Syncope 2 General: Chief Complaint: Syncope Stated Complaint: passing out (30sec), Time Seen by Provider: 01/25/24 18:20 Source: patient Mode of arrival: ambulatory Limitations: no limitations History of Present Illness: 73-year-old male states that he had epis ode today where he felt like he had tunnel vision and then felt lightheaded and felt like he is going to pass out. He states he did not fully pass out. Multiple episodes where he and almost passed out. He denies any difficulty walking he denies any vertigo or dizziness to me denies headache or chest pain he states he had episodes like this in the past as well. No vomiting or diarrhea Associated symptoms: Deny abdominal pain, chest pain, fever(s), headache(s) or nausea Related Data Home Medications Medication Instructions Recorded Confirmed aspirin 81 mg tablet,delayed 81 mg PO QPM 10/07/19 06/28/23 release (Karli Low Dose Aspirin) ketoconazole 2 % shampoo See Rx Instructions .Route .COMPLEX 06/23/23 06/28/23 lisinopril 10 mg tablet 10 mg PO QPM 06/23/23 06/28/23 magnesium oxide 400 mg (241.3 mg 400 mg PO BID 06/23/23 06/28/23 magnesium) tablet Previous Rx's Medication Instructions Recorded nitroglycerin 0.4 mg sublingual 0.4 mg sublingual Q5M PRN Chest 04/26/22 tablet Pain #30 tabs clopidogrel 75 mg tablet See Rx Instructions .Route 08/23/23 .COMPLEX #100 tabs metoprolol tartrate 50 mg tablet See Rx Instructions .Route 09/05/23 .COMPLEX #100 tabs docusate sodium 250 mg capsule See Rx Instructions .Route 12/01/23 (Stool Softener) .COMPLEX #60 ea Allergies Allergy/AdvReac Type Severity Reaction Status Date / Time hydrocodone Allergy ADR-Confusi Verified 01/25/24 16:13 on Jesfxsd-GXF-WyY Reductase AdvReac muscle pain Verified 01/25/24 16:13 Inhibitor [Jwfanzd-Bjv-Jcz Reductase Inhibitor] Review of Systems 2 Const: Denies: fever(s), chills, body aches or change in appetite Eyes: Denies: blurry vision or eye discomfort ENMT: Denies: throat pain or dental pain Card: Reports: pre-syncope; Denies: chest pain Resp: Denies: dyspnea GI: Denies: abdominal pain, nausea, vomiting or diarrhea Musc: Denies: neck pain or back pain Skin/Breast: Denies: rash Neuro: Denies: headache(s), numbness in extremities, weakness in extremities, difficulty walking, dizziness or confusion PFSH ED 2 PFSH: Medical History (Updated 01/25/24 @ 20:25 by Matthew Allen MD) Systemic viral illness Marijuana use Atherosclerosis of coronary artery Chronic constipation Dyslipidemia Benign essential HTN Hypokalemia Atherosclerotic heart disease of [place] coronary artery with unstable angina pectoris Coronary artery disease Surgical History H/O right coronary artery stent placement Family History Father CAD (coronary artery disease) Other Adopted Denies family history of Diabetes Clotting disorder Dementia Suicide Anesthesia complication Bleeding disorder Lung disease Stroke Social History Smoking and tobacco/nicotine status: former use of tobacco/nicotine Alcohol intake: current Alcohol intake frequency: holidays/special occasions only Alcohol type: beer Substance/Drug Use: current Household members: spouse Housing: House Marital status: Current occupational status: retired Physical Exam 2 Const: COMMON NORMALS: no acute distress, patient oriented x3 and healthy appearing HENMT: COMMON NORMALS: normocephalic and atraumatic HEAD & SCALP: n ormocephalic and atraumatic Eye: COMMON NORMALS: conjunctivae normal CONJUNCTIVA: Yes conjunctivae normal Neck/C-Spine: COMMON NORMALS: full ROM and supple Chest: COMMONS NORMALS: normal inspection of the chest Resp: COMMON NORMALS: normal respiratory effort, No retractions, No use of accessory muscles and clear to auscultation bilaterally AUSCULTATION: clear to auscultation bilaterally Cardio: COMMON NORMALS: regular rate, regular rhythm and No murmurs present (Cardio) RATE: regular rate RHYTHM: regular rhythm Extremity: COMMON NORMALS: normal to inspection and full ROM Neuro: COMMON NORMALS: patient oriented x3, moves all extremities and no focal motor deficits CRANIAL NERVES: Yes CN normal except as noted SPEECH: s peech normal GAIT: Yes Normal gait present Psych: COMMON NORMALS: mental status grossly normal, Normal thought process present and cooperative THOUGHT PROCESS: Normal thought process present Skin: COMMON NORMALS: no rashes or lesions noted and no wounds GENERAL SKIN EXAM: no rashes or lesions noted Course 2 Vital Signs: Vital signs: Vital Signs Temperature 98.1 F 01/25/24 16:02 Pulse Rate 68 01/25/24 16:02 Respiratory Rate 16 01/25/24 16:02 Blood Pressure 110/62 01/25/24 16:02 Pulse Oximetry 98 01/25/24 16:02 Oxygen Delivery Me thod Room Air 01/25/24 16:02 MDM - Syncope Medical Decision Making Patient presents for near syncopal episode he has been well-appearing here orthostatics were normal he is asymptomatic here blood work head CT are normal he is stable for discharge follow-up with PCP return if worsening he understands agrees to plan Medical Records I reviewed the patient's medical records. Lab Data I reviewed the patient's lab results. 01/25/24 17:55 01/25/24 17:55 Radiology Impressions Chest X-Ray 01/25/24 18:19 IMPRESSION: No acute findings. ADDENDUM: 01/25/241948 No cardiomegaly. Head CT 01/25/24 18:48 IMPRESSION: No acute intracranial abnormality. Laboratory Results WBC 9.98 10^3/uL (3.29-11.43) 01/25/24 17:55 RBC 5.21 10^6/uL (3.85-5.65) 01/25/24 17:55 Hgb 16.40 g/dL (11.27-16.99) 01/25/24 17:55 Hct 48.9 % (37-53) 01/25/24 17:55 MCV 93.9 fl (82-101) 01/25/24 17:55 MCH 31.5 pg (27-33) 01/25/24 17:55 MCHC 33.5 g/dL (30-55) 01/25/24 17:55 RDW 13.0 % (12.1-15.1) 01/25/24 17:55 Plt Count 164 10^3/cmm (157-399) 01/25/24 17:55 MPV 11.0 fL (7.4-10.4) H 01/25/24 17:55 Neut % (Auto) 73.7 % 01/25/24 17:55 Lymph % (Auto) 19.1 % 01/25/24 17:55 [place] % (Auto) 5.8 % 01/25/24 17:55 Eos % (Auto) 0.6 % 01/25/24 17:55 Baso % (Auto) 0.5 % 01/25/24 17:55 Neut # (Auto) 7.35 10^3/uL (1.8-7.7) 01/25/24 17:55 Lymph # (Auto) 1.9 10^3/uL (0.8-4.8) 01/25/24 17:55 [place] # (Auto) 0.6 10^3/uL (0.2-0.9) 01/25/24 17:55 Eos # (Auto) 0.1 10^3/uL (0.0-0.8) 01/25/24 17:55 Baso # (Auto) 0.1 10^3/uL (0.0-0.1) 01/25/24 17:55 Nucleated RBC % (auto) 0 % 01/25/24 17:55 Nucleated RBCs # 0.0 /100WBC 01/25/24 17:55 Sodium 136 mmol/L (136-145) 01/25/24 17:55 Potassium 4.0 mmol/L (3.5-5.1) 01/25/24 17:55 Chloride 105 mmol/L (98-107) 01/25/24 17:55 Carbon Dioxide 20 mmol/L (22-29) L 01/25/24 17:55 Anion Gap 15.0 (5-19) 01/25/24 17:55 BUN 23 mg/dL (8-23) 01/25/24 17:55 Creatinine 1.2 mg/dL (0.7-1.2) 01/25/24 17:55 GFR Calculation Not Reportable 01/25/24 17:55 Glucose 111 mg/dL (65-115) 01/25/24 17:55 POC Glucose 127 mg/dL (70-110) H 01/25/24 16:05 Calculated Osmolality 286 mOsm/kg (285-295) 01/25/24 17:55 Calcium 10.2 mg/dL (8.5-10.5) 01/25/24 17:55 Total Bilirubin 1.2 mg/dL (0.15-1.2) 01/25/24 17:55 AST 17 U/L (0-40) 01/25/24 17:55 ALT 18 U/L (0-41) 01/25/24 17:55 Alkaline Phosphatase 119 U/L (40-130) 01/25/24 17:55 Total Protein 8.0 g/dL (6.6-8.7) 01/25/24 17:55 Albumin 4.8 g/dL (3.5-5.2) 01/25/24 17:55 Globulin 3.2 g/dL (1.3-4.6) 01/25/24 17:55 All radiology interpretation(s) finalized by discharge EKG Data EKG 1: I personally reviewed and interpreted this EKG as follows: EKG interpretation date: 01/25/24 EKG interpretation time: 16:07 Interpretation: sinus tach hr [address] elevation qrs 87 qtc 385 Discharge Plan Discharge Patient Disposition: Home Clinical Impression: Near syncope Condition: Stable Prescriptions: No Action nitroglycerin 0.4 mg tablet, sublingual 0.4 mg sublingual Q5M PRN (Reason: Chest Pain) Qty: 30 0RF clopidogrel 75 mg tablet See Rx Instructions .ROUTE .COMPLEX Qty: 100 3RF Dose Instruction: TAKE 1 TABLET BY MOUTH DAILY Rx Instructions: TAKE 1 TABLET BY MOUTH DAILY metoprolol tartrate 50 mg tablet See Rx Instructions .ROUTE .COMPLEX Qty: 100 3RF Dose Instruction: TAKE ONE-HALF TABLET BY MOUTH TWICE DAILY Rx Instructions: TAKE ONE-HALF TABLET BY MOUTH TWICE DAILY docusate sodium [Stool Softener] 250 mg capsule See Rx Instructions .ROUTE .COMPLEX Qty: 60 3RF Dose Instruction: take 1 capsule BY MOUTH TWICE DAILY FOR CONSTIPATION Rx Instructions: take 1 capsule BY MOUTH TWICE DAILY FOR CONSTIPATION aspirin [Karli Low Dose Aspirin] 81 mg Tablet,Delayed Release (Dr/Ec) 81 mg PO QPM ketoconazole 2 % shampoo See Rx Instructions .ROUTE .COMPLEX Rx Instructions: Lather onto SCALP and brown two TO three times weekly. allow TO sit FIVE minutes before rinsing. magnesium oxide 400 mg (241.3 mg magnesium) tablet 400 mg PO BID lisinopril 10 mg tablet 10 mg PO QPM Discharge Orders: Discharge ED (Routine); Ordered 01/25/24 Ordered By: Matthew Allen Referrals: Nabeel Zarate MD [Primary Care Provider] - 4-7 days Discharge Diet: Advance as tolerated Discharge Activity: Resume usual activity Patient Instructions: Near Syncope (ED) Coding Level of Care Code ED Travel Registered Nurse Nicu for Taylor Rocha
[2024-01-25 20:17] VITALS: BP 107/72; PULSE 79; RESP 15; O2SAT 97
[2024-01-25 20:30] VITALS: BP 122/74; PULSE 79; RESP 17; O2SAT 97
[2024-01-25 21:01] VITALS: BP 112/69; PULSE 70; O2SAT 99
== END 2024-01-25 21:03 | disposition home or self-care (01) ==
PROVIDERS: Emergency Provider Emergency Medicine; PCP Family Medicine Adult Medicine
DX: R55 Syncope and collapse (principal); Z79.02 Long term (current) use of antithrombotics/antiplatelets; Z79.82 Long term (current) use of aspirin; Z87.891 Personal history of nicotine dependence; I25.110 Atherosclerotic heart disease of native coronary artery with unstable angina pectoris; E78.5 Hyperlipidemia, unspecified; I10 Essential (primary) hypertension
CPT/HCPCS: 36415; 36416; 70450; 71045; 80053; 82962; 85025; 93005; 99285; J8597

== ENCOUNTER 2024-02-18 06:21 | Inpatient (IN) | payer MEDICARE, SELFPAY ==
[2024-02-18] VITALS (131 sets, daily range): BP systolic 87–143; BP diastolic 27–99; PULSE 64–171; RESP 7–35; TEMP 36.3–36.6; O2SAT 89–100; BMI 26.4
--- NOTE | 2024-02-18 06:22 | ECG_ITS ---
[facility] Test Date: 2024-02-18 Pat Name: Jean Carlos Chavez Department: Room: Gender: Male Sander Machine: : 1950 Requested By: Almas Steward Order Number: [id number] Reading MD: BOOGIE KING Measurements Intervals [place] Rate: 86 P: 39 [place]: 194 QRS: 41 QRSD: 101 T: 58 QT: 386 QTc: 462 Interpretive Statements SINUS RHYTHM WITH FREQUENT VENTRICULAR PREMATURE COMPLEXES IN A BIGEMINAL PATTERN NONSPECIFIC ST & T-WAVE ABNORMALITY ABNORMAL RHYTHM ECG Compared to ECG 01/25/2024 16:07:28 Sinus tachycardia no longer present T-wave abnormality still present Electronically Signed On 02-18-2024 18:40:10 SMOKE JUMPER by BOOGIE KING [email or web address]
--- NOTE | 2024-02-18 06:22 | XRR_ITS ---
PROCEDURE INFORMATION: Exam: XR Chest Exam date and time: 02/18/2024 6:25 AM Age: 73 years old Clinical indication: Chest pressure; Prior surgery; Surgery date: 6+ months; Surgery type: Coronary stent; Patient HX: Defibrillator fired. C/O chest pain. Wearing life vest. ; Additional info: Dyspnea/cough TECHNIQUE: Imaging protocol: Radiologic exam of the chest. Views: 1 view. COMPARISON: CR (CHEST, ) 01/25/2024 6:38 PM FINDINGS: Tubes, catheters and devices: Pacer pads noted. Lungs: No infiltrate. Pleural spaces: Unremarkable. No pleural effusion. No pneumothorax. Heart/Mediastinum: There is mild cardiomegaly. Bones/joints: Unremarkable. XR/XR chest 1V portable [id number] IMPRESSION: No acute findings.
--- NOTE | 2024-02-18 06:23 | ED_ITS ---
HPI - General Adult 2 General: Chief complaint: Arrhythmia/Palpitations Stated complaint: clem macario fired Time Seen by Provider: 02/18/24 06:22 History of Present Illness: 73-year-old male with a history of known coronary artery disease with multiple previous stents in the past. Approximately a week ago he was at [facility] into being transferred to [place] and they were looking at putting in a ICD. However he was found to get a tooth infection so they put that off until the tooth issue was cleared up. He was discharged home on a LifeVest. Last echocardiogram we have on chart he was at approximately 30% EF. Last night he was walking through the snow towards his shop and the LifeVest alarmed and alarmed several times after this was around 1130 last night this morning he called EMS because of this he is not having any symptoms now. No chest pain. He is disconnected the ICD. EMS brought him and attached to a monitor. He denies any other recent illness. Associated symptoms: Deny chest pain, dyspnea or rash Related Data Home Medications Medication Instructions Recorded Confirmed aspirin 81 mg tablet,delayed 81 mg PO QPM 10/07/19 02/18/24 release (Karli Low Dose Aspirin) ketoconazole 2 % shampoo See Rx Instructions .Route .COMPLEX 06/23/23 02/18/24 amiodarone 200 mg tablet 200 mg PO BID 02/18/24 02/18/24 ascorbic acid (vitamin C) 1,000 mg 1,000 mg PO DAILY 02/18/24 02/18/24 tablet (Vitamin C) [place] 325 mg tablet 325 mg PO DAILY PRN constipation 02/18/24 02/18/24 clopidogrel 75 mg tablet 75 mg PO DAILY 02/18/24 02/18/24 docusate sodium 250 mg capsule 250 mg PO BID PRN constipation 02/18/24 02/18/24 (Stool Softener) empagliflozin 10 mg tablet See Rx Instructions .Route .COMPLEX 02/18/24 02/18/24 (Jardiance) ezetimibe 10 mg tablet 10 mg PO DAILY 02/18/24 02/18/24 ibuprofen 200 mg tablet (Advil) 600 mg PO Q6H PRN Pain 02/18/24 02/18/24 melatonin 10 mg tablet 10 mg PO BEDTIME PRN Sleep 02/18/24 02/18/24 metoprolol succinate 50 mg 50 mg PO DAILY 02/18/24 02/18/24 tablet,extended release 24 hr sacubitril 24 mg-valsartan 26 mg 1 tab PO BID 02/18/24 02/18/24 tablet (Entresto) spironolactone 25 mg tablet 12.5 mg PO DAILY 02/18/24 02/18/24 Previous Rx's Medication Instructions Recorded nitroglycerin 0.4 mg sublingual 0.4 mg sublingual Q5M PRN Chest 04/26/22 tablet Pain #30 tabs Allergies Allergy/AdvReac Type Severity Reaction Status Date / Time hydrocodone Allergy ADR-Confusi Verified 01/25/24 16:13 on Rmjuvjn-QHT-JyS Reductase AdvReac muscle pain Verified 01/25/24 16:13 Inhibitor [Wpiovjv-Ivw-Sln Reductase Inhibitor] Review of Systems 2 Const: Denies: fever(s) or chills Card: Denies: chest pain Resp: Denies: dyspnea GI: Denies: abdominal pain : Denies: dysuria, urinary frequency or urinary urgency Musc: Denies: neck pain or back pain Skin/Breast: Denies: rash PFSH ED 2 PFSH: Medical History Systemic viral illness Marijuana use Atherosclerosis of coronary artery Chronic constipation Dyslipidemia Benign essential HTN Hypokalemia Atherosclerotic heart disease of [place] coronary artery with unstable angina pectoris Coronary artery disease Surgical History H/O right coronary artery stent placement Family History Father CAD (coronary artery disease) Other Adopted Denies family history of Diabetes Clotting disorder Dementia Suicide Anesthesia complication Bleeding disorder Lung disease Stroke Social History Smoking and tobacco/nicotine status: former use of tobacco/nicotine Alcohol intake: current Alcohol intake frequency: holidays/special occasions only Alcohol type: beer Substance/Drug Use: current Household members: spouse Housing: House Marital status: Current occupational status: retired Physical Exam 2 Const: COMMON NORMALS: no acute distress GENERAL APPEARANCE: cooperative and comfortable ORIENTATION/CONSCIOUSNESS: Yes awake, Yes oriented to person, Yes oriented to place and Yes oriented to time HENMT: COMMON NORMALS: normocephalic, atraumatic and hearing grossly normal bilaterally HEAD & SCALP: normocephalic and atraumatic Resp: COMMON NORMALS: normal respiratory effort, No retractions, No use of accessory muscles and clear to auscultation bilaterally AUSCULTATION: clear to auscultation bilaterally Cardio: COMMON NORMALS: regular rate, regular rhythm and No murmurs present (Cardio) RATE: regular rate RHYTHM: regular rhythm GI: COMMON NORMALS: Soft to palpation and No hepatosplenomegaly present A USCULTATION: Yes normoactive bowel sounds PALPATION: Yes Soft to palpation, No Tenderness to palpation present (GI), No Guarding due to palpation present (GI) and Yes No hepatosplenomegaly present Extremity: COMMON NORMALS: normal to inspection, capillary refill normal, no clubbing, cyanosis or edema, no calf tenderness and no pedal edema Neuro: SENSORIUM/ORIENTATION: Yes oriented to person, Yes oriented to place and Yes oriented to time Skin: COMMON NORMALS: no rashes or lesions noted GENERAL SKIN EXAM: no rashes or lesions noted Course 2 Vital Signs: Vital signs: Vital Signs Temperature 97.9 F 02/18/24 09:25 Pulse Rate 76 02/18/24 12:00 Respiratory Rate 16 02/18/24 12:00 Blood Pressure 99/56 02/18/24 12:00 Pulse Oximetry 97 02/18/24 12:00 Oxygen Delivery Me thod Room Air 02/18/24 10:28 [facility] - General Adult Medical Decision Making Several runs of nonsustained V. tach. Patient was loaded with amiodarone and started on a drip. No further runs of V. tach his rate remains somewhat bradycardic but his blood pressure was adequate. He is not having any chest pain or discomfort. No recent fever sweats or chills. Admit patient to ICU cardiology consult Medical Records I reviewed the patient's medical records. Lab Data I reviewed the patient's lab results. 02/18/24 06:18 02/18/24 06:18 Radiology Impressions Chest X-Ray 02/18/24 06:22 IMPRESSION: No acute findings. Laboratory Results WBC 11.88 10^3/uL (3.29-11.43) H 02/18/24 06:18 RBC 5.59 10^6/uL (3.85-5.65) 02/18/24 06:18 Hgb 17.40 g/dL (11.27-16.99) H 02/18/24 06:18 Hct 51.9 % (37-53) 02/18/24 06:18 MCV 92.8 fl (82-101) 02/18/24 06:18 MCH 31.1 pg (27-33) 02/18/24 06:18 MCHC 33.5 g/dL (30-55) 02/18/24 06:18 RDW 12.8 % (12.1-15.1) 02/18/24 06:18 Plt Count 190 10^3/cmm (157-399) 02/18/24 06:18 MPV 11.4 fL (7.4-10.4) H 02/18/24 06:18 Neut % (Auto) 69.8 % 02/18/24 06:18 Lymph % (Auto) 22.9 % 02/18/24 06:18 [place] % (Auto) 5.9 % 02/18/24 06:18 Eos % (Auto) 0.7 % 02/18/24 06:18 Baso % (Auto) 0.4 % 02/18/24 06:18 Neut # (Auto) 8.30 10^3/uL (1.8-7.7) H 02/18/24 06:18 Lymph # (Auto) 2.7 10^3/uL (0.8-4.8) 02/18/24 06:18 [place] # (Auto) 0.7 10^3/uL (0.2-0.9) 02/18/24 06:18 Eos # (Auto) 0.1 10^3/uL (0.0-0.8) 02/18/24 06:18 Baso # (Auto) 0.1 10^3/uL (0.0-0.1) 02/18/24 06:18 Nucleated RBC % (auto) 0 % 02/18/24 06:18 Nucleated RBCs # 0.0 /100WBC 02/18/24 06:18 PT 13.20 SECONDS (12.1-14.9) 02/18/24 06:18 INR 0.94 (0.8-1.2) 02/18/24 06:18 D-Dimer 19.56 ug/mLFEU (0-0.59) H 02/18/24 06:18 Sodium 140 mmol/L (136-145) 02/18/24 06:18 Potassium 3.9 mmol/L (3.5-5.1) 02/18/24 06:18 Chloride 101 mmol/L (98-107) 02/18/24 06:18 Carbon Dioxide 18 mmol/L (22-29) L 02/18/24 06:18 Anion Gap 24.9 (5-19) H 02/18/24 06:18 BUN 21 mg/dL (8-23) 02/18/24 06:18 Creatinine 1.6 mg/dL (0.7-1.2) H 02/18/24 06:18 GFR Calculation Not Reportable 02/18/24 06:18 Glucose 104 mg/dL (65-115) 02/18/24 06:18 Calculated Osmolality 293 mOsm/kg (285-295) 02/18/24 06:18 Lactic Acid 3.2 mmol/L (0.5-2.2) H 02/18/24 06:18 Calcium 10.6 mg/dL (8.5-10.5) H 02/18/24 06:18 Magnesium 2.1 mg/dL (1.7-2.3) 02/18/24 06:18 Total Bilirubin 1.3 mg/dL (0.15-1.2) H 02/18/24 06:18 AST 32 U/L (0-40) 02/18/24 06:18 ALT 29 U/L (0-41) 02/18/24 06:18 Alkaline Phosphatase 150 U/L (40-130) H 02/18/24 06:18 Troponin T Baseline 30 ng/L (0-15) H 02/18/24 06:18 NT-Pro-B Natriuret Pep 1102 pg/mL (0-125) H 02/18/24 06:18 Total Protein 8.4 g/dL (6.6-8.7) 02/18/24 06:18 Albumin 5.2 g/dL (3.5-5.2) 02/18/24 06:18 Globulin 3.2 g/dL (1.3-4.6) 02/18/24 06:18 Procalcitonin 0.08 ng/mL (0-0.5) 02/18/24 06:18 Free T4 1.29 ng/dL (0.82-1.77) 02/18/24 06:18 Free T3 2.6 PG/ML (2.0-4.4) 02/18/24 06:18 All radiology interpretation(s) finalized by discharge Discharge Plan Discharge Patient Disposition: Admitted As Inpatient Admit Provider: Duane Garcia Clinical Impression: Non-sustained ventricular tachycardia Condition: Stable Coding Level of Care Code ED Casing Crew for Taylor Rocha
[2024-02-18 06:37] LABS: Basophils # 0.1 10^3/uL (0.0-0.1); Basophils % 0.4 %; Eosinophils # 0.1 10^3/uL (0.0-0.8); Eosinophils % 0.7 %; Hematocrit 51.9 % (37-53); Lymphocytes # 2.7 10^3/uL (0.8-4.8); Lymphocytes % 22.9 %; Mean Corpuscular HGB Conc 33.5 g/dL (30-55); Mean Corpuscular Hemoglobin 31.1 pg (27-33); Mean Corpuscular Volume 92.8 fl (82-101); Mean Platelet Volume 11.4 fL (7.4-10.4); Monocytes # 0.7 10^3/uL (0.2-0.9); Monocytes % 5.9 %; Neutrophils % 69.8 %; Nucleated Red Blood Cells % 0 %; Platelet Count 190 10^3/cmm (157-399); Red Blood Count 5.59 10^6/uL (3.85-5.65); Red Cell Distribution Width 12.8 % (12.1-15.1); White Blood Count 11.88 10^3/uL (3.29-11.43)
[2024-02-18 06:57] LABS: Troponin(5th) Baseline 30 ng/L (0-15)
[2024-02-18 06:59] LABS: Alanine Aminotransferase 29 U/L (0-41); Albumin Level 5.2 g/dL (3.5-5.2); Alkaline Phosphatase 150 U/L (40-130); Blood Urea Nitrogen 21 mg/dL (8-23); Calcium 10.6 mg/dL (8.5-10.5); Carbon Dioxide 18 mmol/L (22-29); Chloride 101 mmol/L (98-107); Creatinine Clr Calc Pharmacy 48.2552; Globulin 3.2 g/dL (1.3-4.6); Glucose 104 mg/dL (65-115); Osmolality Calculated 293 mOsm/kg (285-295); Sodium 140 mmol/L (136-145); Total Bilirubin 1.3 mg/dL (0.15-1.2); Total Protein 8.4 g/dL (6.6-8.7)
[2024-02-18 07:15] LABS: Anion Gap 24.9 (5-19); Aspartate Amino Transferase 32 U/L (0-40); Potassium 3.9 mmol/L (3.5-5.1)
[2024-02-18] MEDS: amiodarone 150 MG/100 ML PREMIX 400 MG IV (07:48)
--- NOTE | 2024-02-18 08:40 | PC.NURSE ---
VERBAL ORDERS FROM DR. THURMAN TO START AMIODORONE DRIP AT 0.5MG/MIN.
[2024-02-18 08:45] LABS: INR 0.94 (0.8-1.2)
[2024-02-18 08:50] LABS: Lactic Sepsis W/Reflex 3.2 mmol/L (0.5-2.2); Magnesium 2.1 mg/dL (1.7-2.3); NT Pro B Type Natriuretic Pept 1102 pg/mL (0-125)
[2024-02-18 08:55] LABS: D Dimer 19.56 ug/mLFEU (0-0.59)
[2024-02-18 08:57] LABS: Troponin 5 2HR 28.84 ng/L (0-15); Troponin 5 2HR Delta -1.16 ABS# (0-10)
[2024-02-18 09:12] LABS: Reflex Lactate Order REFLEX LACTIC ORDERD
[2024-02-18 09:15] LABS: Procalcitonin 0.08 ng/mL (0-0.5)
[2024-02-18] MEDS: pantoprazole 40 mg SDV IVP (09:42)
[2024-02-18] MEDS: heparin 5,000 unit/mL INJ 1 mL 5000 UNIT SUBCUT ×2 (09:42→20:49)
[2024-02-18] MEDS: magnesium oxide 400 mg tablet PO ×2 (09:43→17:23)
[2024-02-18] MEDS: metoprolol tartrate 25 mg Tablet PO ×2 (09:45→20:41)
[2024-02-18 10:37] LABS: Iron 64 ug/dL (59-158); Thyroid Stimulating Hormone 6.21 uIU/mL (0.27-4.20); Total Iron Binding Capacity 304 mcg/dl; Unsaturated Iron Binding 240 ug/dL (112-347); Vitamin B12 480 pg/mL (232-1245)
--- NOTE | 2024-02-18 11:19 | PC.NURSE ---
Dr Dakotah Hyman - [facility]- [phone]
--- NOTE | 2024-02-18 11:33 | PM.HP ---
Providers/Chief Complaint Admitting Physician: Duane Garcia MD Primary Care Provider: Nabeel Zarate MD Chief Complaint: vtach, defib fired History of Present Illness Jean Carlos Chavez is a 73 year old male with past medical history of CAD post PCI, Past history of non-ST elevation NV, cardiac arrest survivor with last angiogram showing high-grade distal RCA with mild to moderate disease post PCI to RCA now, ischemic cardiomyopathy with last known EF of 25 to 30%, who follows up at [facility]. Patient has been having episodes of recurrent syncope for last 4 months which he was treated with event monitor placement. 1 week ago event monitor was read at the [facility] and he was advised to go to the ER with concerns for recurrent episodes of ventricular tachycardia. Patient after that was admitted at [facility] and subsequently transferred to [facility]. Patient was due to get an ICD implantation but was delayed for now with concerns for dental infection. Patient was recently discharged from the hospital on LifeVest and oral amiodarone. Yesterday evening while coming from work patient had episode of palpitations with chest pressure. He thinks his LifeVest was about to discharge but he stopped it. Overnight patient had multiple episodes of palpitations with LifeVest beeping but no discharges associated with chest pressure and difficulty in breathing. When came to the ER today morning he was found to have multiple episodes of VPCs, at least 2-3 episodes of nonsustained V. tach and subsequently he was placed on amiodarone drip. Currently when seen in ICU patient is awake and alert, hemodynamically stable, saturating well on room air. Denying any chest pain, nausea or vomiting. Patient otherwise denies any changes in his medications recently, recent diarrhea, dysuria, cough, difficulty in breathing. He states around 4 months ago he started a new herbal product for chronic constipation. Review of Systems General: Reports: 10 or more systems reviewed and unremarkable except in HPI and below Const: Denies: fever(s), chills, body aches, change in appetite, change in weight, malaise, night sweats, diaphoresis, change in sleep pattern, daytime sleepiness or snoring Eyes: Denies: change in vision, blurry vision, photophobia, eye discomfort or eye discharge ENMT: Denies: throat pain, enlarged tonsils, hoarseness, mouth pain, oral sores, dry mouth, tinnitus, nasal congestion or post nasal drip Card: Denies: chest pain, palpitations, irregular heart rhythm, edema, swelling of feet/ankles, lightheadedness, syncope, pre-syncope, dyspnea on exertion, orthopnea, leg pain with exertion or acrocyanosis Resp: Denies: dyspnea, productive cough, non-productive cough, wheezing, stridor, pain on inspiration, change in phlegm color, hemoptysis or chest congestion GI: Denies: abdominal pain, nausea, vomiting, hematemesis, coffee ground emesis, dysphagia, heartburn, diarrhea, constipation, bloating, GI cramping, change in bowel habits, pain on defecation, hematochezia or melena : Denies: flank pain, difficulty urinating, dysuria, urinary frequency, urinary urgency, urinary hesitancy, urinary dribbling, difficulty starting urination, change in urine stream, nocturia or hematuria Musc: Denies: neck pain, back pain, extremity pain, joint pain, joint swelling, joint redness, joint stiffness or limited range of motion Neuro: Denies: headache(s), numbness in extremities, weakness in extremities, sensory changes, lack of coordination, difficulty walking, frequent falls, dizziness, vertigo, confusion, Slurred speech present, difficulty communicating thoughts or seizure-like activity Psych: Denies: anxiety, depression, mood swings, panic attacks, hopelessness or irritability Endo: Denies: polyuria, polydipsia, tired all the time, cold intolerance, excessive sweating, flushing or heat intolerance Damon/Lymph: Denies: easy bruising or easy bleeding All/Imm: Denies: tongue swelling, facial swelling or acute wheezing Medications/Allergies Home Medications Medication Instructions Recorded Confirmed Last Taken Type aspirin 81 mg tablet,delayed 81 mg PO QPM 10/07/19 02/18/24 02/16/24 History release (Karli Low Dose Aspirin) nitroglycerin 0.4 mg sublingual 0.4 mg sublingual Q5M PRN Chest 04/26/22 02/18/24 08/08/22 21:00 Rx tablet Pain #30 tabs ketoconazole 2 % shampoo See Rx Instructions .Route .COMPLEX 06/23/23 02/18/24 Unknown History amiodarone 200 mg tablet 200 mg PO BID 02/18/24 02/18/2402/16/25 08:00 History ascorbic acid (vitamin C) 1,000 mg 1,000 mg PO DAILY 02/18/24 02/18/24 02/17/24 History tablet (Vitamin C) [place] sag[place] 325 mg tablet 325 mg PO DAILY PRN constipation 02/18/24 02/18/24 Unknown History clopidogrel 75 mg tablet 75 mg PO DAILY 02/18/24 02/18/24 02/16/24 History docusate sodium 250 mg capsule 250 mg PO BID PRN constipation 02/18/24 02/18/24 02/16/24 History (Stool Softener) empagliflozin 10 mg tablet See Rx Instructions .Route .COMPLEX 02/18/24 02/18/24 02/17/24 History (Jardiance) ezetimibe 10 mg tablet 10 mg PO DAILY 02/18/24 02/18/24 02/16/24 History ibuprofen 200 mg tablet (Advil) 600 mg PO Q6H PRN Pain 02/18/24 02/18/24 Unknown History melatonin 10 mg tablet 10 mg PO BEDTIME PRN Sleep 02/18/24 02/18/24 02/16/24 History metoprolol succinate 50 mg 50 mg PO DAILY 02/18/24 02/18/24 02/17/24 History tablet,extended release 24 hr sacubitril 24 mg-valsartan 26 mg 1 tab PO BID 02/18/24 02/18/24 02/17/24 08:00 History tablet (Entresto) spironolactone 25 mg tablet 12.5 mg PO DAILY 02/18/24 02/18/24 02/17/24 History Allergies Allergy/AdvReac Type Severity Reaction Status Date / Time hydrocodone Allergy ADR-Confusi Verified 01/25/24 16:13 on Gjvamwf-IWX-YvD Reductase AdvReac muscle pain Verified 01/25/24 16:13 Inhibitor [Vqlwrpc-Aqf-Heq Reductase Inhibitor] PFSH Acute PFSH: Medical History Systemic viral illness Marijuana use Atherosclerosis of coronary artery Chronic constipation Dyslipidemia Benign essential HTN Hypokalemia Atherosclerotic heart disease of [place] coronary artery with unstable angina pectoris Coronary artery disease Surgical History H/O right coronary artery stent placement Family History Father CAD (coronary artery disease) Other Adopted Denies family history of Diabetes Clotting disorder Dementia Suicide Anesthesia complication Bleeding disorder Lung disease Stroke Social History Smoking and tobacco/nicotine status: former use of tobacco/nicotine Alcohol intake: current Alcohol intake frequency: holidays/special occasions only Alcohol type: beer Substance/Drug Use: current Household members: spouse Housing: House Marital status: Current occupational status: retired Vitals/I&O/Wt Last Vital Signs Temp 97.9 F 02/18/24 09:25 Pulse 79 02/18/24 11:20 Resp 17 02/18/24 11:20 BP 96/49 02/18/24 11:20 Pulse Ox 96 02/18/24 11:20 O2 Del Method Room Air 02/18/24 10:28 02/17/24 02/18/24 02/18/24 22:59 06:59 14:59 Intake Total 0 / 0 100 / 100 Balance 0 / 0 100 / 100 Weight last 48 hrs Weight 90.718 kg Physical Exam Narrative: General: No acute distress, AO x3 HEENT: PERRLA, pupils bilaterally equal and reactive Chest: Normal vesicular breath sounds, no added sounds, equal good air entry bilaterally CVS: S1-S2 irregularly regular, Pansystolic murmur at mitral radiating to anterior axillary line, fourth intercostal space left retrosternal, no tachycardia, no gallops, no rubs Abdomen: Soft, nontender, no organomegaly, bowel sounds present Neuro: No focal deficits, no facial deformity, AO x3, power 5/5 in all limbs Data 02/18/24 06:18 02/18/24 06:18 A&P Assessment and plan (1) Non-sustained ventricular tachycardia: Being worked up as an outpatient for ICD placement. Recently deferred because of concerns for dental infection at [facility]. Check troponin cycle. States recently has had angiogram within last 1 week which was reported normal. 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 Check echocardiogram. Check D-dimer. Monitor electrolytes. Target potassium around 4, magnesium around 2. Will replace accordingly. Appreciate QTc. Continue with amiodarone drip for now. Continue with home dose of magnesium oxide. Continue with home dose of amiodarone 200 mg twice daily, metoprolol 25 mg twice daily. Cardiology consulted from the ER. Will await recommendations. If continues to have recurrent episodes of nonsustained V. tach or recurrent PVCs can consider lidocaine drip. (2) Ischemic cardiomyopathy: Last echocardiogram from May 2023 showed an EF of 30%, severe global LV hypokinesia, grade 1 diastolic dysfunction, moderate MR, trace TR. Currently euvolemic. Given soft blood pressures for now we will hold off on spironolactone and Entresto. Continue with metoprolol, baby aspirin, Plavix is on withhold given need for recent AICD. (3) Congestive heart failure with left ventricular systolic dysfunction (LVSD): (4) Benign essential HTN: Goal blood pressure less than 140/90 OG mean over 65. Metoprolol as above. Entresto on hold as above. (5) Chronic kidney disease: Baseline creatinine recently within last year 1.4-1.6. Currently at baseline of 1.6. Medical reconciliation done for nephrotoxic drugs. Monitor daily. Plan Full code Cardiac diet Protonix OPD prophylaxis Heparin 5000 every 12 hourly for DVT prophylaxis Attestations Medical Necessity Statement*: Admit to ICU for more than 2 midnights for management of nonsustained V. tach in a patient with history of ischemic cardiomyopathy with a EF of 25 to 30%, cardiac arrest survivor being worked up as an outpatient for AICD Critical Care Time: The high probability of a clinically significant, sudden or life threatening deterioration of the patient's [cardiac] system(s) required my full and direct attention, intervention and personal management. The critical care time is as shown. This time is in addition to time spent performing any reported procedures but includes the following: [x] Data and vital sign review and interpretation [x] Patient assessment, examination and intervention [x] Documentation [x] Medication orders and management Critical Care Time (min): 65 Coding Level of Care Code Critical Care >/= 30 minutes Critical care time (in minutes): 65 The high probability of a clinically significant, sudden or life threatening deterioration, as referenced in this documentation, required my full and direct attention, intervention and personal management. The critical care time shown is in addition to time spent performing any reported separately billable procedures and includes the following: [x] Data and vital sign review and interpretation [x] Patient assessment, examination and intervention [x] Medication orders and management [x] Patient/Family updates as able [x] Care Coordination and Documentation. Diagnoses Non-sustained ventricular tachycardia I47.29 Ischemic cardiomyopathy I25.5 Congestive heart failure with left ventricular systolic dysfunction (LVSD) I50.20 Benign essential HTN I10 Chronic kidney disease N18.9
[2024-02-18 11:47] LABS: Lactic Acid level (Lactate) 1.5 mmol/L (0.5-2.2)
[2024-02-18 12:35] LABS: Bilirubin Urine Negative (Negative); Blood Urine 2+ (Negative); Glucose Urine UA 3+ (Normal); Ketones Urine Negative (Negative); Leukocyte Esterase Urine Negative (Negative); Nitrate Urine Negative (Negative); Protein Urine Trace (Negative); Specific Gravity, Urine 1.026 (1.005-1.030); Urine Appearance Clear (CLEAR); Urine Color Yellow (Yellow)
[2024-02-18 12:41] LABS: Add Urine Microscopic? YES; Bacteria Urine None Seen /hpf; Squamous Epithelial Cell Urine 0-5 /hpf (0-5); WBC Urine 0-5 /hpf (0-5)
[2024-02-18 12:46] LABS: Potassium, Radom Urine 30 mmol/L; Urine Random Chloride 85 mmol/L; Urine Random Sodium 103 mmol/L
[2024-02-18 13:06] LABS: Free T4 Free Thyroxine 1.29 ng/dL (0.82-1.77); T3 Free 2.6 PG/ML (2.0-4.4)
--- NOTE | 2024-02-18 13:59 | P.CONIM_ITS ---
Providers/Reason For Consult 2 Consulting Physician/Specialty*: Sailaja Carrera MD Reason for Consult*: Nonsustained ventricular tachycardia Ischemic cardiomyopathy Severely depressed ejection fraction Requesting Physician: Dr. Yany Gillis Attending Physician: Duane Garcia MD Primary Care Provider: Nabeel Zarate MD History of Present Illness History of Present Illness Jean Carlos Chavez is a 73 year old male past medical history significant for ischemic cardiomyopathy severely depressed ejection fraction less than 35% who was scheduled to obtain ICD but because of teeth infection it was postponed and discharged on LifeVest. Yesterday patient experienced irregular heartbeat palpitation and noticed LifeVest was alarming therefore he decided to come to the ER he was noted to have several short runs of ventricular tachycardia he denies chest pain electrolytes are within normal limit it is therefore patient has been admitted to the hospital and given IV amiodarone currently appear to be stable. Medications/Allergies Home Medications Medication Instructions Recorded Confirmed Last Taken Type aspirin 81 mg tablet,delayed 81 mg PO QPM 10/07/19 02/18/24 02/16/24 History release (Karli Low Dose Aspirin) nitroglycerin 0.4 mg sublingual 0.4 mg sublingual Q5M PRN Chest 04/26/22 02/18/24 08/08/22 21:00 Rx tablet Pain #30 tabs ketoconazole 2 % shampoo See Rx Instructions .Route .COMPLEX 06/23/23 02/18/24 Unknown History amiodarone 200 mg tablet 200 mg PO BID 02/18/24 02/18/24 02/17/24 08:00 History ascorbic acid (vitamin C) 1,000 mg 1,000 mg PO DAILY 02/18/24 02/18/24 02/17/24 History tablet (Vitamin C) casc[place] sagrada 325 mg tablet 325 mg PO DAILY PRN constipation 02/18/24 02/18/24 Unknown History clopidogrel 75 mg tablet 75 mg PO DAILY 02/18/24 02/18/24 02/16/24 History docusate sodium 250 mg capsule 250 mg PO BID PRN constipation 02/18/24 02/18/24 02/16/24 History (Stool Softener) empagliflozin 10 mg tablet See Rx Instructions .Route .COMPLEX 02/18/24 02/18/24 02/17/24 History (Jardiance) ezetimibe 10 mg tablet 10 mg PO DAILY 02/18/24 02/18/24 02/16/24 History ibuprofen 200 mg tablet (Advil) 600 mg PO Q6H PRN Pain 02/18/24 02/18/24 Unknown History melatonin 10 mg tablet 10 mg PO BEDTIME PRN Sleep 02/18/24 02/18/24 02/16/24 History metoprolol succinate 50 mg 50 mg PO DAILY 02/18/24 02/18/24 02/17/24 History tablet,extended release 24 hr sacubitril 24 mg-valsartan 26 mg 1 tab PO BID 02/18/24 02/18/24 02/17/24 08:00 History tablet (Entresto) spironolactone 25 mg tablet 12.5 mg PO DAILY 02/18/24 02/18/24 02/17/24 History Allergies Allergy/AdvReac Type Severity Reaction Status Date / Time hydrocodone Allergy ADR-Confusi Verified 01/25/24 16:13 on Cgjsosr-AFL-WkW Reductase AdvReac muscle pain Verified 01/25/24 16:13 Inhibitor [Hqztuwt-Nyj-Cxy Reductase Inhibitor] Current Medications Generic Name Dose Route Start Last Admin Trade Name Freq PRN Reason Stop Dose Admin Heparin Sodium (Porcine) 5,000 unit 02/18/24 09:26 02/18/24 09:42 Heparin 5,000 Unit/Ml Inj 1 Ml SUBCUT 5,000 unit Q12H JOI Administration Amiodarone HCl/Dextrose 360 mg in 200 mls @ 0 mls/hr 02/18/24 08:00 02/18/24 08:36 Nexterone IV 0.5 mg/min .Q0M JOI 16.67 mls/hr Administration Protocol Per Protocol Magnesium Oxide 400 mg 02/18/24 09:26 02/18/24 09:43 Magnesium Oxide 400 Mg Tablet PO 400 mg BID JOI Administration Metoprolol Tartrate 25 mg 02/18/24 09:30 02/18/24 09:45 Metoprolol Tartrate 25 Mg Tablet PO 25 mg BID JOI Administration Pantoprazole Sodium 40 mg 02/18/24 09:26 02/18/24 09:42 Pantoprazole 40 Mg Sdv IVP 40 mg Q24H JOI Administration PFSH Acute 2 PFSH: Medical History (Updated 02/18/24 @ 16:52 by Sailaja Carrera MD) Chronic kidney disease Ischemic cardiomyopathy Systemic viral illness Marijuana use Atherosclerosis of coronary artery Chronic constipation Dyslipidemia Benign essential HTN Hypokalemia Atherosclerotic heart disease of [place] coronary artery with unstable angina pectoris Coronary artery disease Surgical History H/O right coronary artery stent placement Family History Father CAD (coronary artery disease) Other Adopted Denies family history of Diabetes Clotting disorder Dementia Suicide Anesthesia complication Bleeding disorder Lung disease Stroke Social History Smoking and tobacco/nicotine status: former use of tobacco/nicotine Alcohol intake: current Alcohol intake frequency: holidays/special occasions only Alcohol type: beer Substance/Drug Use: current Household members: spouse Housing: House Marital status: Current occupational status: retired Vitals/I&O/Wt Last Vital Signs Temp 97.9 F 02/18/24 09:25 Pulse 76 02/18/24 12:00 Resp 16 02/18/24 12:00 BP 99/56 02/18/24 12:00 Pulse Ox 97 02/18/24 12:00 O2 Del Method Room Air 02/18/24 10:28 02/17/24 02/18/24 02/18/24 22:59 06:59 14:59 Intake Total 0 / 0 100 / 100 Balance 0 / 0 100 / 100 Weight last 48 hrs Weight 178 lb 9.191 oz Weight 200 lb Physical Exam 2 Const: OTHER: GENERAL: Patient is alert, awake and oriented x3. HEART: Regular S1 and S2. No murmur, rub or gallop. LUNGS: Clear to auscultate bilaterally. CENTRAL NERVOUS SYSTEM: Grossly nonfocal. EXTREMITIES: Lower extremities with out edema bilaterally. Data 02/18/24 06:18 02/18/24 06:18 A&P Assessment and plan (1) Non-sustained ventricular tachycardia: (2) Congestive heart failure with left ventricular systolic dysfunction (LVSD): (3) Ischemic cardiomyopathy: (4) Acute renal failure (ARF): Plan At this point we agree with IV amiodarone will load him for that and switch to p.o. by tomorrow. Will start him on 400 twice daily from tomorrow Electrolytes are within normal limits Patient appeared to me he is dry we will give him IV fluid for prerenal azotemia since renal function has bumped, will start patient on 100 mL/h for 1 L Continue aspirin and statin clopidogrel and beta-kyra. For heart failure continue sacubitril and valsartan if creatinine worsen may will back off I have tried to call patient's marketing database analyst on his cell phone we will try to reconnect again. Consult Attestations 2 Medical Necessity Statement: Patient require continuation hospitalization for above defined reason Coding Level of Care Code Acute Code for Chg Fwd Diagnoses Non-sustained ventricular tachycardia I47.29 Congestive heart failure with left ventricular systolic dysfunction (LVSD) I50.20 Ischemic cardiomyopathy I25.5 Acute renal failure (ARF) N17.9
[2024-02-18 14:49] LABS: Troponin 5 6HR 26.34 ng/L (0-15)
[2024-02-18 14:50] LABS: Troponin 5 6HR Delta -3.66 ng/L (0-12)
[2024-02-18] MEDS: amiodarone 200 mg Tablet PO (17:23)
[2024-02-18] MEDS: aspirin 81 mg EC Tablet PO (17:23)
[2024-02-18] MEDS: sodium chloride 0.9% 1,000 ML 100 ML IV (18:31)
--- NOTE | 2024-02-18 19:16 | PC.NURSE ---
Shift SUmmary: Uneventful shift. rested in bed throughout the day. Early in shift PVCs were frequent, multiple times every minute. By end of shift PVCs are rare. Started on PO amiodarone in addition to IV amiodarone. 1 liter fluid given over 10 hours. Medical records requests sent to [facility]
[2024-02-19] VITALS (51 sets, daily range): BP systolic 82–133; BP diastolic 44–93; PULSE 51–81; RESP 6–27; TEMP 36.1–36.9; O2SAT 91–99
[2024-02-19 05:38] LABS: Basophils % 0.5 %; Eosinophils # 0.2 10^3/uL (0.0-0.8); Eosinophils % 2.5 %; Hematocrit 43.5 % (37-53); Lymphocytes # 2.2 10^3/uL (0.8-4.8); Lymphocytes % 25.5 %; Mean Corpuscular HGB Conc 32.9 g/dL (30-55); Mean Corpuscular Hemoglobin 31.7 pg (27-33); Mean Corpuscular Volume 96.5 fl (82-101); Mean Platelet Volume 11.4 fL (7.4-10.4); Monocytes # 0.7 10^3/uL (0.2-0.9); Monocytes % 7.6 %; Neutrophils # 5.61 10^3/uL (1.8-7.7); Neutrophils % 63.7 %; Nucleated Red Blood Cells % 0 %; Platelet Count 139 10^3/cmm (157-399); Red Blood Count 4.51 10^6/uL (3.85-5.65); Red Cell Distribution Width 13.1 % (12.1-15.1)
[2024-02-19 06:02] LABS: Procalcitonin 0.06 ng/mL (0-0.5)
[2024-02-19 06:15] LABS: Folate Level 5.5 ng/mL (4.5-32.2)
[2024-02-19 06:20] LABS: Alanine Aminotransferase 16 U/L (0-41); Albumin Level 3.5 g/dL (3.5-5.2); Alkaline Phosphatase 94 U/L (40-130); Anion Gap 16.3 (5-19); Aspartate Amino Transferase 18 U/L (0-40); Blood Urea Nitrogen 14 mg/dL (8-23); Calcium 8.3 mg/dL (8.5-10.5); Carbon Dioxide 18 mmol/L (22-29); Chloride 108 mmol/L (98-107); Chol HDL Ratio 5.36 mg/dL (1.0-5.00); Cholesterol 134 mg/dL (0-200); Creatinine Clr Calc Pharmacy 51.0321; Globulin 2.1 g/dL (1.3-4.6); Glucose 107 mg/dL (65-115); HDL Cholesterol 25 mg/dL (60-100); LDL Cholesterol Calculated 82 mg/dL (50-129); LDL HDL Ratio 3.28 RATIO (0.00-3.22); Magnesium 1.9 mg/dL (1.7-2.3); Osmolality Calculated 287 mOsm/kg (285-295); Phosphorus 3.1 mg/dL (2.5-4.5); Potassium 4.3 mmol/L (3.5-5.1); Sodium 138 mmol/L (136-145); Total Bilirubin 0.9 mg/dL (0.15-1.2); Total Protein 5.6 g/dL (6.6-8.7); Triglycerides 137 mg/dL (0-150)
[2024-02-19 06:34] LABS: Estmated Average Glucose 114; Hemoglobin A1C 5.6 % (4.0-6.0)
[2024-02-19] MEDS: metoprolol tartrate 25 mg Tablet PO (08:26)
[2024-02-19] MEDS: amiodarone 200 mg Tablet PO ×2 (08:26→09:04)
[2024-02-19] MEDS: pantoprazole 40 mg SDV IVP (08:35)
[2024-02-19] MEDS: magnesium oxide 400 mg tablet PO ×2 (08:35→17:27)
[2024-02-19] MEDS: ezetimibe 10 mg Tablet PO (08:36)
[2024-02-19] MEDS: heparin 5,000 unit/mL INJ 1 mL 5000 UNIT SUBCUT ×2 (08:36→21:29)
--- NOTE | 2024-02-19 08:51 | ECG_ITS ---
[facility] Date: 2024-02-19 Pat Name: Jean Carlos Chavez Department: Room: [facility] Gender: Male Entry Level Management: : 1950 Requested By: Sailaja Carrera Order Number: [id number] Suraj MD: Angel Wiley M.D. Measurements Intervals [place] Rate: 80 P: 72 ND: 158 QRS: 53 QRSD: 102 T: 59 QT: 383 QTc: 443 Interpretive Statements SINUS RHYTHM WITH OCCASIONAL VENTRICULAR PREMATURE COMPLEXES WITH FREQUENT SUPRAVENTRICULAR PREMATURE COMPLEXES NONSPECIFIC ST & T-WAVE ABNORMALITY ABNORMAL RHYTHM ECG Compared to ECG 02/18/2024 06:25:21 No significant changes Electronically Signed On 02-22-2024 00:01:37 LAW LIBRARIAN by Angel Wiley M.D. [email or web address]
[2024-02-19] MEDS: morphine 4 mg/mL SDV 1 mL 2 MG IVP (08:53)
[2024-02-19] MEDS: ondansetron 2 mg/ML SDV 2 mL 4 MG IVP ×2 (09:11→13:33)
[2024-02-19] MEDS: magnesium sulfate premix 1 GM/100 ML PIGGYBACK IV (09:46)
[2024-02-19] MEDS: metoprolol tartrate 1 mg/1 mL SDV 5 mL 5 MG (09:53)
--- NOTE | 2024-02-19 10:13 | XACV_ITS ---
[place] [facility] [place]: 185 cm Wt: 75 kg BSA: 1.96 m2 Gender: Male : 1950 Any Known Allergies: Other Exam Priority: Routine Procedure(s): Procedure Description: Diagnostic procedure Procedure Description: PCI procedure Procedure Description: Drug Eluting Coronary Stent Procedure Description: Miscellaneous Procedure Description: ACT Procedure Description: Coronary Angiography Procedure Description: Pressure Wire ALY, Deandre; Diagnostic Cath Status: Urgent Diagnostic Findings * Left Main has no disease. * Distal Left Anterior Descending: mild 40% stenosis, DONNY: 3 flow. * Proximal Right Coronary Artery: mild 40% stenosis, DONNY: 3 flow, iFR performed: ratio is 1. * Mid Right Coronary Artery: moderate 50% stenosis, DONNY: 3 flow, iFR performed: ratio is 1. * Distal Right Coronary Artery: mild 40% stenosis, DONNY: 3 flow, iFR performed: ratio is 1. * Mid Circumflex: significant 75% stenosis, DONNY: 3 flow, iFR performed: ratio is 0.92. * First Obtuse Marginal Branch Segment: luminal irregularities 20% stenosis, DONNY: 3 flow. * Coronary angiography shows right dominance. PCI Status: Urgent Interventional Findings * Mid Circumflex: 75% stenosis treated with a AB TREK 2.50X15 RX BALLOON, COLLIN Carroll JUSTIN 2.75X26 FOX, and MDKaity DHILLON EUPHORA RX [id number] BALLOON. 0% residual stenosis, DONNY: 3 flow. Successful intervention. Conclusions 1. There is significant coronary artery disease with three vessel disease. 2. Mid Circumflex was treated with a Balloon, Drug Eluting Stent, and Balloon. 3. 73-year-old male past medical history significant for ischemic cardiomyopathy left ventricular ejection fraction less than 35% presented with a recurrent VT, despite of IV amiodarone patient was shocked this morning for sustained VT, metoprolol was increased despite of that patient continues to have ventricular tachycardia runs. He was taken to the Pbx Teacher. He was noted to have visually significant mid circumflex lesion around 75%, IFR was performed which came back borderline at 0.92, since patient continues to have ventricular tachycardia and visually the lesion is significant to me and because of the fact he has chronic kidney disease therefore through my clinical judgment I decided to intervene as moderate ischemic burden may can be contributing to his arrhythmia.IFR of RCA was performed which was normal at 1.0. Recommendations * 1-Return to inpatient for close monitoring and routine cath care 2-Risk factor modification for secondary prevention 3-Statin and aspirin 81 mg life-long, if tolerated 4-Patient was pre-loaded with 600 mg of Plavix, continue Plavix 75mg p.o. daily for at least one year. We will assess at the end of one year again to continue if further or not 5-Continue optimal medical management 6-Refer to EP for study and ICD. Interventional RX Recommendation: PCI w/o planned CABG Diagnostic RX Recommendation: PCI w/o planned CABG Pressures Phase:Rest AO : 91 / 47 ( 68 ) @ 11:22:00 AM 100 / 62 ( 76 ) @ 11:39:00 AM 98 / 57 ( 77 ) @ 11:52:00 AM 112 / 70 ( 89 ) @ 12:04:00 PM 93 / 65 ( 77 ) @ 12:14:00 PM Clinical Evaluation EBL: 5mL-10mL Procedural Details Procedure Consent Obtained. Admit Source: In Patient. Pre-Procedure Time Out. Identified patient by full name and date of as verbalized by the patient/guarantor. Does the consent match the physician's order: Yes. Accurate & Complete Informed Consent: Yes. Inpatient/Outpatient History & Physical on Chart: Yes. If H&P is completed, is and addenduem needed: No; If yes, is the addendum complete: N/A. Visualize and Verify Site with Patient/Guarantor: N/A. Relevant Radiology Images available: N/A. Pre-op teaching completed and patient verbalized understanding. The risks, benefits, and alternatives of sedation and/or procedure were discussed by physician. The patient agrees to continue. Procedure started. [facility] Clinical Fraility Score: 4: Vulnerable. Pbx Teacher Indications: Cardiac Arrhythmia. Chest Pain Symptom Assessment: Asymptomatic. Cardiovascular Instability: Yes, if yes, Ventricular Arrhythmias. Correct patient, site and procedure confirmed by cath team. PERRLA. Strong, equal hand peach grower bilaterally. Lungs clear x 5 lobes. IV Site on Arrival: 20 gauge in the left forearm. IV Site on Arrival: 20 gauge in the right anticubital. IV Fluids: 0.9% NaCl at KVO. 0 mL infused prior to quality lab technician. Pre Procedural Pulses: bilateral dorsalis pedis was 2+. Pre Procedural Pulses: right radial was 2+. Oxygen started at 2liters/min via nasal canula. right groin was prepped with chloroprep then draped in the usual sterile fashion. right radial was prepped with chloroprep then draped in the usual sterile fashion. Baseline sample Acquired. HR: 74 BPM. Physician notified. Physician arrived. Pt arrived with AP pads on chest. Amiodarone infusing at 1mg/min, started in ICU. Physician scrubbed in. Immediate Pre-Procedure Time Out. Correct Patient: Yes; Correct Procedure: Yes; Correct Site: Yes; Correct Patient Position: Yes; Correct Supplies: Yes; Dried Flammable Prep: Yes; Blood Products Available: N/A;. Lidocaine 1% infiltrated to the right radial. Arterial access obtained. A 5 bangladeshi TIG catheter in over wire. Exchange wire out, Glidewire inserted through the Sharon catheter. Glidewire out. Exchange wire inserted. Exchange wire out. Multiple views taken of right coronary artery. Catheter redirected to the LCA. Catheter removed over the exchange wire. A 5 bangladeshi Breezy catheter in over wire. ACT drawn. Results 157 seconds. Therapeutic limits - pre-heparin administration 90-150 seconds and monitoring heparin during a vascular procedure >250 seconds. Multiple views taken of left coronary artery. Catheter removed over the exchange wire. 6 bangladeshi XB 3.5 SH guide catheter was inserted over the wire. IFR guidewire was advanced through the guide catheter to lesion in the mid Circ. ACT drawn. Results 257 seconds. Therapeutic limits - pre-heparin administration 90-150 seconds and monitoring heparin during a vascular procedure >250 seconds. IFR performed of Mid Cx, IFR spot 0.92. IFR pullback 0.93. Wire out. Runthrough guidewire was advanced through the guide catheter past the lesion in the mid Circ. Balloon inserted to lesion in the mid Circ. Inflation number : 1 A AB TREK 2.50X15 RX BALLOON was prepped and advanced across the Mid CX , then inflated to 14 LJ for 0:15 seconds. Balloon out. Results checked. Stent inserted to lesion in the mid Circ. Inflation Number : 2 A MDT R JUSTIN 2.75X26 FOX -Lot Number# [id number] Exp 08/09/2026 was prepped and advanced across the Mid CX. The stent was deployed at 14 LJ for 0:20 seconds. Stent balloon out over wire. Balloon inserted to lesion in the mid Circ. Inflation number : 3 A MDT NC EUPHORA RX [id number] BALLOON was prepped and advanced across the Mid CX , then inflated to 12 LJ for 0:15 seconds. Inflation number: 4 The MDT NC EUPHORA RX [id number] BALLOON was reinflated across the Mid CX, to 12 LJ for 0:13 seconds. Inflation number: 5 The MDT NC EUPHORA RX 3.44H86WE BALLOON was reinflated across the Mid CX, to 14 LJ for 0:16 seconds. Balloon out. ACT drawn. Results seconds. Therapeutic limits - pre-heparin administration 90-150 seconds and monitoring heparin during a vascular procedure >250 seconds. Wire pulled back into the catheter. Results checked. Guide catheter and wire out. 6 bangladeshi JR 4 SH guide catheter was inserted over the wire. IFR guidewire was advanced through the guide catheter to lesion in the distal RCA. IFR spot of distal RCA 1.0. IFR wire and catheter out. Physician scrubbed out. A TR Band was successful obtaining hemostatsis at the Right Radial artery insertion site. Post Procedure: Pulses reassessed and unchanged. PERRLA. Strong, equal hand peach grower bilaterally. No VTE prophylaxis required. Medication's Wasted: Lidocaine 1% = 18 mL. Medication's Wasted: Heparin = 2000 u. Medication's Wasted: Other = Neosynephrine 9.8 mg. Medication's Wasted: Nitro = 49.8 mg. Post-op diagnosis: Significant Mid Cx lesion s/p successful stenting x1, Non significant IFR of Distal RCA stent stenosis less than 50 %. Total IV fluids: 400 mL. PCI Indication: CAD, Positive IFR of Mix Cx. Complications: none. Estimated blood loss: 5mL-10mL. Responsiveness - Normal response to verbal stimuli; alert and oriented, PERRLA. Airway - Unaffected, no intervention required; spontaneous ventilation. Circulation: W/N/L, pulses unchanged. Nausea/Vomiting: No. Procedure completed. Patient transferred by bed to ICU. Vital chart was stopped. Access Site Site: Right Radial artery Sheath Size: 6 Fr Hemostasis Method: TR Band Hemostasis Success: Successful Procedure Medications Start: 11:01 AM Stop: 11: AM Medication: Versed Amount: 1 mg Route: I.V. Start: 11:01 AM Stop: 11:01 AM Medication: Fentanyl Amount: 50 mcg Route: I.V. Start: 11:11 AM Stop: 11: AM Medication: 0.9% Saline Amount: 250 ml Route: I.V. bolus Start: 11:28 AM Stop: : AM Medication: Heparin Amount: 5000 units Route: I.V. Start: 11:44 AM Stop: 11:44 AM Medication: Heparin Amount: 3000 units Route: I.V. Start: 12:00 PM Stop: 12:00 PM Medication: Plavix Amount: 600 mg Route: P.O. Start: 12:03 PM Stop: 12:03 PM Medication: Versed Amount: 1 mg Route: I.V. Start: 12:13 PM Stop: 12:13 PM Medication: Nitrogylcerin Amount: 200 mcg Route: I.C. Start: 12:14 PM Stop: 12:14 PM Medication: Neosynephrine Amount: 200 mcg Route: I.V. Start: 12:27 PM Stop: 12:27 PM Medication: Heparin Amount: 1000 units Route: I.V. Start: 12:31 PM Stop: 12:31 PM Medication: Fentanyl Amount: 50 mcg Route: I.V. I, the attending physician, have reviewed and verified all procedure medications. Yes, all medications given per verbal order History/Risk Factors Dyslipidemia: No Peripheral Arterial Disease (PAD): No Myocardial Infarction (FL): Yes Obesity: No Renal Disease: No Tobacco Use: Former Prior Interventions PCI: Yes CABG: No Valve Surgery: No Date of PCI: 08/08/2022 Report Signatures Finalized by Sailaja Carrera MD on 02/19/2024 01:22 PM
--- NOTE | 2024-02-19 10:59 | W.PM.OPSUD ---
Surgery/Procedure H&P Update DATE OF PROCEDURE: February 19, 2024 DATE H&P PERFORMED: 02/18/24 CHANGES TO PREVIOUS DOCUMENTATION: Recurrent sustained VT requiring shock with hemodynamic instability and the patient with ischemic cardiomyopathy and known more than 50% blockage in the RCA territory which need to be assessed as a cause for ischemia PREOP DIAGNOSIS: Ventricular tachycardia PLANNED PROCEDURE: Patient has been explained in detail all risk-benefit and alternative for the procedure he understand risk for stroke major bleed 2%. He understand risk for contrast-induced nephropathy 6 to 8% hematoma vascular injury infection bruising pseudoaneurysm. He would like to proceed with it. PATIENT REASSESSED PRIOR TO SEDATION, WITH NO CHANGE NOTED: Yes PHYSICAL EXAM: alert, oriented x 3, clear to auscultation bilaterally, regular rate & rhythm and operative site marked AIRWAY EVAL/ANESTHESIA PLAN: ASA II, Risks, benefits & alternatives of sedation and/or procedure discussed and Patient agrees to continue as planned
--- NOTE | 2024-02-19 11:56 | PC.NURSE ---
Event note: THis morning, shortly after starting breakfast, patient was observed to have several short runs of vtach. Other than feeling like his heart is racing the patient was asymptomatic. Nurse restarted IV amiodarone and alerted Dr Ibrahim. Received oders to continue IV amiodarone at 1mg/min. one time additional dose of 200mg amiodarone, and increased future amiodarone doses. After starting amiodarone IV, patient's heart rate was less variable. About 20 minutes after the above events, the patient went into sustained vtach, heart rate of 240. Patient was feeling dizzy and was clutching his chest. Per acls, patient was cardioverted - 200 joules. Patient's heart rate then became Sinus tach with frequent PVCs. Nurse then called Dr ibrahim and Dr pradhan. received orders for 5mg IVP metoprolol, and 1gm of magnesium. After receiving metoprolol, patient's heart rate returned to sinus rythm with occasional PVCs. Patient is agreeable to an angiogram which will be performed by Dr Ibrahim. Nurse updated Patient's to changes and up coming procedure.
--- NOTE | 2024-02-19 13:22 | P.PN_ITS ---
Subjective 2 Subjective: Patient has multiple episode of nonsustained ventricular tachycardia this morning he was restarted on IV amiodarone, despite of that patient had sustained VT requiring electrical cardioversion. Patient was taken to the Business Analysis Professional to assess the anatomy. He was noted to have normal IFR of the RCA mid and distal 50% lesion however mid left circumflex lesion in many views appeared to be significant visually and around 75 to 80%. iFR was performed though it turns out to be borderline at 0.92 because of the fact that patient has sustained and nonsustained multiple ventricular tachycardia we decided to proceed with PCI of mid circumflex. Patient tolerated procedure well and transferred back to ICU. Vitals/I&O/Wt Last Vital Signs Temp 97.7 F 02/19/24 04:15 Pulse 71 02/19/24 10:30 Resp 23 H 02/19/24 10:30 BP 112/61 02/19/24 10:30 Pulse Ox 96 02/19/24 10:30 O2 Del Method Room Air 02/19/24 06:00 02/18/24 02/19/24 02/19/24 22:59 06:59 14:59 Intake Total 545 / 645 1171.397 / 1816.397 0 / 0 Output Total 425 / 650 300 / 950 300 / 300 Balance 120 / -5 871.397 / 866.397 -300 / -300 Weight last 48 hrs Weight 165 lb 5.547 oz Weight 178 lb 9.191 oz Weight 200 lb Physical Exam 2 Const: COMMON NORMALS: alert OTHER: GENERAL: Patient is alert, awake and oriented x3. HEART: Regular S1 and S2. No murmur, rub or gallop. LUNGS: Clear to auscultate bilaterally. CENTRAL NERVOUS SYSTEM: Grossly nonfocal. EXTREMITIES: Lower extremities with out edema bilaterally. Resp: COMMON NORMALS: clear to auscultation bilaterally AUSCULTATION: clear to auscultation bilaterally Neuro: SENSORIUM/ORIENTATION: Yes alert Data 02/19/24 04:30 02/19/24 04:30 A&P Assessment and plan (1) Sustained VT (ventricular tachycardia): (2) Congestive heart failure with left ventricular systolic dysfunction (LVSD): (3) Ischemic cardiomyopathy: (4) Acute renal failure (ARF): Plan As defined above patient was taken to the Business Analysis Professional, he was treated with drug- eluting stent to mid circumflex for significant lesion. Continue aspirin statin Plavix. I will continue amiodarone IV for today and switch him to p.o Plan to contact EP cardiology for possible ICD and study. Continue beta-kyra Attestations 2 Medical Necessity Statement*: Patient require continuation hospitalization for above defined care Coding Level of Care Code Acute Code for Chg Fwd Diagnoses Sustained VT (ventricular tachycardia) I47.20 Congestive heart failure with left ventricular systolic dysfunction (LVSD) I50.20 Ischemic cardiomyopathy I25.5 Acute renal failure (ARF) N17.9
[2024-02-19] MEDS: sodium chloride 0.9% 1,000 ML 100 ML IV (13:43)
--- NOTE | 2024-02-19 14:09 | PM.PN ---
Subjective Subjective: Overnight patient had bradycardia for which amiodarone was discontinued. Today morning patient had episodes of nonsustained V. tach and 1 episode of persistent V. tach for which he had to be defibrillated. Patient placed back on amiodarone drip. Today morning on examination laying comfortably in bed, awake and alert, heart rate stable at 70 bpm with occasional VPCs. Blood pressure stable. Has remained on room air. Vitals/I&O/Wt Last Vital Signs Temp 97.7 F 02/19/24 04:15 Pulse 71 02/19/24 10:30 Resp 23 H 02/19/24 10:30 BP 112/61 02/19/24 10:30 Pulse Ox 96 02/19/24 10:30 O2 Del Method Room Air 02/19/24 06:00 02/18/24 02/19/24 02/19/24 22:59 06:59 14:59 Intake Total 545 / 645 1171.397 / 1816.397 143.875 / 143.875 Output Total 425 / 650 300 / 950 300 / 300 Balance 120 / -5 871.397 / 866.397 -156.125 / -156.125 Weight last 48 hrs Weight 75 kg Weight 81 kg Weight 90.718 kg Physical Exam Narrative: General: No acute distress, AO x3 HEENT: PERRLA, pupils bilaterally equal and reactive Chest: Normal vesicular breath sounds, no added sounds, equal good air entry bilaterally CVS: S1-S2 irregularly regular, Pansystolic murmur at mitral radiating to anterior axillary line, fourth intercostal space left retrosternal, no tachycardia, no gallops, no rubs Abdomen: Soft, nontender, no organomegaly, bowel sounds present Neuro: No focal deficits, no facial deformity, AO x3, power 5/5 in all limbs Data 02/19/24 04:30 02/19/24 04:30 A&P Assessment and plan (1) Non-sustained ventricular tachycardia: Being worked up as an outpatient for ICD placement. Recently deferred because of concerns for dental infection at [facility]. Troponin cycled negative.. States recently has had angiogram within last 1 week which was reported normal. 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 Follow-up echocardiogram. D-dimer elevated. Patient remains on room air. Low concerns for PE. Will check lower limb Dopplers. Monitor electrolytes. Target potassium around 4, magnesium around 2. Will replace accordingly. Appreciate QTc. Replace 1 g of IV magnesium Follow-up continue with amiodarone drip. If patient continues to have persistent ventral tachycardia will plan to transition to lidocaine drip. Amiodarone 400 mg twice daily. Daily oral magnesium supplementation. Care discussed with cardiology. Discussed the angiography report Outside hospital. Given concerns for recurrent weeping patient would benefit for repeat angiogram and possible FFR to rule out ACS reason for nonsustained VT. Keep n.p.o. for possible angiogram. Continue with metoprolol 25 mg twice daily. (2) Ischemic cardiomyopathy: Last echocardiogram from May 2023 showed an EF of 30%, severe global LV hypokinesia, grade 1 diastolic dysfunction, moderate MR, trace TR. Currently euvolemic. Continue with normal saline at 100 cc/h as per cardiology team for now. No concerns for fluid overload for now. Given soft blood pressures for now we will hold off on spironolactone and Entresto. Continue with metoprolol, baby aspirin, Plavix is on withhold given need for recent AICD. (3) Congestive heart failure with left ventricular systolic dysfunction (LVSD): (4) Benign essential HTN: Goal blood pressure less than 140/90 mmHg mean over 65. Metoprolol as above. Entresto on hold as above. (5) Chronic kidney disease: Baseline creatinine recently within last year 1.4-1.6. Creatinine improving to 1.4. Currently on IV fluid as above. Monitor daily. Medical reconciliation done for nephrotoxic drugs. Monitor daily. Plan Full code Cardiac diet Protonix OPD prophylaxis Heparin 5000 every 12 hourly for DVT prophylaxis Attestations Medical Necessity Statement*: Requires further hospitalization for management of V. tach requiring defibrillation in a patient with history of ischemic cardiomyopathy, EF of 25-30 %, CAD while ACS reason for ruled out Critical Care Time: The high probability of a clinically significant, sudden or life threatening deterioration of the patient's [cardiac, renal] system(s) required my full and direct attention, intervention and personal management. The critical care time is as shown. This time is in addition to time spent performing any reported procedures but includes the following: [x] Data and vital sign review and interpretation [x] Patient assessment, examination and intervention [x] Documentation [x] Medication orders and management Critical Care Time (min): 60 Coding Level of Care Code Critical Care >/= 30 minutes Critical care time (in minutes): 60 The high probability of a clinically significant, sudden or life threatening deterioration, as referenced in this documentation, required my full and direct attention, intervention and personal management. The critical care time shown is in addition to time spent performing any reported separately billable procedures and includes the following: [x] Data and vital sign review and interpretation [x] Patient assessment, examination and intervention [x] Medication orders and management [x] Patient/Family updates as able [x] Care Coordination and Documentation. Diagnoses Non-sustained ventricular tachycardia I47.29 Ischemic cardiomyopathy I25.5 Congestive heart failure with left ventricular systolic dysfunction (LVSD) I50.20 Benign essential HTN I10 Chronic kidney disease N18.9
--- NOTE | 2024-02-19 14:35 | PC.NURSE ---
received patient back form ear mold laboratory technician staff. Heart rate in the mid 60's, occaisonal PVCs. RIght wrist access, R band in place with 16ml of air. Site is unremarkable. Patient is oriented to person, place, time, and situation. NUrse called derek and updated her.
--- NOTE | 2024-02-19 14:37 | PC.NURSE ---
heart rate observed to occasionally go down into the mid 40's. Nurse alerted Dr ibrahim. Ordered to turn amiodarone from 1mg/min to 0.5mg/min
[2024-02-19] MEDS: amiodarone 200 mg Tablet 400 MG PO (17:27)
[2024-02-19] MEDS: aspirin 81 mg EC Tablet PO (17:27)
--- NOTE | 2024-02-19 17:57 | PC.NURSE ---
Shift SUmmary: Vtach this morning resulting in cardioversion. Went to label press operator today and had 1 stent placed. Started on plavix. amiodarone drip restarted. If any questions regarding cardiac medications, please contact Dr Carrera at any time of day or night.
[2024-02-20] VITALS (49 sets, daily range): BP systolic 101–159; BP diastolic 57–105; PULSE 54–94; RESP 0–23; TEMP 36.7–37.1; O2SAT 90–98
[2024-02-20 06:09] LABS: Basophils # 0.1 10^3/uL (0.0-0.1); Basophils % 0.7 %; Eosinophils # 0.1 10^3/uL (0.0-0.8); Eosinophils % 1.3 %; Hematocrit 44.8 % (37-53); Lymphocytes # 1.5 10^3/uL (0.8-4.8); Lymphocytes % 16.7 %; Mean Corpuscular HGB Conc 33.3 g/dL (30-55); Mean Corpuscular Hemoglobin 31.6 pg (27-33); Mean Corpuscular Volume 94.9 fl (82-101); Mean Platelet Volume 10.7 fL (7.4-10.4); Monocytes # 0.6 10^3/uL (0.2-0.9); Monocytes % 6.5 %; Neutrophils # 6.72 10^3/uL (1.8-7.7); Neutrophils % 74.6 %; Nucleated Red Blood Cells % 0 %; Platelet Count 146 10^3/cmm (157-399); Red Blood Count 4.72 10^6/uL (3.85-5.65); Red Cell Distribution Width 12.8 % (12.1-15.1); White Blood Count 9.02 10^3/uL (3.29-11.43)
[2024-02-20 06:23] LABS: Alanine Aminotransferase 15 U/L (0-41); Albumin Level 3.9 g/dL (3.5-5.2); Alkaline Phosphatase 114 U/L (40-130); Anion Gap 16.2 (5-19); Aspartate Amino Transferase 15 U/L (0-40); Blood Urea Nitrogen 11 mg/dL (8-23); Calcium 8.7 mg/dL (8.5-10.5); Carbon Dioxide 20 mmol/L (22-29); Chloride 105 mmol/L (98-107); Globulin 2.4 g/dL (1.3-4.6); Glucose 110 mg/dL (65-115); Osmolality Calculated 284 mOsm/kg (285-295); Potassium 4.2 mmol/L (3.5-5.1); Sodium 137 mmol/L (136-145); Total Bilirubin 1.1 mg/dL (0.15-1.2); Total Protein 6.3 g/dL (6.6-8.7)
[2024-02-20] MEDS: clopidogrel 75 mg Tablet PO (08:36)
[2024-02-20] MEDS: ezetimibe 10 mg Tablet PO (08:36)
[2024-02-20] MEDS: pantoprazole 40 mg SDV IVP (08:36)
[2024-02-20] MEDS: amiodarone 200 mg Tablet 400 MG PO ×2 (08:36→18:03)
[2024-02-20] MEDS: metoprolol tartrate 25 mg Tablet PO (08:36)
[2024-02-20] MEDS: heparin 5,000 unit/mL INJ 1 mL 5000 UNIT SUBCUT ×2 (08:37→20:55)
[2024-02-20] MEDS: magnesium oxide 400 mg tablet PO ×2 (08:37→18:02)
--- NOTE | 2024-02-20 11:40 | P.PN_ITS ---
Subjective 2 Subjective: He had FOX to the mid circumflex yesterday for sustained VT and borderline significant lesion. Overnight no more ventricular tachycardia. He received a dose of metoprolol tartrate 25mg oral this morning, will switch him to metoprolol succinate 25mg daily. Blood pressure soft today. Vitals/I&O/Wt Last Vital Signs Temp 98.7 F 02/20/24 08:00 Pulse 61 02/20/24 10:00 Resp 16 02/20/24 10:00 BP 105/62 02/20/24 10:00 Pulse Ox 90 02/20/24 09:30 O2 Del Method Room Air 02/19/24 17:30 02/19/24 02/20/24 02/20/24 22:59 06:59 14:59 Intake Total 120 / 463.875 165.559 / 970.299 2862 / 1200 Output Total 1075 / 1775 400 / 1775 Balance -955 / -1311.125 -234.441 / -2320.715 1473 / 1200 Weight last 48 hrs Weight 187 lb Weight 187 lb 6.287 oz Weight 187 lb 6.287 oz Physical Exam 2 Const: COMMON NORMALS: no acute distress and patient oriented x3 GENERAL APPEARANCE: cooperative and comfortable ORIENTATION/CONSCIOUSNESS: Yes awake, Yes oriented to person, Yes oriented to place and Yes oriented to time Chest: COMMONS NORMALS: normal inspection of the chest and normal palpation of entire chest wall CHEST: Yes Symmetrical chest wall rise Resp: COMMON NORMALS: normal respiratory effort, No retractions, No use of accessory muscles and clear to auscultation bilaterally EFFORT & INSPECTION: Yes symmetric chest movement AUSCULTATION: clear to auscultation bilaterally Cardio: COMMON NORMALS: regular rate, regular rhythm, S1 normal heart sound present, S2 normal heart sound present, No gallops present (Cardio), No clicks present (Cardio), No murmurs present (Cardio) and No rub (Cardio) RATE: r egular rate RHYTHM: regular rhythm HEART SOUNDS: S1 normal heart sound present and S2 normal heart sound present PERIPHERAL PULSES: radial pulses present Extremity: COMMON NORMALS: no pedal edema Neuro: COMMON NORMALS: patient oriented x3 and moves all extremities S ENSORIUM/ORIENTATION: Yes oriented to person, Yes oriented to place and Yes oriented to time Data 02/20/24 05:51 02/20/24 05:51 A&P Assessment and plan (1) Sustained VT (ventricular tachycardia): No more VT overnight. Will continue Amiodarone 400mg BID, he has had two doses of PO amiodarone already. 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 If he has no more episodes of VT, can transfer to [facility]. (2) Congestive heart failure with left ventricular systolic dysfunction (LVSD): He appears euvolemic today. (3) Ischemic cardiomyopathy: S/P FOX to mid circumflex. Continue aspirin, Plavix, zetia, metoprolol. (4) Acute renal failure (ARF): Creatinine 1.3 today, improved from 1.4-1.6 in the last 2 days. No diuretics. Attestations 2 Medical Necessity Statement*: Patient require continuation hospitalization for above defined care Coding Level of Care Code Acute Code for [facility] Fwd Diagnoses Sustained VT (ventricular tachycardia) I47.20 Congestive heart failure with left ventricular systolic dysfunction (LVSD) I50.20 Ischemic cardiomyopathy I25.5 Acute renal failure (ARF) N17.9
--- NOTE | 2024-02-20 14:35 | PC.SOCIAL ---
IMM Updated Updated pt on IMM. No questions voiced. Provided pt a copy. Initialed, dated, & timed a copy & placed in chart.
--- NOTE | 2024-02-20 15:17 | P.PN_ITS ---
Subjective 2 Subjective: Patient seen walking in the [place] without her oxygen denies shortness of breath or chest pain Vitals/I&O/Wt Last Vital Signs Temp 98.5 F 02/20/24 12:00 Pulse 74 02/20/24 14:00 Resp 17 02/20/24 14:00 BP 105/62 02/20/24 10:00 Pulse Ox 95 02/20/24 14:00 O2 Del Method Room Air 02/19/24 17:30 02/20/24 02/20/24 02/20/24 06:59 14:59 22:59 Intake Total 165.559 / 203.636 8637.149 / 1591.149 Output Total 400 / 1775 Balance -234.441 / -4697.957 9145.149 / 1591.149 Weight last 48 hrs Weight 84.822 kg Weight 85 kg Weight 85 kg Physical Exam 2 Narrative: Appears stated age of 73 he is thin well-nourished well-hydrated Heart regular rate and rhythm no loud murmur Lungs clear to auscultation without wheezes rales or rhonchi Abdomen soft nontender nondistended positive bowel sounds Extremities no clubbing cyanosis or edema Data 02/20/24 05:51 02/20/24 05:51 A&P Assessment and plan (1) Non-sustained ventricular tachycardia: Patient has now been arrhythmia free for 24 hours. He has been placed on oral amiodarone. He is status post stent placement of the circumflex. Further plan per cardiology (2) Ischemic cardiomyopathy: Last echocardiogram from May 2023 showed an EF of 30%, severe global LV hypokinesia, grade 1 diastolic dysfunction, moderate MR, trace TR. Per catheterization report patient has triple-vessel disease while a stent was placed in the circumflex during this hospitalization (3) Congestive heart failure with left ventricular systolic dysfunction (LVSD): As above (4) Benign essential HTN: Goal blood pressure less than 140/90 mmHg mean over 65. Metoprolol as above. Entresto on hold as above. (5) Chronic kidney disease: Baseline creatinine recently within last year 1.4-1.6. Creatinine improving to 1.3. C Plan Full code Cardiac diet Protonix OPD prophylaxis Heparin 5000 every 12 hourly for DVT prophylaxis Attestations 2 Medical Necessity Statement*: Requires further hospitalization for management of V. tach requiring defibrillation in a patient with history of ischemic cardiomyopathy, EF of 25-30 %, CAD while ACS reason for ruled out Coding Level of Care Code Acute Code for [facility] Fwd Diagnoses Non-sustained ventricular tachycardia I47.29 Ischemic cardiomyopathy I25.5 Congestive heart failure with left ventricular systolic dysfunction (LVSD) I50.20 Benign essential HTN I10 Chronic kidney disease N18.9
[2024-02-20] MEDS: aspirin 81 mg EC Tablet PO (18:03)
[2024-02-21] VITALS (37 sets, daily range): BP systolic 99–136; BP diastolic 58–94; PULSE 55–93; RESP 11–23; TEMP 36.7–37.1; O2SAT 89–96
[2024-02-21 04:49] LABS: Magnesium 1.9 mg/dL (1.7-2.3)
[2024-02-21] MEDS: clopidogrel 75 mg Tablet PO (08:36)
[2024-02-21] MEDS: amiodarone 200 mg Tablet 400 MG PO (08:36)
[2024-02-21] MEDS: metoprolol succinate ER (24 HR) 25 mg Tablet PO (08:37)
[2024-02-21] MEDS: heparin 5,000 unit/mL INJ 1 mL 5000 UNIT SUBCUT (08:37)
[2024-02-21] MEDS: ezetimibe 10 mg Tablet PO (08:37)
[2024-02-21] MEDS: magnesium oxide 400 mg tablet PO (08:37)
[2024-02-21] MEDS: pantoprazole 40 mg SDV IVP (08:37)
--- NOTE | 2024-02-21 09:18 | P.PN_ITS ---
<Statement entered by Sailaja Carrera MD - 02/21/24 21:25> Patient was evaluated and cared for in conjunction with an advanced practice practitioner. I personally examined the patient and reviewed the chart and all pertinent data including imaging, telemetry, and laboratory results. I discussed the patient in detail with the advanced practice practitioner. Please see their note for complete H&P testing result and agreed upon plan of care for the patient. No more VT's, discussed plan in detail with Dr. Claire EP exhaust and muffler repairer from [facility], patient will be transferred for EP study today. Discussed in detail with patient's and patient regarding plan all in agreement GENERAL: Patient is alert, awake and oriented x3. HEART: Regular S1 and S2. No murmur, rub or gallop. LUNGS: Clear to auscultate bilaterally. CENTRAL NERVOUS SYSTEM: Grossly nonfocal. EXTREMITIES: Lower extremities with out edema bilaterally. Assessment and plan Sustained ventricular tachycardia Nonsustained ventricular tachycardia Ischemic cardiomyopathy status post PCI to mid circumflex for eccentric 75% lesion thought to be significant Continue aspirin statin beta-kyra amiodarone and clopidogrel Patient will be transferred to [facility] for EP study Subjective 2 Subjective: He has done well overnight, no recurrence of VT. Blood pressure well controlled, no chest pain. Patient was discussed with Dr Claire in [place], plan is to transfer patient via ambulance for direct admission to electrophysiolgy service, plan for possible ICD or VT ablation. Vitals/I&O/Wt Last Vital Signs Temp 98.0 F 02/21/24 05:30 Pulse 67 02/21/24 06:00 Resp 18 02/21/24 06:00 BP 99/63 02/21/24 06:00 Pulse Ox 94 02/21/24 06:00 O2 Del Method Room Air 02/19/24 17:30 02/20/24 02/21/24 02/21/24 22:59 06:59 14:59 Intake Total 120 / 1831.149 120 / 1831.149 Output Total 1100 / 1300 200 / 1300 Balance -980 / 531.149 -80 / 531.149 Weight last 48 hrs Weight 182 lb Weight 184 lb Weight 187 lb Weight 187 lb 6.287 oz Physical Exam 2 Const: COMMON NORMALS: no acute distress and patient oriented x3 GENERAL APPEARANCE: cooperative and comfortable ORIENTATION/CONSCIOUSNESS: Yes awake, Yes oriented to person, Yes oriented to place and Yes oriented to time Chest: COMMONS NORMALS: normal inspection of the chest and normal palpation of entire chest wall CHEST: Yes Symmetrical chest wall rise Resp: COMMON NORMALS: normal respiratory effort, No retractions, No use of accessory muscles and clear to auscultation bilaterally EFFORT & INSPECTION: Yes symmetric chest movement AUSCULTATION: clear to auscultation bilaterally Cardio: COMMON NORMALS: regular rate, regular rhythm, S1 normal heart sound present, S2 normal heart sound present, No gallops present (Cardio), No clicks present (Cardio), No murmurs present (Cardio) and No rub (Cardio) RATE: r egular rate RHYTHM: regular rhythm HEART SOUNDS: S1 normal heart sound present and S2 normal heart sound present PERIPHERAL PULSES: radial pulses present Extremity: COMMON NORMALS: no pedal edema Neuro: COMMON NORMALS: patient oriented x3 and moves all extremities S ENSORIUM/ORIENTATION: Yes oriented to person, Yes oriented to place and Yes oriented to time Data 02/20/24 05:51 02/20/24 05:51 A&P Assessment and plan (1) Sustained VT (ventricular tachycardia): No recurrence of VT. Plan to transfer to [place], under care of Dr Calire, home health occupational therapist for further evaluation and management- possible ICD or VT ablation. He is in stable condition. (2) Congestive heart failure with left ventricular systolic dysfunction (LVSD): He appears well compensated. (3) Ischemic cardiomyopathy: FOX x1 to mid circumflex on 02/19/24, no chest pain or shortness of breath. Continue aspirin, Plavix, metoprolol, Zetia. (4) Acute renal failure (ARF): No labs today. Good urine output. No diuretics. Attestations 2 Medical Necessity Statement*: plan to discharge home Coding Level of Care Code Acute Code for [facility] Diagnoses Sustained VT (ventricular tachycardia) I47.20 Congestive heart failure with left ventricular systolic dysfunction (LVSD) I50.20 Ischemic cardiomyopathy I25.5 Acute renal failure (ARF) N17.9
--- NOTE | 2024-02-21 16:55 | PM.DCS ---
Discharge Providers Date of Admission: 02/18/24 08:25 Date of Discharge: February 21, 2024 Attending Provider at Admission: Duane Garcia MD Attending Provider at Discharge: Jeronimo Trujillo DO Consults: Dr. Carrera Primary Care Provider: Nabeel Zarate MD Diagnoses at Discharge Discharge Diagnosis (1) Sustained VT (ventricular tachycardia): Status: Acute (2) Congestive heart failure with left ventricular systolic dysfunction (LVSD): Status: Acute (3) Ischemic cardiomyopathy: Status: Acute (4) Acute renal failure (ARF): Status: Acute Reason for Visit Reason for Visit: clem macario fired Brief History: Patient with multiple episodes of syncope his LifeVest was about to discharge but he stopped it overnight he kept having episodes of palpitations and finally came to the emergency room when she was found to have multiple episodes of nonsustained V. tach. Hospital Course Hospital Course Patient was admitted to the ICU he was placed on amiodarone for the V. tach. However he continued to have episodes of V. tach. Dr. Nicole was consulted and took him to the [facility] where he found a significant lesion in the circumflex artery and this was stented. Since that intervention he has had no further episodes of V. tach. Dr. Carrera was in touch the EP physician at [facility] [place] who agreed for direct admission for an EP study. 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 Laboratory Results WBC 9.02 10^3/uL (3.29-11.43) 02/20/24 05:51 RBC 4.72 10^6/uL (3.85-5.65) 02/20/24 05:51 Hgb 14.90 g/dL (11.27-16.99) 02/20/24 05:51 Hct 44.8 % (37-53) 02/20/24 05:51 MCV 94.9 fl (82-101) 02/20/24 05:51 MCH 31.6 pg (27-33) 02/20/24 05:51 MCHC 33.3 g/dL (30-55) 02/20/24 05:51 RDW 12.8 % (12.1-15.1) 02/20/24 05:51 Plt Count 146 10^3/cmm (157-399) L 02/20/24 05:51 MPV 10.7 fL (7.4-10.4) H 02/20/24 05:51 Neut % (Auto) 74.6 % 02/20/24 05:51 Lymph % (Auto) 16.7 % 02/20/24 05:51 [place] % (Auto) 6.5 % 02/20/24 05:51 Eos % (Auto) 1.3 % 02/20/24 05:51 Baso % (Auto) 0.7 % 02/20/24 05:51 Neut # (Auto) 6.72 10^3/uL (1.8-7.7) 02/20/24 05:51 Lymph # (Auto) 1.5 10^3/uL (0.8-4.8) 02/20/24 05:51 [place] # (Auto) 0.6 10^3/uL (0.2-0.9) 02/20/24 05:51 Eos # (Auto) 0.1 10^3/uL (0.0-0.8) 02/20/24 05:51 Baso # (Auto) 0.1 10^3/uL (0.0-0.1) 02/20/24 05:51 Nucleated RBC % (auto) 0 % 02/20/24 05:51 Nucleated RBCs # 0.0 /100WBC 02/20/24 05:51 PT 13.20 SECONDS (12.1-14.9) 02/18/24 06:18 INR 0.94 (0.8-1.2) 02/18/24 06:18 D-Dimer 19.56 ug/mLFEU (0-0.59) H 02/18/24 06:18 Sodium 137 mmol/L (136-145) 02/20/24 05:51 Potassium 4.2 mmol/L (3.5-5.1) 02/20/24 05:51 Chloride 105 mmol/L (98-107) 02/20/24 05:51 Carbon Dioxide 20 mmol/L (22-29) L 02/20/24 05:51 Anion Gap 16.2 (5-19) 02/20/24 05:51 BUN 11 mg/dL (8-23) 02/20/24 05:51 Creatinine 1.3 mg/dL (0.7-1.2) H 02/20/24 05:51 GFR Calculation Not Reportable 02/20/24 05:51 Glucose 110 mg/dL (65-115) 02/20/24 05:51 Estimat Average Glucose 114 02/19/24 04:30 Hemoglobin A1c 5.6 % (4.0-6.0) 02/19/24 04:30 Calculated Osmolality 284 mOsm/kg (285-295) L 02/20/24 05:51 Lactic Acid 3.2 mmol/L (0.5-2.2) H 02/18/24 06:18 Lactic Acid (Sepsis) 1.5 mmol/L (0.5-2.2) 02/18/24 11:01 Calcium 8.7 mg/dL (8.5-10.5) 02/20/24 05:51 Phosphorus 3.1 mg/dL (2.5-4.5) 02/19/24 04:30 Magnesium 1.9 mg/dL (1.7-2.3) 02/21/24 03:07 Iron 64 ug/dL (59-158) 02/18/24 08:25 TIBC 304 mcg/dl 02/18/24 08:25 % Saturation 21.0 % (20-50) 02/18/24 08:25 Unsat Iron Binding 240 ug/dL (112-347) 02/18/24 08:25 Total Bilirubin 1.1 mg/dL (0.15-1.2) 02/20/24 05:51 AST 15 U/L (0-40) 02/20/24 05:51 ALT 15 U/L (0-41) 02/20/24 05:51 Alkaline Phosphatase 114 U/L (40-130) 02/20/24 05:51 Troponin T Baseline 30 ng/L (0-15) H 02/18/24 06:18 Troponin T 120 Minute 28.84 ng/L (0-15) H 02/18/24 08:25 Delta Troponin T -1.16 ABS# (0-10) L 02/18/24 08:25 Troponin T Hi Sens 6Hr 26.34 ng/L (0-15) H 02/18/24 13:50 Troponin T Hi Sens 6Hr Delta -3.66 ng/L (0-12) L 02/18/24 13:50 NT-Pro-B Natriuret Pep 1102 pg/mL (0-125) H 02/18/24 06:18 Total Protein 6.3 g/dL (6.6-8.7) L 02/20/24 05:51 Albumin 3.9 g/dL (3.5-5.2) 02/20/24 05:51 Globulin 2.4 g/dL (1.3-4.6) 02/20/24 05:51 Triglycerides 137 mg/dL (0-150) 02/19/24 04:30 Cholesterol 134 mg/dL (0-200) 02/19/24 04:30 LDL Cholesterol, Calc 82 mg/dL (50-129) 02/19/24 04:30 HDL Cholesterol 25 mg/dL (60-100) L 02/19/24 04:30 LDL/HDL Ratio 3.28 RATIO (0.00-3.22) H 02/19/24 04:30 Cholesterol/HDL Ratio 5.36 mg/dL (1.0-5.00) H 02/19/24 04:30 Vitamin B12 480 pg/mL (232-1245) 02/18/24 08:25 Folate 5.5 ng/mL (4.5-32.2) 02/19/24 04:30 Procalcitonin 0.06 ng/mL (0-0.5) 02/19/24 04:30 TSH 6.21 uIU/mL (0.27-4.20) H 02/18/24 08:25 Free T4 1.29 ng/dL (0.82-1.77) 02/18/24 06:18 Free T3 2.6 PG/ML (2.0-4.4) 02/18/24 06:18 Urine Color Yellow (Yellow) 02/18/24 12:20 Urine Appearance Clear (CLEAR) 02/18/24 12:20 Urine pH 5.0 (5-7) 02/18/24 12:20 Ur Specific [place] 1.026 (1.005-1.030) 02/18/24 12:20 Urine Protein Trace (Negative) A 02/18/24 12:20 Urine Glucose (UA) 3+ (Normal) H 02/18/24 12:20 Urine Ketones Negative (Negative) 02/18/24 12:20 Urine Blood 2+ (Negative) A 02/18/24 12:20 Urine Nitrate Negative (Negative) 02/18/24 12:20 Urine Bilirubin Negative (Negative) 02/18/24 12:20 Urine Urobilinogen 1.0 mg/dL (Negative) 02/18/24 12:20 Ur Leukocyte Esterase Negative (Negative) 02/18/24 12:20 Urine RBC 3-5 /hpf (0-2) 02/18/24 12:20 Urine WBC 0-5 /hpf (0-5) 02/18/24 12:20 Ur Squamous Epith Cells 0-5 /hpf (0-5) 02/18/24 12:20 Amorphous Sediment Not Reportable 02/18/24 12:20 Urine Bacteria None seen /hpf (NONE) 02/18/24 12:20 Hyaline Casts 0.40 /lpf 02/18/24 12:20 Ur Random Sodium 103 mmol/L 02/18/24 12:20 Ur Random Potassium 30 mmol/L 02/18/24 12:20 Ur Random Chloride 85 mmol/L 02/18/24 12:20 Vitals Last Vital Signs Temp 98.8 F 02/21/24 08:00 Pulse 74 02/21/24 12:00 Resp 18 02/21/24 12:00 BP 128/76 02/21/24 12:00 Pulse Ox 92 02/21/24 12:00 O2 Del Method Room Air 02/19/24 17:30 Discharge Plan Discharge Patient Disposition: Home Condition: Stable Prescriptions: Continued nitroglycerin 0.4 mg tablet, sublingual 0.4 mg sublingual Q5M PRN (Reason: Chest Pain) Qty: 30 0RF aspirin [Karli Low Dose Aspirin] 81 mg Tablet,Delayed Release (Dr/Ec) 81 mg PO QPM ketoconazole 2 % shampoo See Rx Instructions .ROUTE .COMPLEX Rx Instructions: Lather onto SCALP and brown two TO three times weekly. allow TO sit FIVE minutes before rinsing. metoprolol succinate 50 mg tablet extended release 24 hr 50 mg PO DAILY amiodarone 200 mg tablet 200 mg PO BID spironolactone 25 mg tablet 12.5 mg PO DAILY Jardiance 10 mg tablet See Rx Instructions .ROUTE .COMPLEX Rx Instructions: TAKE 1 TABLET BY MOUTH EVERY DAY with breakfast clopidogrel 75 mg tablet 75 mg PO DAILY Rx Instructions: TAKE 1 TABLET BY MOUTH DAILY docusate sodium [Stool Softener] 250 mg capsule 250 mg PO BID PRN (Reason: constipation ) Rx Instructions: take 1 capsule BY MOUTH TWICE DAILY FOR CONSTIPATION ezetimibe 10 mg tablet 10 mg PO DAILY sacubitril-valsartan [Entresto] 24-26 mg tablet 1 tab PO BID ascorbic acid (vitamin C) [Vitamin C] 1,000 mg Tablet 1,000 mg PO DAILY [place] 325 mg Tablet 325 mg PO DAILY PRN (Reason: constipation ) melatonin 10 mg Tablet 10 mg PO BEDTIME PRN (Reason: Sleep) ibuprofen [Advil] 200 mg Tablet 600 mg PO Q6H PRN (Reason: Pain) Discharge Orders: Discharge Order (Routine); Ordered 02/21/24 Ordered By: Jeronimo Trujillo Referrals: Nabeel Zarate MD [Primary Care Provider] - Discharge Diet: As Directed Discharge Activity: Limit activity as instructed Patient Instructions: Supraventricular Tachycardia (DC), Coronary Angioplasty (DC), Acute Kidney Injury (DC), Chronic Kidney Disease (DC), Decision Aid for Stable Ischemic Heart Disease (GEN), Opioid Safety Discharge Attestations Time Spent in Discharge Care*: greater than 30 min Status at Discharge: Cognitive status at discharge: cognitively intact, Behavioral status at discharge: cooperative, Quality Metrics Clinical Quality Measures [ No reported AMI, CVA or VTE this stay] Coding Level of Care Code Acute Code for [facility] Fwd Diagnoses Sustained VT (ventricular tachycardia) I47.20 Congestive heart failure with left ventricular systolic dysfunction (LVSD) I50.20 Ischemic cardiomyopathy I25.5 Acute renal failure (ARF) N17.9
== END 2024-02-21 17:25 | disposition home or self-care (01) | DRG 322 ==
LOC: ER 08:00 → ICU 09:18
PROVIDERS: Internal Medicine Cardiovascular Disease; Admitting Provider Student in an Organized Health Care Education/Training Program; Emergency Provider Family Medicine; PCP Family Medicine Adult Medicine; Visit Provider Internal Medicine
PROC: 027034Z Dilation of Coronary Artery, One Artery with Drug-eluting Intraluminal Device, Percutaneous Approach (ICD-10-PCS; principal; 2024-02-19 11:00)
PROC: 027034Z Dilation of Coronary Artery, One Artery with Drug-eluting Intraluminal Device, Percutaneous Approach (ICD-10-PCS; 2024-02-19 11:00)
DX: I47.20 Ventricular tachycardia, unspecified (principal); I13.0 Hypertensive heart and chronic kidney disease with heart failure and stage 1 through stage 4 chronic kidney disease, or unspecified chronic kidney disease; I50.22 Chronic systolic (congestive) heart failure; N17.9 Acute kidney failure, unspecified; I25.10 Atherosclerotic heart disease of native coronary artery without angina pectoris; N18.9 Chronic kidney disease, unspecified; I25.5 Ischemic cardiomyopathy; Z95.810 Presence of automatic (implantable) cardiac defibrillator; Z79.82 Long term (current) use of aspirin; Z79.02 Long term (current) use of antithrombotics/antiplatelets; I25.2 Old myocardial infarction; K59.09 Other constipation; F12.90 Cannabis use, unspecified, uncomplicated; E78.5 Hyperlipidemia, unspecified; Z82.49 Family history of ischemic heart disease and other diseases of the circulatory system; R00.1 Bradycardia, unspecified; Z87.891 Personal history of nicotine dependence
CPT/HCPCS: 36415; 71045; 80053; 80061; 81001; 82436; 82607; 82746; 83036; 83540; 83550; 83605; 83735; 83880; 84100; 84133; 84145; 84300; 84439; 84443; 84481; 84484; 85025; 85347; 85378; 85610; 93005; 93454; 93571; 93572; 94664; 96365; 96372; 96374; 96375; 96376; 99152; 99153; 99285; A4222; C1725; C1769; C1874; C1887; C1894; C9600; J0283; J1644; J2250; J2270; J2371; J2405; J2470; J3010; J3475; J3490; J7030; Q9967

== ENCOUNTER → 2024-05-07 13:44 | Outpatient (BNVA) | payer MEDICARE, SELFPAY | PROVIDERS: PCP Family Medicine Adult Medicine; Visit Provider Family Medicine | DX: E78.5 Hyperlipidemia, unspecified (principal); K59.09 Other constipation; Z79.899 Other long term (current) drug therapy; I47.20 Ventricular tachycardia, unspecified | CPT/HCPCS: 80053; 84439; 84443 ==